=== PATIENT | female | born 1990 | race Caucasian/White ===

== ENCOUNTER 2019-07-19 11:20 | Outpatient (CLI) | payer OTHER, SELFPAY ==
--- NOTE | ~2019-07-19 | US_ITS ---
EXAMINATION: US breast LT limited HISTORY: Palpable lump of the subareolar aspect of the left breast TECHNIQUE: Limited left breast ultrasound is performed. FINDINGS: There is no evidence of focal abnormal cystic or solid mass in the vicinity of the reported left breast lump. IMPRESSION: No specific sonographic correlate is identified for the reported palpable abnormality of concern. Fur ther evaluation at this time should be based on clinical assessment. Continued follow-up physical exa mination is recommended. BI-RADS Category 1: Negative Reviewed, dictated and finalized at location A. IMPRESSION: No specific sonographic correlate is identified for the reported palpable abnor mality of concern. Further evaluation at this time should be based on clinical assessment. Continued follow-up physical examination is recommended. BI-RADS Category 1: Negative
== END 2019-07-19 11:21 | disposition home or self-care (01) ==
DX: N63.20 Unspecified lump in the left breast, unspecified quadrant (principal)
CPT/HCPCS: 76642

== ENCOUNTER 2019-11-15 15:05 | Emergency (ER) | payer OTHER, SELFPAY ==
[2019-11-15 15:18] VITALS: BP 161/95; PULSE 100; RESP 20; TEMP 36.1; O2SAT 100
--- NOTE | 2019-11-15 15:47 | ECG_ITS ---
Measurements Intervals Superior Rate: 86 P: 23 TX: 147 QRS: 22 QRSD: 89 T: 3 QT: 386 QTc: 462 Interpretive Statements SINUS RHYTHM BORDERLINE T WAVE ABNORMALITY- INFERIOR LEADS BASELINE ARTIFACT- II, III, AVF BORDERLINE ECG Electronically Signed On 11-15-2019 18:05:47 CDT by Rey Chandler D.O.
--- NOTE | 2019-11-15 15:57 | ED.GENADULT ---
HPI - General Adult General Chief complaint: Unspecified Stated complaint: chest pain/dizzy Time Seen by Provider: 11/15/19 15:20 Source: patient and RN notes reviewed Mode of arrival: ambulatory Limitations: no limitations History of Present Illness HPI narrative: patient presents today complaining of chest burning to the midline chest since yesterday. States she had some left sided pains yesterday that have since resolved. The left sided pain does not resemble the current discomfort she is experiencing. Denies pain at this time. She has been moving heavy objects last weekend because she is moving homes. She also had some Chipotle to eat yesterday but states her discomfort doesn't feel like the 1 episode of heartburn she has experienced in the past. Denies nausea, vomiting, dizziness, lightheadedness, shortness of breath, chills, sweats, fever, abdominal pain. She tried Pepto once today without relief. Denies personal cardiac history except for HTN. Denies family cardiac history. MD complaint: chest burning. Related Data Home Medications Medication Instructions Recorded Confirmed losartan 50 mg DAILY 11/15/19 11/15/19 norgestimate-ethinyl estradiol 1 tablet DAILY 11/15/19 11/15/19 [Sprintec (28)] Allergies Allergy/AdvReac Type Severity Reaction Status Date / Time No Known Allergies Allergy Verified 11/15/19 15:13 Review of Systems Review of Systems: Narrative: CONSTITUTIONAL: Denies body aches, fever, chills, or sweats. EYES: Denies visual changes, redness, or discharge. ENT: Denies rhinorrhea, congestion, sore throat, or otalgia. CARDIOVASCULAR: Denies chest pain, palpitations, or edema. +chest discomfort RESPIRATORY: Denies cough or dyspnea. GASTROINTESTINAL: Denies abdominal pain, nausea, vomiting, or diarrhea. GENITOURINARY: Denies dysuria or hematuria. SKIN: Denies rash, itching, or wounds. MUSCULOSKELETAL: Denies back pain, joint pain, or myalgia. NEUROLOGIC: Denies headache, numbness, tingling, or weakness. PSYCH: Denies depression or anxiety. [facility] Past Medical History Medical History (Updated 11/15/19 @ 16:32 by Lisa Donovan, VARNISH MELTER, BC) Hypertension Family History Family History (Updated 12/10/11 @ 14:17 by DOCTOR UNKNOWN) Other Family history of malignant neoplasm of ovary Social History Social History Smoking status: Never smoker Alcohol intake: never Gender identity (if verbalized by the patient): Female Comments At time of signature, I have reviewed and agree with nursing past medical, surgical, social and family history unless otherwise noted. Please see nursing chart for further information. There is no relevant family history pertinent to the presenting complaint Exam Narrative: Exam Narrative: GENERAL: Well-appearing, well-nourished, and in no acute distress. HEAD: Normocephalic, atraumatic. EYES: EOMI. No redness or drainage. Conjunctivae normal. ENT: Mucous membranes pink and moist. NECK: Normal AROM. Supple. No lymphadenopathy. CHEST: No respiratory distress. Clear to auscultation. Chest is nontender HEART: Regular rate and rhythm. No murmur appreciated. Normal peripheral pulses. ABDOMEN: Soft, nontender, nondistended, normal active bowel sounds. MUSCULOSKELETAL: No bony tenderness. EXTREMITIES: Normal range of motion. No edema. SKIN: Warm, dry, no rash. Capillary refill normal. Normal skin turgor. NEURO: No focal deficits. Alert and oriented x3. Gait steady. PSYCH: Normal affect. No signs of depression or anxiety. Course Vital Signs Vital signs: Vital Signs Temperature 97 F L 11/15/19 15:18 Pulse Rate 100 11/15/19 15:18 Respiratory Rate 11/15/19 15:18 Blood Pressure 161/95 H 11/15/19 15:18 Pulse Oximetry 100 11/15/19 15:18 Temperature 97 F L 11/15/19 15:18 Pulse Rate 100 11/15/19 15:18 Respiratory Rate 11/15/19 15:18 Blood Pressure 161/95 H 11/15/19 15:18 Pulse Oximetry 100 11/15/19 15:18
== END 2019-11-15 16:10 | disposition home or self-care (01) ==
PROVIDERS: Emergency Provider Nurse Practitioner
DX: R07.89 Other chest pain (principal); I10 Essential (primary) hypertension
CPT/HCPCS: 93005; 99213; G0463

== ENCOUNTER 2020-05-25 12:21 | Outpatient (CLI) | payer OTHER, SELFPAY ==
--- NOTE | ~2020-05-25 | MMUS_ITS ---
EXAMINATION: MM diagnostic kaylan BI w shamir, US breast RT complete HISTORY: Palpable right breast lump TECHNIQUE: Additional 3-D tomosynthesis images of the breasts were performed and synthetic 2-D images were generated. CAD analysis was submitted and interpreted. High resolution complete right breast ul trasound was performed. COMPARISON: Ultrasound dated 07/19/2019 BREAST PARENCHYMAL COMPOSITION: Breast composed of scattered areas of fibroglandular density. FINDINGS: MAMMOGRAPHIC FINDINGS: There are no suspicious masses, calcifications or architectural distortion in either breast to sugges t malignancy. ULTRASOUND: Complete right breast ultrasound: At 9:00 near the nipple there is an 8 mm cyst. No suspicious masses to suggest malignancy. IMPRESSION: 1. No evidence for malignancy in either breast. 2. Routine yearly screening mammogram and regular clinical breast examination are recommended. BI-RADS Category 2: Benign finding(s). Reviewed, dictated and finalized at location A. IMPRESSION: 1. No evidence for malignancy in either breast. 2. Routine yearly screening mammogram and regular clinical breast examination a re recommended. BI-RADS Category 2: Benign finding(s).
== END 2020-05-25 12:22 | disposition home or self-care (01) ==
LOC: ANHIMG 12:25
DX: N63.10 Unspecified lump in the right breast, unspecified quadrant (principal)
CPT/HCPCS: 76641; 77062; 77066; G0279

== ENCOUNTER 2023-01-13 10:37 | Outpatient (CLI) | payer OTHER, SELFPAY ==
--- NOTE | ~2023-01-13 | XR_ITS ---
EXAMINATION: XR hysterosalpingogram DATE: 01/13/2023 12:42 INDICATION: Infertility TECHNIQUE: Multiple fluoroscopic images were obtained during contrast infusion into the endometrial c anal of the uterus by the primary physician. Fluoroscopy exposure time was 0.6 minutes. FINDINGS: The uterine cavity demonstrates normal morphology. The fallopian tubes are normal in caliber and pat ent bilaterally. There is normal spillage of contrast into the peritoneum on both sides. IMPRESSION: 1. Normal hysterosalpingogram. Reviewed, dictated and finalized at location A. RAME TECHNICIAN
[2023-01-13 12:09] LABS: Beta HCG Quantitative < 2.39 mIU/ML
== END 2023-01-13 10:38 | disposition home or self-care (01) ==
PROVIDERS: Visit Provider Obstetrics & Gynecology
DX: N97.2 Female infertility of uterine origin (principal)
CPT/HCPCS: 36415; 58340; 74740; 84702; Q9966

== ENCOUNTER 2023-02-24 15:29 | Outpatient (CLI) | payer OTHER, SELFPAY ==
--- NOTE | ~2023-02-24 | MM_ITS ---
EXAMINATION: MM screening kaylan BI w shamir HISTORY: Screening mammogram TECHNIQUE: Craniocaudal and mediolateral oblique 3-D tomosynthesis images were obtained and synthetic 2-D images were generated. CAD analysis was submitted and interpreted. COMPARISON: 05/25/2020 diagnostic bilateral mammogram and complete right breast ultrasound examination 07/19/2019 limited left breast ultrasound BREAST PARENCHYMAL COMPOSITION: There are scattered areas of fibroglandular density. FINDINGS: There is no evidence of suspicious mass, calcification, or architectural distortion to sugg est malignancy in either breast. There has been no suspicious interval change. IMPRESSION: 1. No mammographic evidence of malignancy. 2. Recommend routine screening mammography in one year. BI-RADS Category 1: Negative... Reviewed, dictated and finalized at location A. NIGHT STOCKER
== END 2023-02-24 15:30 | disposition home or self-care (01) ==
PROVIDERS: Visit Provider Internal Medicine
DX: Z12.31 Encounter for screening mammogram for malignant neoplasm of breast (principal)
CPT/HCPCS: 77063; 77067

== ENCOUNTER 2023-06-12 00:43 | Inpatient (IN) | payer OTHER, SELFPAY ==
[2023-06-12] VITALS (35 sets, daily range): BP systolic 128–165; BP diastolic 63–96; PULSE 65–93; RESP 14–22; TEMP 36.3–37.2; O2SAT 96–100; BMI 40.7
--- NOTE | ~2023-06-12 | CT_ITS ---
EXAMINATION: CT abdomen pelvis w con DATE: 06/19/2023 13:35 INDICATION: Acute pancreatitis. Abdominal pain. TECHNIQUE: Computed tomography (CT) of the abdomen and pelvis was performed with 100 mL Omnipaque 350 intravenous contrast. Automated exposure control and iterative reconstruction technique were employe d. The dose-length product was 1450.10 mGy-cm. COMPARISON: CT abdomen and pelvis 06/12/2023 FINDINGS: The visualized portions of the lung bases demonstrate mild atelectasis. There are small ple ural effusions. The heart size is normal. No pericardial effusion. The liver is normal. There are gal lstones in the gallbladder, which is normal in size. The spleen, adrenal glands, and kidneys are norm al. There is extensive fat stranding centered at the pancreas with small volume of free fluid. The pa ncreas enhances throughout. There are no dilated loops of bowel. The appendix is not visualized. Ther e are no pathologically enlarged lymph nodes. There is a small volume of pelvic ascites. The bones ar e unremarkable. There is mild lumbar spondylosis. IMPRESSION: 1. Acute interstitial pancreatitis. 2. Cholelithiasis. 3. Small volume of ascites. 4. Small pleural effusions. Reviewed, dictated and finalized at location A.
--- NOTE | ~2023-06-12 | CT_ITS ---
Clinical Indication: Febrile illness CT Scan of the Chest, Abdomen, and Pelvis with Contrast: Technique: Contiguous sections were acquired throughout the chest, abdomen, and pelvis after intraven ous administration of 100 cc of Omnipaque 350. Dose reduction technique was used on this scan by francisco yepez automated exposure control and iterative reconstruction technique. The dose-length product (DL P) was 1559.88 mGy-cm. COMPARISON: 06/19/2023 Findings: There is no evidence of any significant mediastinal, hilar or axillary lymphadenopathy. The mediastin al soft tissues and vascular structures appear normal. No pericardial effusion. There is moderate left pleural effusion with partial left lower lobe atelectasis. There is discoid ri ght basilar atelectasis. The liver, spleen, pancreas, gallbladder, adrenals and kidneys are within normal limits. There is ext ensive peripancreatic inflammatory change extending into the right lower quadrant and left lower quad rant as well as in the paracolic gutters, as well as of into the epigastric region and gastrosplenic region. No definite pancreatic necrosis or pseudocyst evident. No evidence of aortic aneurysm. No ly mphadenopathy. No bowel obstruction or bowel wall thickening. There is no evidence to suggest acute appendicitis. Urinary bladder is unremarkable. No adnexal mass seen. No pelvic ascites. Impression: Acute pancreatitis is similar to prior exam, with extensive intra-abdominal/peritoneal inflammatory c hange. No pancreatic necrosis or pseudocyst evident. Moderate left pleural effusion with bibasilar atelectasis. Reviewed, dictated and finalized at [facility]. Impression: Acute pancreatitis is similar to prior exam, with extensive intra-abdominal/per itoneal inflammatory change. No pancreatic necrosis or pseudocyst evident. Moderate left pleural effusion with bibasilar atelectasis.
--- NOTE | ~2023-06-12 | MR_ITS ---
EXAMINATION: MR MRCP wo/w con/w 3D wo ind DATE: 06/13/2023 12:43 INDICATION: Transaminitis. Cholelithiasis. Epigastric abdominal pain. TECHNIQUE: Magnetic resonance imaging (MRI) of the abdomen was performed without and with 20 mL Multi Ezra intravenous contrast. Sequences included coronal T2-weighted FS FSE, coronal T2-weighted FSE, a xial T1-weighted LAVA, coronal FS FIESTA, axial dual-echo T1-weighted SPGR, coronal lava-FLEX, sagitt al T2-weighted FSE, axial T2-weighted FSE, and axial DWI. Thick-slab T2-weighted FSE images were obta ined for magnetic resonance cholangiopancreatography (MRCP). Maximum intensity projection 3-D reconst ructions of the volumetric data were created by the technologist. Postcontrast sequences included cor onal LAVA-flex and time course of axial T1-weighted LAVA. COMPARISON: CT abdomen and pelvis 06/12/2023 FINDINGS: ABDOMEN MRI: There are small pleural effusions. There is diffuse hepatic steatosis. The gallbladder i s normal in size and contains gallstones. Gallbladder wall thickening is noted. There is fat strandin g and free fluid around the pancreas, consistent with acute interstitial pancreatitis. The spleen, ad renal glands, and kidneys are normal. There are no dilated loops of bowel. There is a small volume of ascites. There is thrombus in right hepatic vein and inferior vena cava. ABDOMEN MRCP: The common duct is normal and measures 5 mm. No choledocholithiasis. IMPRESSION: 1. Acute interstitial pancreatitis. 2. Cholelithiasis. Gallbladder wall thickening is likely secondary to interstitial edema. 3. Thrombus in right hepatic vein and inferior vena cava. 4. Small volume of ascites. 5. Small pleural effusions. 6. Diffuse hepatic steatosis. Reviewed, dictated and finalized at location A. IMPRESSION: 1. Acute interstitial pancreatitis. 2. Cholelithiasis. Gallbladder wall thickening is likely secondary to interstit ial edema. 3. Thrombus in right hepatic vein and inferior vena cava. 4. Small volume of ascites. 5. Small pleural effusions. 6. Diffuse hepatic steatosis.
--- NOTE | ~2023-06-12 | CT_ITS ---
EXAMINATION: CT abdomen pelvis w con DATE: 06/12/2023 04:04 INDICATION: Right upper quadrant abdominal pain. TECHNIQUE: Computed tomography (CT) of the abdomen and pelvis was performed with 100 mL Omnipaque 350 intravenous contrast. Automated exposure control and iterative reconstruction technique were employe d. The dose-length product was 1488.47 mGy-cm. COMPARISON: None. FINDINGS: The visualized portions of the lung bases demonstrate mild atelectasis. No pleural effusion . The heart size is normal. No pericardial effusion. The liver and spleen are normal. There are galls tones in the gallbladder, which is distended. There is a 3 mm stone in the common duct. The pancreas and adrenal glands are normal. The kidneys are normal. There are no dilated loops of bowel. The appen nathan is normal. There are no pathologically enlarged lymph nodes. There is no free intraperitoneal flu id. There is mild lumbar spondylosis. IMPRESSION: 1. 3 mm stone in the common duct. No duct dilatation. 2. Cholelithiasis. Gallbladder distention may be secondary to fasting or acute cholecystitis. Reviewed, dictated and finalized at location A.
--- NOTE | ~2023-06-12 | US_ITS ---
EXAMINATION: US right upper quadrant DATE: 06/12/2023 07:40 INDICATION: Acute cholecystitis. TECHNIQUE: Multiple grayscale and Doppler ultrasound images of the abdomen were obtained. COMPARISON: CT abdomen and pelvis 06/12/2023 FINDINGS: The visualized portions of the head and body of the pancreas are normal. There is diffuse h epatic steatosis. There is normal flow in main portal vein. The gallbladder is normal in size. There are gallstones in the gallbladder. No gallbladder wall thickening or sonographic Trujillo sign. The com mon duct is normal and measures 4 mm. IMPRESSION: 1. Cholelithiasis. No evidence of acute cholecystitis. 2. Diffuse hepatic steatosis. Reviewed, dictated and finalized at location A.
--- NOTE | ~2023-06-12 | XR_ITS ---
EXAMINATION: XR ERCP DATE: 06/12/2023 15:10 CDT INDICATION: STONES . TECHNIQUE: 3 fluoroscopic images of the right upper quadrant were obtained during ERCP, performed by Dr. Kuhn. I was not present during the procedure. Fluoroscopy exposure time was 128.4 seco nds. Air Kerma 52.46 mGy. DAP 1.61 mGym2. COMPARISON: CT abdomen pelvis and right upper quadrant ultrasound, same date FINDINGS/IMPRESSION: Fluoroscopic documentation of ERCP. Please refer to the operative note for complete procedural detail s. Reviewed, dictated and finalized at location K.
[2023-06-12 01:19] LABS: Basophils Absolute Auto 0.1 K/mm3 (0.0-0.1); Basophils Percent Auto 0.7 % (0.2-1.2); Eosinophils Absolute Auto 0.2 K/mm3 (0-0.3); Eosinophils Percent Auto 2.2 % (0-4.4); Hematocrit 41.8 % (37.0-47.0); Immature Granulocyte Absolute 0.02 K/mm3 (0.00-0.031); Immature Granulocyte Percent A 0.2 % (0-0.5); Lymphocytes Absolute Auto 3.29 K/mm3 (0.9-3.2); Lymphocytes Percent Auto 35.1 % (18.3-44.2); Mean Corpuscular HGB Conc 31.1 g/dl (32-36); Mean Corpuscular Hemoglobin 25.6 pg (26-34); Mean Corpuscular Volume 82.4 fl (80-100); Monocytes Percent Auto 10.4 % (2.6-8.5); Neutrophils Absolute Auto 4.8 K/mm3 (1.3-6.7); Neutrophils Percent Auto 51.4 % (45.5-73.1); Platelet Count Result 367 k/mm3 (150-375); Red Blood Count 5.07 M/mm3 (4.2-5.4); Red Cell Distribution Width 14.4 % (11.5-14.5); White Blood Count 9.4 K/mm3 (4.5-10.0)
--- NOTE | 2023-06-12 01:35 | PC.NURSE ---
Pt aware of need for urine sample.
[2023-06-12 02:07] LABS: Alanine Aminotransferase 47 U/L (6-35); Albumin Level 4.2 g/dL (3.5-5.1); Alkaline Phosphatase 106 U/L (38-126); Anion Gap 5 mmol/L (4-12); Aspartate Amino Transferase 52 U/L (14-36); Bilirubin,Total 0.4 mg/dL (0.2-1.3); Blood Urea Nitrogen 15 mg/dL (7-17); Calcium 9.3 mg/dL (8.4-10.2); Carbon Dioxide 28 mmol/L (22-30); Chloride 105 mmol/L (98-107); Estimated CRCL calculation 113 ml/min; Estimated Glomerular Filt Rate > 60; Glucose 126 mg/dL (65-110); Lipase 82 U/L (23-300); Potassium 4.1 mmol/L (3.4-5.0); Sodium 138 mmol/L (137-145)
[2023-06-12 03:42] LABS: Appearance Urine Cloudy (Clear); Bacteria Urine None Seen /hpf; Bilirubin Urine Negative (Negative); Blood Urine Negative (Negative); Color Urine Yellow (Yellow); Glucose Urine UA Negative (Negative); Ketones Urine Negative (Negative); Leukocyte Esterase Ur Negative LEU/UL (Negative); Nitrate Urine Negative (Negative); Non Pathogenic Casts 0-2; Protein Urine Negative (Negative); RBC Urine 0-2 /hpf (0-2); Specific Grav Ur 1.019 (1.001-1.035); Squamous Epithelial Cell Urine None Seen /hpf (Few); WBC Urine 0-5 /hpf (0-3); pH Urine 7.5 (5.0-9.0)
[2023-06-12 03:46] LABS: Add Urine Microscopic? YES
--- NOTE | 2023-06-12 05:36 | ED.ABDPAIN ---
HPI - Abdominal Pain General Chief Complaint: Abdominal Pain Stated Complaint: epigastric pain Time Seen by Provider: 06/12/23 02:27 History of Present Illness HPI narrative: Patient is a 32-year-old female who presents to the emergency department this evening complaining of right upper quadrant and mid epigastric abdominal pain. Patient states that the pain started around 10:00 p.m. and it was 1 of the worst pain she has ever experienced. Patient states that since then the pain has subsided and right now she feels a dull ache that starts in her mid epigastric right upper quadrant region and radiates through to her back. Patient admits nausea and vomiting secondary to the pain. She denies any previous abdominal surgeries, any recent illness, any fevers or chills, and denies any chest pain or shortness of breath. There are no other modifying, alleviating, or precipitating factors at the Related Data Home Medications Medication Instructions Recorded Confirmed losartan 50 mg tablet 50 mg DAILY 11/15/19 11/15/19 norgestimate 0.25 mg-ethinyl 1 tablet DAILY 11/15/19 11/15/19 estradiol 35 mcg tablet (Sprintec (28)) Allergies Allergy/AdvReac Type Severity Reaction Status Date / Time No Known Allergies Allergy Verified 11/15/19 15:13 Review of Systems Review of Systems: All systems are reviewed and are negative unless stated otherwise in the HPI. [facility] Past Medical History Medical History Hypertension Family History Family History Other Family history of malignant neoplasm of ovary Social History Social History Smoking status: Never smoker Alcohol intake: never Gender identity (if verbalized by the patient): Female Exam Narrative: General: Alert, awake, afebrile, in no acute distress. HEENT: PERRL, no rhinorrhea, no post nasal drip, oropharynx clear. Neck: Trachea midline, no JVD, no lymphadenopathy. Cardiovascular: Regular rate and rhythm, no murmurs, rubs or gallops, no peripheral edema. Respiratory: Clear to auscultation bilaterally, no tachypnea, no wheezing, no rhonchi, no rubs, no respiratory distress. Abdomen: Soft, mild tenderness in the midepigastric region, nondistended, no rebound, no guarding, no peritoneal signs. Musculoskeletal: No joint swelling or deformity, normal muscle tone. Skin: No rashes or petechia, no signs of infection. Psychiatric: Alert and oriented, normal behavior and judgment for situation. Neurological: Alert and oriented to person, place, and time. Follows all commands. No focal deficits, speech is clear and fluent. Course Vital Signs Vital signs: Vital Signs Temperature 98.6 F 06/12/23 00:46 Pulse Rate 75 06/12/23 00:46 Respiratory Rate 18 06/12/23 00:46 Blood Pressure 147/83 H 06/12/23 00:46 Pulse Oximetry 99 06/12/23 00:46 Oxygen Delivery Room Air 06/12/23 00:46 Temperature 98.6 F 06/12/23 00:46 Pulse Rate 79 06/12/23 06:26 Respiratory Rate 16 06/12/23 06:26 Blood Pressure 133/74 06/12/23 06:26 Pulse Oximetry 100 06/12/23 06:26 Oxygen Delivery Room Air 06/12/23 00:46 MDM - Abdominal Pain MDM Narrative Medical decision making narrative: The patient was evaluated by myself in the emergency department. History is obtained from patient who is an independent historian and physical exam was performed. External medical records were reviewed at this time. IV was established and pertinent tests were ordered. Patient was administered 50 mg of IV Toradol after urine test was noted to be negative and started on maintenance fluids with normal saline at a rate of 150 cc/hour. Patient was also administered 4 mg of IV Zofran. Laboratory results obtained revealing mild transaminitis, otherwise unremarkable. Imaging studies obtained include
[2023-06-12] MEDS: KETOROLAC 15 MG/ML VIAL (*BKC) IV PUSH (05:50)
--- NOTE | 2023-06-12 07:31 | PM.IMHP ---
H&P: HPI History of Present Illness Date/Time: 06/12/23 07:31 Chief Complaint: Abdominal pain Narrative: 32 years old lady with history of hypertension, present ED with a chief complaint of abdomen pain. Patient started having right upper quadrant pain yesterday at about 10:00 p.m., radiating to the back. Patient has intermittent nausea vomiting because of pain. Patient denies fever, chills, chest pain, shortness of breath t, headache, focal weakness, dysuria. Patient came to ED for evaluation and treatment. Upon arrival in the ED, patient was afebrile, blood pressure stable, pulse ox 90 room air, CBC and BMP are unremarkable, CT scan report 3 mm stone in the common duct without duct dilatation, gallstone, gallbladder distension suggesting acute cholecystitis. Patient received Rocephin in the ED. We admit patient will for evaluation and treatment Review of Systems Review of Systems: ROS is negative except above PMFSH Past Medical History Medical History Hypertension Family History Family History Other Family history of malignant neoplasm of ovary Social History Social History Smoking status: Never smoker Alcohol intake: never Substance use: never Do You Feel Safe in your Home?: Yes Lack of Transportation: No Lack of Food: Never True Current Housing: I Have Housing Concerned About Future Housing: No Difficulty Paying Gas/Electric Bills: No Difficulty Paying for Meds: No Currently Unemployed: No Education: Decline to Answer Difficulty w/ Childcare or Family Care: No Gender identity (if verbalized by the patient): Female Spiritual care concerns: No Meds Home Medications and Allergies Home Medications Medication Instructions Recorded Confirmed Type labetalol 100 mg tablet See Rx Instructions .Route .COMPLEX 06/12/23 06/12/23 History Allergies Allergy/AdvReac Type Severity Reaction Status Date / Time No Known Allergies Allergy Verified 06/12/23 13:53 Vital Signs Vital Signs - 24 hr 06/12/23 00:46 06/12/23 02:19 06/12/23 01:19 Temperature 98.6 F Pulse Rate 75 76 Respiratory Rate 18 16 Blood Pressure 147/83 H 135/73 Pulse Oximetry 99 100 100 Oxygen Delivery Room Air 06/12/23 01:30 06/12/23 01:31 06/12/23 01:54 Temperature Pulse Rate 90 Respiratory Rate 22 H Blood Pressure 141/78 H Pulse Oximetry 99 100 100 Oxygen Delivery 06/12/23 02:09 06/12/23 02:15 06/12/23 02:19 Temperature Pulse Rate 69 Respiratory Rate 18 Blood Pressure 135/79 Pulse Oximetry 100 100 100 Oxygen Delivery 06/12/23 02:30 06/12/23 02:31 06/12/23 02:45 Temperature Pulse Rate 65 Respiratory Rate 14 Blood Pressure 129/77 Pulse Oximetry 100 100 100 Oxygen Delivery 06/12/23 02:46 06/12/23 03:00 06/12/23 03:01 Temperature Pulse Rate 70 Respiratory Rate 14 Blood Pressure 141/94 H 128/63 Pulse Oximetry 99 100 100 Oxygen Delivery 06/12/23 03:16 06/12/23 03:17 06/12/23 03:30 Temperature Pulse Rate Respiratory Rate Blood Pressure 132/66 Pulse Oximetry 100 100 99 Oxygen Delivery 06/12/23 03:31 06/12/23 04:14 06/12/23 04:15 Temperature Pulse Rate 86 Respiratory Rate 19 Blood Pressure 165/85 H Pulse Oximetry 99 99 100 Oxygen Delivery 06/12/23 04:25 06/12/23 04:44 06/12/23 04:45 Temperature Pulse Rate 77 Respiratory Rate 16 Blood Pressure 133/86 Pulse Oximetry 100 99 97 Oxygen Delivery 06/12/23 06:26 Temperature Pulse Rate 79 Respiratory Rate 16 Blood Pressure 133/74 Pulse Oximetry 100 Oxygen Delivery Exam Narrative: GENERAL: Pleasant, in no acute distress. Well-nourished. - EYES: EOMI. Anicteric. - HENT: Moist mucous membranes. - LUNGS: Clear to auscultation b
--- NOTE | 2023-06-12 07:42 | PC.NURSE ---
Pt to U/S via w/c.
--- NOTE | 2023-06-12 08:35 | ADMGEN ---
This patient, Narcisa Dupont, was admitted to 3 [facility] Surg Room 315-02 @ 08. Patient/family oriented to hospital policies and general routines including ID bracelet, bed and alarms, visiting hours, pain management, procedures, bathroom and other care routines, personal items, smoking policy, room service/diet, and visiting hours. Information on how to activate the Rapid Response Team has been discussed. Patient/Family are encouraged to report perceived risks to care and to ask questions if they do not understand what they are told or what they should do.
[2023-06-12] MEDS: LACTATED RINGERS 1,000 ML 100 ML IV CONT (09:25)
[2023-06-12] MEDS: metroNIDAZOLE 500 MG/ISO 100ML 500 MG/100 ML BAG 100 MG IVPB ×2 (09:28→21:05)
[2023-06-12] MEDS: LACTATED RINGERS 1,000 ML 150 ML IV CONT (13:59)
--- NOTE | 2023-06-12 14:02 | WPDANESEPPF ---
Anes - Initial Pre Proc Eval Procedure: Operation Date: 06/12/23 15:30 Proposed Procedures p Endoscopic Retro Cholangiopancreatogram - Jhoan Kuhn MD Date/Time: 06/12/23 14:02 Surgeon: Camron Gu MD Pre Op Diagnosis: Concern for Acute Cholecystitis Patient Data Age: 32 Gender: F Height: 1.6 m Weight: 104.33 kg Last Vital Signs Temp 97.4 F L 06/12/23 13:56 Pulse 85 06/12/23 13:56 Resp 16 06/12/23 13:56 BP 138/82 06/12/23 13:56 Pulse Ox 100 06/12/23 13:56 O2 Del Method Room Air 06/12/23 13:56 Allergies Allergy/AdvReac Type Severity Reaction Status Date / Time No Known Allergies Allergy Verified 06/12/23 13:53 Home Medications Medication Instructions Recorded Confirmed Type labetalol 100 mg tablet See Rx Instructions .Route .COMPLEX 06/12/23 06/12/23 History Laboratory Tests 06/12/23 06/12/23 06/12/23 01:14 01:48 03:30 WBC 9.4 K/mm3 (4.5-10.0) RBC 5.07 M/mm3 (4.2-5.4) Hgb 13.0 g/dL (12.0-15.0) Hct 41.8 % (37.0-47.0) MCV 82.4 fl (80-100) MCH 25.6 L pg (26-34) MCHC 31.1 L g/dl (32-36) RDW 14.4 % (11.5-14.5) Plt Count 367 k/mm3 (150-375) MPV 10.0 fl (7.4-10.4) Immature Gran % (Auto) 0.2 % (0-0.5) Neut % (Auto) 51.4 % (45.5-73.1) Lymph % (Auto) 35.1 % (18.3-44.2) [place] % (Auto) 10.4 H % (2.6-8.5) Eos % (Auto) 2.2 % (0-4.4) Baso % (Auto) 0.7 % (0.2-1.2) Lymph # (Auto) 3.29 H K/mm3 (0.9-3.2) [place] # (Auto) 1.0 H K/mm3 (0.1-0.6) Eos # (Auto) 0.2 K/mm3 (0-0.3) Baso # (Auto) 0.1 K/mm3 (0.0-0.1) Abs Immat Gran (auto) 0.02 K/mm3 (0.00-0.031) Absolute Neuts (auto) 4.8 K/mm3 (1.3-6.7) Absolute Nucleated RBC 0.000 K/mm3 (0.0-0.012) Nucleated RBC % 0.0 % (0.0-0.2) Sodium 138 mmol/L (137-145) Potassium 4.1 mmol/L (3.4-5.0) Chloride 105 mmol/L (98-107) Carbon Dioxide 28 mmol/L (22-30) Anion Gap 5 mmol/L (4-12) BUN 15 mg/dL (7-17) Creatinine 0.70 mg/dL (0.7-1.0) Estim Creat Clear Calc 113 ml/min Estimated GFR > 60 (59 - ) Glucose 126 H mg/dL (65-110) Calcium 9.3 mg/dL (8.4-10.2) Total Bilirubin 0.4 mg/dL (0.2-1.3) AST 52 H U/L (14-36) ALT 47 H U/L (6-35) Alkaline Phosphatase 106 U/L (38-126) Total Protein 8.0 g/dL (6.3-8.2) Albumin 4.2 g/dL (3.5-5.1) Lipase 82 U/L (23-300) Urine Color Yellow (Yellow) Urine Appearance Cloudy H (Clear) Urine pH 7.5 (5.0-9.0) Ur Specific [place] 1.019 (1.001-1.035) Urine Protein Negative mg/dL (Negative) Urine Glucose (UA) Negative mg/dL (Negative) Urine Ketones Negative mg/dL (Negative) Ur Blood (Man) Negative (Negative) Urine Nitrate Negative (Negative) Urine Bilirubin Negative (Negative) Urine Urobilinogen 1.0 mg/dL (<2.0) Leukocyte Esterase Rfl Negative TITO/UL (Negative) Urine RBC 0-2 /hpf (0-2) Urine WBC 0-5 /hpf (0-3) Ur Squamous Epith Cells None seen /hpf (Few) Urine Bacteria None seen /hpf Urine Casts 0-2 Patient hx anesthesia problems: none Family hx anesthesia problems: none Results Review: All pre-operative results and documents have been reviewed as part of the pre-operative evaluation. PMFSH Past Medical History Medical History Hypertension Family History Family History Other Family history of malignant n
--- NOTE | 2023-06-12 15:10 | WPDGICN ---
Assessment and Plan Assessment and plan (1) RUQ pain: Code(s): R10.11 - Right upper quadrant pain Status: Acute Assessment and Plan: CT reviewed and small stone in bile duct she is agreeable to proceed with ERCP to assess biliary system, understood benefit vs risk including pancreatitis surgery on board, may need interval cholecystectomy (2) Nausea & vomiting: Code(s): R11.2 - Nausea with vomiting, unspecified Status: Acute Assessment and Plan: resolved (3) Choledocholithiasis with acute cholecystitis: Code(s): K80.42 - Calculus of bile duct with acute cholecystitis without obstruction Status: Acute Assessment and Plan: will proceed with ercp (4) Transaminitis: Code(s): R74.01 - Elevation of levels of liver transaminase levels Status: Acute GI Consult Note Consult date/time: 06/12/23 15:10 Reason for consult: ruq pain, choledocholithiasis HPI: Narcisa Dupont is a 32 year old female with history of hypertension, present ED with a chief complaint of new onset of abdomen pain.? She had right upper quadrant pain yesterday at about 10:00 p.m and radiated to the back, never had such as severe pain, also had nausea.? ER evaluation with normal bili, transaminases 45-50, CT scan report 3 mm stone in the common duct without duct dilatation, gallstone, gallbladder distension suggesting acute cholecystitis. Pain is better now. Denies previous GI surgeries. Review of Systems Constitutional: Constitutional: Denies headache(s) and Denies weakness Eyes: Eyes: Denies blurry vision ENT: Reports Normal hearing present, Denies headache(s) and Denies neck pain Cardiovascular: Cardiovascular: Denies chest pain and Denies dyspnea Respiratory: Respiratory: Denies dyspnea Gastrointestinal: Gastrointestinal: Reports abdominal pain and Reports nausea Genitourinary: Genitourinary: Denies dysuria Musculoskeletal: Musculoskeletal: Denies neck pain Integumentary/Breasts: Skin/Breast: Denies dry skin Neurologic: Reports Normal hearing present, Denies headache(s) and Denies weakness Psychiatric: Psychiatric: Denies anxiety Endocrine: Endocrine: Denies change in body appearance Hematologic/Lymphatic: Hematologic/Lymphatic: Denies easy bleeding Allergic/Immunologic: Allergic/Immunologic: Denies urticaria PMFSH Past Medical History Medical History (Updated 06/12/23 @ 16:40 by Jhoan Kuhn MD) Hypertension RUQ pain Family History Family History Other Family history of malignant neoplasm of ovary Social History Social History Smoking status: Never smoker Alcohol intake: never Substance use: never Do You Feel Safe in your Home?: Yes Lack of Transportation: No Lack of Food: Never True Current Housing: I Have Housing Concerned About Future Housing: No Difficulty Paying Gas/Electric Bills: No Difficulty Paying for Meds: No Currently Unemployed: No Education: Decline to Answer Difficulty w/ Childcare or Family Care: No Gender identity (if verbalized by the patient): Female Spiritual care concerns: No Meds Home Medications and Allergies Home Medications Medication Instructions Recorded Confirmed Type labetalol 100 mg tablet See Rx Instructions .Route .COMPLEX 06/12/23 06/12/23 History Allergies Allergy/AdvReac Type Severity Reaction Status Date / Time No Known Allergies Allergy Verified 06/12/23 13:53 Vital Signs Vital Signs - 24 hr 06/12/23 00:46 06/12/23 02:19 06/12/23 01:19 Temperature 98.6 F Pulse Rate 75 76 Respiratory Rate 18 16 Blood Pressure 147/83 H 135/73 Pulse Oximetry 99 100 100 Oxygen Delivery Room Air 06/12/23 01:30 06/12/23 01:31 06/12/23 01:54 Temperature Pulse Rate 90 Respiratory Rate 22 H Blood Pressure 141/78 H Pulse Oxime
[2023-06-12] MEDS: INDOMETHACIN 50 MG SUPP.RECT RECTAL (15:44)
--- NOTE | 2023-06-12 18:58 | WPDCN ---
Assessment and Plan Assessment and plan (1) Cholelithiasis: Code(s): K80.20 - Calculus of gallbladder without cholecystitis without obstruction Status: Acute Assessment and Plan: patient has cholelithiasis on abdominal ultrasound. No evidence of acute or chronic cholecystitis seen. Her recent episode of acute epigastric abdominal pain can be explained by likely passage of a common bile duct stone. No evidence of acute cholecystitis. She does not have any right upper quadrant pain to palpation at this time. I think she has passed a small gallstone which caused her to have the pain and her ERCP was negative for retained common bile duct stone. I discussed with her the risks of recurrent choledocholithiasis given that she has gallstones which are the right side to get out of her gallbladder. Have recommended that she have a elective laparoscopic cholecystectomy to prevent further episodes of common bile duct stones and possible development of gallstone pancreatitis. She is agreeable to this plan. I think she is tolerating diet tomorrow and doing well that she we discharged home. I will then have her follow-up see me in the office to set up an elective laparoscopic cholecystectomy in the near future. (2) Choledocholithiasis: Code(s): K80.50 - Calculus of bile duct without cholangitis or cholecystitis without obstruction Status: Acute Assessment and Plan: Likely passed a common bile duct stone. No retained stone was seen on ERCP. She does have residual cholelithiasis and I recommended that she undergo laparoscopic cholecystectomy electively as an outpatient. HPI Data of Consult Date/Time: 06/12/23 18:58 Requesting Physician: Camron Gu MD Primary Care Provider: UNKNOWN,DOCTOR Consult Narrative Reason for consult: cholelithiasis, common bile duct stone Narrative: Narcisa Dupont is a 32 year old female was admitted [facility] with severe epigastric and abdominal pain which radiated to her back. That was her 1st episode. Her workup in the emergency room showed a likely 3mm common bile duct stone CT scan. She was admitted to the hospital and seen by Dr. Ochoa who performed an ERCP on the patient. He swept the common bile duct and did not find a retained common bile duct stone. Did perform a sphincterotomy. The patient denies having any prior episodes of epigastric and right upper quadrant abdominal pain. She has not had any problems with eating and having pain or nausea. Abdominal ultrasound performed prior to her ERCP showed cholelithiasis but no obvious evidence of acute or chronic cholecystitis. I have been asked to see the patient for an opinion as to whether patient needs to have a cholecystectomy. Review of Systems Review of Systems: The remainder of the review of systems to include constitutional, HEENT, cardiovascular, respiratory, GI, , integumentary, musculoskeletal, endocrine, immunologic, hematologic, psychiatric, and neurologic are all negative except for which is mentioned above in the HPI. [facility] Past Medical History Medical History Hypertension RUQ pain Family History Family History Other Family history of malignant neoplasm of ovary Social History Social History Smoking status: Never smoker Alcohol intake: never Substance use: never Do You Feel Safe in your Home?: Yes Lack of Transportation: No Lack of Food: Never True Current Housing: I Have Housing Concerned About Future Housing: No Difficulty Paying Gas/Electric Bills: No Difficulty Paying for Meds: No Currently Unemployed: No Education: Decline to Answer Difficulty w/ Childcare or Family Care: No Gender identity (if verbalized by the patient): Female Spiritual care concerns: No Meds Sourav
[2023-06-12] MEDS: MORPHINE SULFATE (*CRX) 2 MG/ML INJ 4 MG IV PUSH (19:20)
[2023-06-12] MEDS: ONDANSETRON INJ 4 MG/2 ML VIAL IV PUSH (21:13)
[2023-06-13] MEDS: ACETAMINOPHEN 325 MG TABLET 650 MG PO ×4 (02:15→17:07)
[2023-06-13] MEDS: LACTATED RINGERS 1,000 ML 100 ML IV CONT ×2 (02:18→19:11)
[2023-06-13 04:00] VITALS: BP 126/75; PULSE 80; RESP 14; TEMP 36.7; O2SAT 97
[2023-06-13] MEDS: ONDANSETRON INJ 4 MG/2 ML VIAL IV PUSH ×3 (04:28→17:07)
[2023-06-13] MEDS: metroNIDAZOLE 500 MG/ISO 100ML 500 MG/100 ML BAG 100 MG IVPB ×3 (04:28→20:33)
[2023-06-13 05:42] LABS: Basophils Percent Auto 0.1 % (0.2-1.2); Eosinophils Percent Auto 0.2 % (0-4.4); Hematocrit 46.9 % (37.0-47.0); Hemoglobin 14.3 g/dL (12.0-15.0); Immature Granulocyte Absolute 0.05 K/mm3 (0.00-0.031); Immature Granulocyte Percent A 0.5 % (0-0.5); Immature Platelet Fraction Pct 4.8 % (0.9-11.2); Lymphocytes Percent Auto 7.8 % (18.3-44.2); Mean Corpuscular HGB Conc 30.5 g/dl (32-36); Mean Corpuscular Hemoglobin 25.3 pg (26-34); Mean Corpuscular Volume 82.9 fl (80-100); Mean Platelet Volume 10.6 fl (7.4-10.4); Monocytes Absolute Auto 1.3 K/mm3 (0.1-0.6); Neutrophils Percent Auto 78.4 % (45.5-73.1); Platelet Count Result 349 k/mm3 (150-375); Red Blood Count 5.66 M/mm3 (4.2-5.4); Red Cell Distribution Width 14.6 % (11.5-14.5); White Blood Count 10.2 K/mm3 (4.5-10.0)
[2023-06-13 05:56] LABS: Alkaline Phosphatase 183 U/L (38-126); Anion Gap 6 mmol/L (4-12); Bilirubin,Total 2.4 mg/dL (0.2-1.3); Blood Urea Nitrogen 15 mg/dL (7-17); Calcium 8.8 mg/dL (8.4-10.2); Carbon Dioxide 24 mmol/L (22-30); Chloride 107 mmol/L (98-107); Estimated CRCL calculation 153 ml/min; Estimated Glomerular Filt Rate > 60; Glucose 126 mg/dL (65-110); Potassium 4.3 mmol/L (3.4-5.0); Sodium 137 mmol/L (137-145)
[2023-06-13 06:27] LABS: Alanine Aminotransferase 837 U/L (6-35); Aspartate Amino Transferase 753 U/L (14-36)
[2023-06-13] MEDS: MORPHINE SULFATE (*CRX) 2 MG/ML INJ 4 MG IV PUSH (08:16)
[2023-06-13] MEDS: cefTRIAXone 2 GM/NS 100 ML 2 GM/100 ML BAG IVPB (08:17)
--- NOTE | 2023-06-13 09:12 | WPDPN ---
Progress Note: A&P Assessment and Plan (1) Cholelithiasis: Code(s): K80.20 - Calculus of gallbladder without cholecystitis without obstruction Status: Acute Assessment and Plan: Worsening epigastric abdominal pain with marked elevation of her liver enzymes and bilirubin elevated at 2.4 after ERCP yesterday. No cough retained common bile duct stone was seen on ERCP despite a stone being seen on admission CT scan. Sphincterotomy was performed with the ERCP as per the endoscopy note. Abdominal ultrasound yesterday showed gallstones but no evidence of gallbladder wall thickening or acute inflammation of the gallbladder. Given the location of her pain and the fact she had an ERCP yesterday she may have developed post ERCP pancreatitis. That may explain her epigastric pain. I have ordered the lipase to be done this morning. Will also order an MRCP to be done to make sure there is no issues with the bile ducts. Supportive management for now. She will not be discharged today. Expected management depends on further information from ongoing testing. (2) RUQ pain: Code(s): R10.11 - Right upper quadrant pain Status: Acute Assessment and Plan: Patient is having more epigastric pain rather the right upper quadrant pain. She now has a transaminitis after her ERCP. Will have Dr. Ochoa comment on whether she might have developed post ERCP pancreatitis. No evidence of acute cholecystitis was seen ultrasound yesterday. Cannot rule out that she has developed that in the interim although that would be unusual. Await results of the MRCP and lipase levels. Subjective Date/time seen: 06/13/23 09:12 Interval history: Patient is feeling worse today. Having nausea and epigastric pain overnight. Also had some emesis. White blood cell count is now elevated to 10,200. Yesterday was 9400 prior to her ERCP. She did have ERCP yesterday with no obvious evidence of retained common bile duct stone. Liver enzymes of all elevated today the bilirubin 2.4 with marked elevation in her AST, ALT, and alkaline phosphatase. Lipase level is now pending. No fever or tachycardia. Exam GI: Other: Abdomen is obese but soft. There was moderate tenderness to palpation epigastric region abdomen. Much less tenderness in the right upper quadrant over the area the gallbladder. No generalized peritoneal signs. Objective Data Vital Signs Vital Signs: Vital Signs - 24 hr 06/12/23 13:56 06/12/23 15:55 06/12/23 16:05 Temperature 36.3 C L 36.7 C Pulse Rate 85 84 80 Respiratory Rate 16 19 18 Blood Pressure 138/82 143/90 H 137/85 Pulse Oximetry 100 100 100 Oxygen Delivery Room Air Simple Face Mask Simple Face Mask Oxygen Flow Rate 6 6 06/12/23 16:15 06/12/23 16:25 06/12/23 16:35 Temperature 36.3 C L Pulse Rate 92 89 81 Respiratory Rate 22 H 19 22 H Blood Pressure 133/92 H 144/93 H 140/92 H Pulse Oximetry 100 98 100 Oxygen Delivery Room Air Room Air Room Air Oxygen Flow Rate 06/12/23 16:45 06/12/23 16:55 06/12/23 18:58 Temperature 36.6 C 37.2 C Pulse Rate 72 71 77 Respiratory Rate 21 H 18 17 Blood Pressure 136/87 139/88 142/79 H Pulse Oximetry 100 100 98 Oxygen Delivery Room Air Room Air Oxygen Flow Rate 06/12/23 20:00 06/12/23 20:00 06/13/23 04:00 Temperature 36.8 C 36.7 C Pulse Rate 78 80 Respiratory Rate 14 14 Blood Pressure 139/93 H 126/75 Pulse Oximetry 96 97 Oxygen Delivery Room Air Oxygen Flow Rate Intake/Output Intake/Output: Intake & Output 06/10/23 06/11/23 06/12/23 06/13/23 23:59 23:59 23:59 23:59 Intake Total 1058.3 1408.3 Output Total 600 Balance 1058.3 808.3 Meds/Results Medications: Active Medications Generic Name Dose Route Start Last Admin Trade Name Mimi PRN Reason Stop Dose Admin Acetaminophen 650 mg 06/13/23 01:13 06/13/23 06:26 Acetaminophen 325 Mg Tablet PO 650 mg Q4H PRN Administration Mild Pain (1-3) or Fever
[2023-06-13 11:13] LABS: Lipase 16626 U/L (23-300)
--- NOTE | 2023-06-13 12:47 | WPDGIPROGNO ---
Progress Note: A&P Assessment and Plan (1) Choledocholithiasis: Code(s): K80.50 - Calculus of bile duct without cholangitis or cholecystitis without obstruction Status: Acute Assessment and Plan: ercp yesterday with normal bile duct after multiple balloon sweeps unfortunately today with post ercp pancreatitis npo, fluids, pain control surgery on board (2) Post-ERCP acute pancreatitis: Code(s): K91.89 - Other postprocedural complications and disorders of digestive system; K85.90 - Acute pancreatitis without necrosis or infection, unspecified Status: Acute (3) Cholelithiasis: Code(s): K80.20 - Calculus of gallbladder without cholecystitis without obstruction Status: Acute (4) RUQ pain: Code(s): R10.11 - Right upper quadrant pain Status: Acute (5) Transaminitis: Code(s): R74.01 - Elevation of levels of liver transaminase levels Status: Acute Assessment and Plan: more elevated lft from pancreatitis bile duct was clean Subjective Date/time seen: 06/13/23 12:47 Interval history: ercp yesterday with sphincterotomy, normal bile duct size, no stones (it seems that already passed), limited pancreatogram showed normal PD today epigastric pain and nausea, labs c/w post ercp pancreatitis Review of Systems Review of Systems: All systems reviewed & are unremarkable except as noted in HPI and below Exam Const: General: No in distress HENMT: Face/Nose/Sinus: Normal nares present Eyes: Sclera: sclerae normal Neck: Neck: supple Resp: Effort & Inspection: normal respiratory effort Cardio: Rate: regular rate GI: GI Palp: Yes Tenderness to palpation present (GI) (epigastric, no rebound) Auscultation: normal bowel sounds Skin: General skin exam: normal color Neuro: Speech: normal speech Motor exam (neuro): 5/5 motor strength present throughout Extrem: General: normal to inspection Psych: Mental Status: mental status grossly normal Objective Data Vital Signs Vital Signs: Vital Signs - 24 hr 06/12/23 13:56 06/12/23 15:55 06/12/23 16:05 Temperature 97.4 F L 98.0 F Pulse Rate 85 84 80 Respiratory Rate 16 19 18 Blood Pressure 138/82 143/90 H 137/85 Pulse Oximetry 100 100 100 Oxygen Delivery Room Air Simple Face Mask Simple Face Mask Oxygen Flow Rate 6 6 06/12/23 16:15 06/12/23 16:25 06/12/23 16:35 Temperature 97.4 F L Pulse Rate 92 89 81 Respiratory Rate 22 H 19 22 H Blood Pressure 133/92 H 144/93 H 140/92 H Pulse Oximetry 100 98 100 Oxygen Delivery Room Air Room Air Room Air Oxygen Flow Rate 06/12/23 16:45 06/12/23 16:55 06/12/23 18:58 Temperature 97.9 F 98.9 F Pulse Rate 72 71 77 Respiratory Rate 21 H 18 17 Blood Pressure 136/87 139/88 142/79 H Pulse Oximetry 100 100 98 Oxygen Delivery Room Air Room Air Oxygen Flow Rate 06/12/23 20:00 06/12/23 20:00 06/13/23 04:00 Temperature 98.3 F 98.1 F Pulse Rate 78 80 Respiratory Rate 14 14 Blood Pressure 139/93 H 126/75 Pulse Oximetry 96 97 Oxygen Delivery Room Air Oxygen Flow Rate 06/13/23 08:10 Temperature Pulse Rate Respiratory Rate Blood Pressure Pulse Oximetry Oxygen Delivery Room Air Oxygen Flow Rate Intake/Output Intake/Output: Intake & Output 06/10/23 06/11/23 06/12/23 06/13/23 23:59 23:59 23:59 23:59 Intake Total 1058.3 1408.3 Output Total 600 Balance 1058.3 808.3 Meds/Results Medications: Active Medications Generic Name Dose Route Start Last Admin Trade Name Freq PRN Reason Stop Dose Admin Acetaminophen 650 mg 06/13/23 01:13 06/13/23 11:21 Acetaminophen 325 Mg Tablet PO 650 mg Q4H PRN Administration Mild Pain (1-3) or Fever Hydromorphone HCl 1 mg 06/13/23 09:19 Hydromorphone Hcl Inj (*Crx) 1 Mg/Ml Syr IV PUSH Q3H PRN Pain Rated 7-10 Metronidazole 500 mg in 100 mls @ 100 mls/hr 06/12/23 08:00 06/13/23 06:25 Flagyl 500 Mg/Iso Soln 100 Ml IVPB Infused
[2023-06-13 14:00] VITALS: BP 112/62; PULSE 82; RESP 16; TEMP 36.3; O2SAT 96
[2023-06-13] MEDS: HYDROmorphone HCL INJ (*CRX) 1 MG/ML SYR IV PUSH ×2 (14:34→19:38)
--- NOTE | 2023-06-13 16:56 | PM.IMPN ---
Progress Note: A&P Assessment and Plan (1) Acute cholecystitis due to biliary calculus: Code(s): K80.00 - Calculus of gallbladder with acute cholecystitis without obstruction Status: Acute Assessment and Plan: Continue bowel rest Continue IVF Continue analgesics Continue ceftriaxone (2) Choledocholithiasis with acute cholecystitis: Code(s): K80.42 - Calculus of bile duct with acute cholecystitis without obstruction Status: Acute Assessment and Plan: MRCP 4/6 results pending (3) Post-ERCP acute pancreatitis: Code(s): K91.89 - Other postprocedural complications and disorders of digestive system; K85.90 - Acute pancreatitis without necrosis or infection, unspecified Status: Acute Assessment and Plan: Continue supportive care Subjective Date/time seen: 06/13/23 16:56 Interval history: Continues with [id number] epigastric pain radiating to shoulders and back. Moderate to severe with movement or any liquid intake. No nausea vomiting chest pain shortness of breath or other GI changes. Review of Systems Review of Systems: All systems reviewed & are unremarkable except as noted in HPI and below Exam Narrative: HEENT: PERRL, sclerae nonicteric, pharyngeal mucosa pink and intact NECK: No JVD CHEST: Clear to auscultation. Normal effort. HEART: NL S1/S2, regular, no murmur ABDOMEN: BS+, soft, TENDER EPIGASTRIUM, no mass, no bruits EXTREMITIES: No cyanosis, edema, or clubbing NEUROLOGIC: CN intact and symmetric to inspection. MUSCULOSKELETAL: Tone and strength symmetric. PSYCH: Alert. Oriented to person, place, and time. Objective Data Vital Signs Vital Signs: Vital Signs - 24 hr 06/12/23 18:58 06/12/23 20:00 06/12/23 20:00 Temperature 98.9 F 98.3 F Pulse Rate 77 78 Respiratory Rate 17 14 Blood Pressure 142/79 H 139/93 H Pulse Oximetry 98 96 Oxygen Delivery Room Air 06/13/23 04:00 06/13/23 08:10 06/13/23 14:00 Temperature 98.1 F 97.3 F L Pulse Rate 80 82 Respiratory Rate 14 16 Blood Pressure 126/75 112/62 Pulse Oximetry 97 96 Oxygen Delivery Room Air Intake/Output Intake/Output: Intake & Output 06/10/23 06/11/23 06/12/2324 23:59 23:59 23:59 23:59 Intake Total 1058.3 1628.3 Output Total 600 Balance 1058.3 1028.3 Meds/Results Medications: Active Medications Generic Name Dose Route Start Last Admin Trade Name Freq PRN Reason Stop Dose Admin Acetaminophen 650 mg 06/13/23 01:13 06/13/23 11:21 Acetaminophen 325 Mg Tablet PO 650 mg Q4H PRN Administration Mild Pain (1-3) or Fever Hydromorphone HCl 1 mg 06/13/23 09:19 06/13/23 14:34 Hydromorphone Hcl Inj (*Crx) 1 Mg/Ml Syr IV PUSH 1 mg Q3H PRN Administration Pain Rated 7-10 Metronidazole 500 mg in 100 mls @ 100 mls/hr 06/12/23 08:00 06/13/23 13:56 Flagyl 500 Mg/Iso Soln 100 Ml IVPB 100 mls/hr Q8HR KSENIA Administration Ceftriaxone Sodium 2 gm in 100 mls @ 200 mls/hr 06/13/23 09:00 06/13/23 08:47 Rocephin 2 Gm/Ns 100 Ml IVPB Infused Q24H KSENIA Infusion Lactated Ringer's 1,000 mls @ 100 mls/hr 06/12/23 07:45 06/13/23 13:56 Lr - Lactated Ringers Iv IV CONT Not Given .Q10H KSENIA Ondansetron HCl 4 mg 06/12/23 07:41 06/13/23 11:20 Ondansetron Inj 4 Mg/2 Ml Vial IV PUSH 4 mg Q6H PRN Administration Nausea And Vomiting Radiology Results: ITS Impressions Abdomen/Pelvis CT 06/12/23 06:02 IMPRESSION: 1. 3 mm stone in the common duct. No duct dilatation. 2. Cholelithiasis. Gallbladder distention may be secondary to fasting or acute cholecystitis. Upper Quadrant Ultrasound 06/12/23 07:40 IMPRESSION: 1. Cholelithiasis. No evidence of acute cholecystitis. 2. Diffuse hepatic steatosis. Labs Labs: Laboratory Results - last 24 hr 06/13/23 05:19 WBC 10.2 H RBC 5.66 H Hgb 14.3 Hct 46.9 MCV 82.9 MCH 25.3 L MCHC 30.5 L RDW 14.6 H Plt
--- NOTE | 2023-06-13 18:25 | P.PNAN_ITS ---
Anes - Prog Note Post-Op Date/Time: 06/13/23 18:25 Cardiovascular status: normal Respiratory status: normal Airway patency: baseline Mental status: baseline Post-Op hydration status: normal Vital Signs: Last Vital Signs Temp 36.3 C L 06/13/23 14:00 Pulse 82 06/13/23 14:00 Resp 16 06/13/23 14:00 BP 112/62 06/13/23 14:00 Pulse Ox 96 06/13/23 14:00 O2 Del Method Room Air 06/13/23 08:10 O2 Flow Rate 6 06/12/23 16:05 Pain Score (VAS): 0 I/O: Intake & Output 06/13/23 06/13/23 06/13/23 07:59 15:59 23:59 Intake Total 1168.3 460 480 Output Total 600 Balance 568.3 460 480 Laboratory Tests 06/13/23 05:19 06/13/23 05:19 06/13/23 05:19 WBC 10.2 H RBC 5.66 H Hgb 14.3 Hct 46.9 MCV 82.9 MCH 25.3 L MCHC 30.5 L RDW 14.6 H Plt Count 349 MPV 10.6 H Immature Gran % (Auto) 0.5 Neut % (Auto) 78.4 H Lymph % (Auto) 7.8 L [place] % (Auto) 13.0 H Eos % (Auto) 0.2 Baso % (Auto) 0.1 L Lymph # (Auto) 0.80 L [place] # (Auto) 1.3 H Eos # (Auto) 0.0 Baso # (Auto) 0.0 Abs Immat Gran (auto) 0.05 H Absolute Neuts (auto) 8.0 H Absolute Nucleated RBC 0.000 Nucleated RBC % 0.0 % Immature Plt Fraction 4.8 Sodium 137 Potassium 4.3 Chloride 107 Carbon Dioxide 24 Anion Gap 6 BUN 15 Creatinine 0.50 L Estim Creat Clear Calc 153 Estimated GFR > 60 Glucose 126 H Calcium 8.8 Total Bilirubin 2.4 H AST 753 H ALT 837 H Alkaline Phosphatase 183 H Total Protein 7.0 Albumin 4.0 Lipase 94894 H Post-procedural complaints: none Patient Feedback: Patient satisfied with anesthetic care.
[2023-06-13] MEDS: KETOROLAC 30 MG/ML VIAL (*BKC) IV PUSH (20:33)
[2023-06-13 22:00] VITALS: BP 134/80; PULSE 104; RESP 17; TEMP 37.2; O2SAT 93
[2023-06-13 22:22] VITALS: PULSE 100; RESP 17; O2SAT 92
[2023-06-14] VITALS (8 sets, daily range): BP systolic 127–139; BP diastolic 83–91; PULSE 112–123; RESP 16–22; TEMP 36.5–37.2; O2SAT 91–98
[2023-06-14] MEDS: HYDROmorphone HCL INJ (*CRX) 1 MG/ML SYR IV PUSH ×7 (00:47→23:43)
[2023-06-14] MEDS: metroNIDAZOLE 500 MG/ISO 100ML 500 MG/100 ML BAG 100 MG IVPB ×3 (04:32→20:34)
[2023-06-14] MEDS: ONDANSETRON INJ 4 MG/2 ML VIAL IV PUSH ×2 (04:32→23:42)
[2023-06-14] MEDS: LACTATED RINGERS 1,000 ML 100 ML IV CONT ×2 (04:33→20:33)
[2023-06-14 06:21] LABS: Basophils Absolute Auto 0.1 K/mm3 (0.0-0.1); Basophils Percent Auto 0.4 % (0.2-1.2); Eosinophils Percent Auto 0.1 % (0-4.4); Hematocrit 47.6 % (37.0-47.0); Hemoglobin 13.9 g/dL (12.0-15.0); Immature Granulocyte Absolute 0.13 K/mm3 (0.00-0.031); Immature Granulocyte Percent A 0.7 % (0-0.5); Lymphocytes Percent Auto 5.6 % (18.3-44.2); Mean Corpuscular HGB Conc 29.2 g/dl (32-36); Mean Corpuscular Hemoglobin 25.7 pg (26-34); Mean Platelet Volume 10.1 fl (7.4-10.4); Monocytes Absolute Auto 1.7 K/mm3 (0.1-0.6); Monocytes Percent Auto 8.8 % (2.6-8.5); Neutrophils Absolute Auto 16.6 K/mm3 (1.3-6.7); Neutrophils Percent Auto 84.4 % (45.5-73.1); Platelet Count Result 372 k/mm3 (150-375); Red Blood Count 5.41 M/mm3 (4.2-5.4); Red Cell Distribution Width 15.3 % (11.5-14.5); White Blood Count 19.7 K/mm3 (4.5-10.0)
[2023-06-14 06:37] LABS: Alanine Aminotransferase 562 U/L (6-35); Albumin Level 3.6 g/dL (3.5-5.1); Alkaline Phosphatase 163 U/L (38-126); Anion Gap 8 mmol/L (4-12); Aspartate Amino Transferase 257 U/L (14-36); Blood Urea Nitrogen 19 mg/dL (7-17); Carbon Dioxide 22 mmol/L (22-30); Chloride 105 mmol/L (98-107); Estimated CRCL calculation 153 ml/min; Estimated Glomerular Filt Rate > 60; Glucose 96 mg/dL (65-110); Potassium 3.6 mmol/L (3.4-5.0); Sodium 135 mmol/L (137-145)
[2023-06-14 06:53] LABS: Lipase 9014 U/L (23-300)
[2023-06-14 07:13] LABS: Platelet Estimate Adequate (Adequate)
[2023-06-14 07:15] LABS: Schistocytes None Seen
[2023-06-14] MEDS: cefTRIAXone 2 GM/NS 100 ML 2 GM/100 ML BAG IVPB (08:26)
--- NOTE | 2023-06-14 09:26 | WPDPN ---
Progress Note: A&P Assessment and Plan (1) Post-ERCP acute pancreatitis: Code(s): K91.89 - Other postprocedural complications and disorders of digestive system; K85.90 - Acute pancreatitis without necrosis or infection, unspecified Status: Acute Assessment and Plan: Lipase was 16,600 yesterday. Now decreased down to 9000. Clinically she still has moderate pain in the epigastric region which is improved from yesterday. Continue supportive management. Continue to follow enzymes. (2) Choledocholithiasis: Code(s): K80.50 - Calculus of bile duct without cholangitis or cholecystitis without obstruction Status: Acute Assessment and Plan: Likely passed common bile duct stone prior to ERCP. MRCP done yesterday and reading is pending. Unlikely that she has retained common bile duct stone after ERCP and sphincterotomy. (3) Cholelithiasis: Code(s): K80.20 - Calculus of gallbladder without cholecystitis without obstruction Status: Acute Assessment and Plan: Patient still has cholelithiasis. Will plan on laparoscopic cholecystectomy possible open cholecystectomy during this admission prior to discharge home. However she needs to improve from her acute post ERCP pancreatitis before proceeding with gallbladder surgery. Repeat labs tomorrow. Okay to have clear liquids today. Subjective Date/time seen: 06/14/23 09:26 Interval history: Patient is still having moderate epigastric abdominal pain. Like to have some water. No emesis or nausea right now. Appears she did develop post ERCP pancreatitis. Lipase yesterday was 16,600. Today it is dropped down to 9000. Liver enzymes are also decreasing but still mildly elevated. White blood cell count did decrease in 10,000 up to 19,000 but that is likely reactive. Exam GI: Other: Abdomen is mildly distended but soft. [id number] tenderness to palpation epigastric region abdomen over the pancreas. No generalized peritoneal signs. Objective Data Vital Signs Vital Signs: Vital Signs - 24 hr 06/13/23 14:00 06/13/23 20:00 06/13/23 22:00 Temperature 36.3 C L 37.2 C Pulse Rate 82 104 H Respiratory Rate 16 17 Blood Pressure 112/62 134/80 Pulse Oximetry 96 93 Oxygen Delivery Room Air Fraction of Inspired Oxygen 06/13/23 22:22 06/14/23 06:00 06/14/23 08:05 Temperature 37.0 C Pulse Rate 100 119 H 116 H Respiratory Rate 17 17 20 Blood Pressure 127/86 Pulse Oximetry 92 91 92 Oxygen Delivery Room Air Room Air Fraction of Inspired Oxygen 21 21 Intake/Output Intake/Output: Intake & Output 06/11/23 06/12/23 06/13/23 06/14/23 23:59 23:59 23:59 23:59 Intake Total 1058.3 3236.7 1195.0 Output Total 600 Balance 1058.3 2636.7 1195.0 Meds/Results Medications: Active Medications Generic Name Dose Route Start Last Admin Trade Name Freq PRN Reason Stop Dose Admin Acetaminophen 650 mg 06/13/23 01:13 06/13/23 17:07 Acetaminophen 325 Mg Tablet PO 650 mg Q4H PRN Administration Mild Pain (1-3) or Fever Hydromorphone HCl 1 mg 06/13/23 19:50 06/14/23 08:27 Hydromorphone Hcl Inj (*Crx) 1 Mg/Ml Syr IV PUSH 1 mg Q2H PRN Administration Pain Rated 7-10 Metronidazole 500 mg in 100 mls @ 100 mls/hr 06/12/23 08:00 06/14/23 04:38 Flagyl 500 Mg/Iso Soln 100 Ml IVPB 100 mls/hr Q8HR KSENIA Infusion Ceftriaxone Sodium 2 gm in 100 mls @ 200 mls/hr 06/13/23 09:00 06/14/23 08:26 Rocephin 2 Gm/Ns 100 Ml IVPB 200 mls/hr Q24H KSENIA Administration Lactated Ringer's 1,000 mls @ 100 mls/hr 06/12/23 07:45 06/14/23 04:34 Lr - Lactated Ringers Iv IV CONT 0 mls/hr .Q10H KSENIA Infusion Ondansetron HCl 4 mg 06/12/23 07:41 06/14/23 04:32 Ondansetron Inj 4 Mg/2 Ml Vial IV PUSH 4 mg Q6H PRN Administration Nausea And Vomiting Radiology Results: ITS Impressions Abdomen/Pelvis CT 06/12/23 06:02 IMPRESSION: 1. 3 mm stone in the common duct. No du
[2023-06-14] MEDS: PANTOPRAZOLE SODIUM IV 40 MG VIAL IV PUSH (13:05)
[2023-06-14] MEDS: ACETAMINOPHEN 325 MG TABLET 650 MG PO (13:17)
--- NOTE | 2023-06-14 15:16 | PM.IMPN ---
Progress Note: A&P Assessment and Plan (1) Acute cholecystitis due to biliary calculus: Code(s): K80.00 - Calculus of gallbladder with acute cholecystitis without obstruction Status: Acute Assessment and Plan: Continue bowel rest Continue IVF Continue analgesics Continue ceftriaxone Plan is to proceed with lap jessica after pancreatitis subsides if MCRP is negative for choledocholithiasis (2) Choledocholithiasis with acute cholecystitis: Code(s): K80.42 - Calculus of bile duct with acute cholecystitis without obstruction Status: Acute Assessment and Plan: MRCP /6 results pending (3) Post-ERCP acute pancreatitis: Code(s): K91.89 - Other postprocedural complications and disorders of digestive system; K85.90 - Acute pancreatitis without necrosis or infection, unspecified Status: Acute Assessment and Plan: Continue supportive care Subjective Date/time seen: 06/14/23 15:16 Interval history: Epigastric pain after clear liquids for lunch. Sedated with hydromorphone, but comfortable. Review of Systems Review of Systems: ROS unobtainable: Yes unobtainable due to medical condition Exam Narrative: NECK: No JVD CHEST: Clear to auscultation. Normal effort. HEART: NL S1/S2, regular, no murmur ABDOMEN: BS+, soft, TENDER EPIGASTRIUM, no mass, no bruits EXTREMITIES: No cyanosis, edema, or clubbing NEUROLOGIC: CN intact and symmetric to inspection. MUSCULOSKELETAL: Tone and strength symmetric. PSYCH: Sleeping. Objective Data Vital Signs Vital Signs: Vital Signs - 24 hr 06/13/23 20:00 06/13/23 22:00 06/13/23 22:22 Temperature 99 F Pulse Rate 104 H 100 Respiratory Rate 17 17 Blood Pressure 134/80 Pulse Oximetry 93 92 Oxygen Delivery Room Air Room Air Fraction of Inspired Oxygen 21 06/14/23 06:00 06/14/23 08:05 06/14/23 08:25 Temperature 98.6 F Pulse Rate 119 H 116 H Respiratory Rate 17 20 Blood Pressure 127/86 Pulse Oximetry 91 92 Oxygen Delivery Room Air Room Air Fraction of Inspired Oxygen 06/14/23 13:16 06/14/23 14:00 Temperature 98.9 F 97.7 F Pulse Rate 123 H Respiratory Rate 22 H Blood Pressure 128/83 Pulse Oximetry 91 Oxygen Delivery Fraction of Inspired Oxygen Intake/Output Intake/Output: Intake & Output 06/11/23 06/12/23 06/13/23 06/14/23 23:59 23:59 23:59 23:59 Intake Total 1058.3 3236.7 1409.7 Output Total 600 Balance 1058.3 2636.7 1409.7 Meds/Results Medications: Active Medications Generic Name Dose Route Start Last Admin Trade Name Freq PRN Reason Stop Dose Admin Acetaminophen 650 mg 06/13/23 01:13 06/14/23 13:17 Acetaminophen 325 Mg Tablet PO 650 mg Q4H PRN Administration Mild Pain (1-3) or Fever Hydromorphone HCl 1 mg 06/13/23 19:50 06/14/23 14:40 Hydromorphone Hcl Inj (*Crx) 1 Mg/Ml Syr IV PUSH 1 mg Q2H PRN Administration Pain Rated 7-10 Metronidazole 500 mg in 100 mls @ 100 mls/hr 06/12/23 08:00 06/14/23 13:05 Flagyl 500 Mg/Iso Soln 100 Ml IVPB 100 mls/hr Q8HR KSENIA Administration Ceftriaxone Sodium 2 gm in 100 mls @ 200 mls/hr 06/13/23 09:00 06/14/23 08:26 Rocephin 2 Gm/Ns 100 Ml IVPB 200 mls/hr Q24H KSENIA Administration Lactated Ringer's 1,000 mls @ 100 mls/hr 06/12/23 07:45 06/14/23 04:34 Lr - Lactated Ringers Iv IV CONT 0 mls/hr .Q10H KSENIA Infusion Ondansetron HCl 4 mg 06/12/23 07:41 06/14/23 04:32 Ondansetron Inj 4 Mg/2 Ml Vial IV PUSH 4 mg Q6H PRN Administration Nausea And Vomiting Pantoprazole Sodium 40 mg 06/14/23 09:35 06/14/23 13:05 Pantoprazole Sodium Iv 40 Mg Vial IV PUSH 40 mg QAM KSENIA Administration Radiology Results: ITS Impressions Abdomen/Pelvis CT 06/12/23 06:02 IMPRESSION: 1. 3 mm stone in the common duct. No duct dilatation. 2. Cholelithiasis. Gallbladder distention may be secondary to fasting or acute cholecystitis. Upper Quadrant U
[2023-06-14] MEDS: SENNOSIDES 8.6 MG TABLET 17.2 MG PO (20:33)
[2023-06-14] MEDS: LABETALOL HCL 100 MG TABLET PO (20:34)
[2023-06-15] VITALS (13 sets, daily range): BP systolic 131–144; BP diastolic 74–93; PULSE 85–110; RESP 16–18; TEMP 36.5–37.8; O2SAT 93–97
[2023-06-15] MEDS: HYDROmorphone HCL INJ (*CRX) 1 MG/ML SYR IV PUSH ×5 (02:14→18:47)
[2023-06-15] MEDS: BISACODYL 10 MG SUPPOSITORY RECTAL (05:06)
[2023-06-15] MEDS: ONDANSETRON INJ 4 MG/2 ML VIAL IV PUSH ×3 (05:06→21:28)
[2023-06-15] MEDS: metroNIDAZOLE 500 MG/ISO 100ML 500 MG/100 ML BAG 100 MG IVPB ×3 (05:07→20:25)
[2023-06-15 06:22] LABS: Basophils Absolute Auto 0.1 K/mm3 (0.0-0.1); Basophils Percent Auto 0.3 % (0.2-1.2); Eosinophils Percent Auto 0.1 % (0-4.4); Hematocrit 43.2 % (37.0-47.0); Immature Granulocyte Absolute 0.15 K/mm3 (0.00-0.031); Immature Granulocyte Percent A 0.7 % (0-0.5); Lymphocytes Absolute Auto 0.97 K/mm3 (0.9-3.2); Lymphocytes Percent Auto 4.8 % (18.3-44.2); Mean Corpuscular HGB Conc 30.1 g/dl (32-36); Mean Corpuscular Hemoglobin 25.2 pg (26-34); Mean Corpuscular Volume 83.9 fl (80-100); Monocytes Absolute Auto 1.9 K/mm3 (0.1-0.6); Monocytes Percent Auto 9.3 % (2.6-8.5); Neutrophils Percent Auto 84.8 % (45.5-73.1); Platelet Count Result 314 k/mm3 (150-375); Red Blood Count 5.15 M/mm3 (4.2-5.4); Red Cell Distribution Width 15.3 % (11.5-14.5); White Blood Count 20.1 K/mm3 (4.5-10.0)
[2023-06-15 07:44] LABS: Lipase 4123 U/L (23-300)
[2023-06-15 07:53] LABS: Alanine Aminotransferase 277 U/L (6-35); Albumin Level 3.2 g/dL (3.5-5.1); Alkaline Phosphatase 111 U/L (38-126); Anion Gap 5 mmol/L (4-12); Aspartate Amino Transferase 98 U/L (14-36); Bilirubin,Total 0.8 mg/dL (0.2-1.3); Blood Urea Nitrogen 18 mg/dL (7-17); Calcium 4.7 mg/dL (8.4-10.2); Carbon Dioxide 25 mmol/L (22-30); Chloride 100 mmol/L (98-107); Estimated CRCL calculation 153 ml/min; Estimated Glomerular Filt Rate > 60; Glucose 137 mg/dL (65-110); Potassium 3.4 mmol/L (3.4-5.0); Sodium 130 mmol/L (137-145)
[2023-06-15] MEDS: LABETALOL HCL 100 MG TABLET PO ×2 (08:27→20:22)
[2023-06-15] MEDS: PANTOPRAZOLE SODIUM IV 40 MG VIAL IV PUSH (08:30)
[2023-06-15] MEDS: cefTRIAXone 2 GM/NS 100 ML 2 GM/100 ML BAG IVPB (08:31)
--- NOTE | 2023-06-15 10:44 | PM.PNGS ---
Progress Note: A&P Assessment and Plan (1) Acute thrombosis of inferior vena cava: Code(s): I82.220 - Acute embolism and thrombosis of inferior vena cava Status: Acute Assessment and Plan: Acute thrombus in the right hepatic vein and inferior vena cava found on MRCP. Likely secondary to the pancreatitis. Patient needs to be anticoagulated. Discussed with the Hospitalist who is going to start her on a Heparin drip. 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 (3) Post-ERCP acute pancreatitis: Code(s): K91.89 - Other postprocedural complications and disorders of digestive system; K85.90 - Acute pancreatitis without necrosis or infection, unspecified Status: Acute Assessment and Plan: Lipase trending down to 4,000 today. Abdominal pain slightly improved today as well. Continue medical management. Tolerating clear liquids. Trend labs. (4) Choledocholithiasis: Code(s): K80.50 - Calculus of bile duct without cholangitis or cholecystitis without obstruction Status: Acute Assessment and Plan: Likely passed common bile duct stone prior to ERCP. MRCP showed acute interstitial pancreatitis and cholelithiasis, as well as thrombus of the right hepatic vein and inferior vena cava. Discussed with the patient that due to the acute thrombus, she will need to be anticoagulated and this will postpone plans for surgery. (5) Cholelithiasis: Code(s): K80.20 - Calculus of gallbladder without cholecystitis without obstruction Status: Acute Assessment and Plan: She still has gallstones and will eventually need a cholecystectomy. Will hold off on surgery for now given the new findings of the thrombus in the right hepatic vein and IVC. She needs to be anticoagulated now and we can decide timing of interval cholecystectomy after she is treated for the thrombus. Plan I have discussed the patient's case and plan of care with Dr. Murphy. Subjective Subjective Date/Time Seen: 06/15/23 10:44 Patient reports: no new complaints, tolerating liquids well, flatus, no bowel movement (since of last week) and nausea (intermittent and mild) Interval history: This is a 32 year old woman who presented with CT findings of a common duct stone and cholelithiasis. LFTs were elevated on admission with bilirubin 2.4. She had an ERCP and developed post-ERCP pancreatitis. Lipase and LFTs have been trending down. MRCP ordered two days ago and was read today showing thrombus in right hepatic vein and inferior vena cava. Chart reviewed. Patient seen on the medical floor. She reports some mild improvement in her abdominal pain since yesterday. She feels it is not constant and is coming more in waves, but is still requiring IV Dilaudid every couple of hours through the night. She has had some intermittent nausea, but no vomiting last night or this morning. She had a suppository this am as she has not had a BM since last . Review of Systems Review of Systems: All systems reviewed & are unremarkable except as noted in HPI and below Exam Const: General: uncomfortable Nutritional Appearance: obese Orientation/consciousness: patient oriented x3 GI: Other: Abdomen is distended with very hypoactive bowel sounds. She has guarding and feels firm across her upper abdomen but soft in the lower abdomen. She has mild diffuse tenderness throughout her entire abdomen with moderate tenderness across the upper abdomen. Objective Data Vital Signs Vital Signs: Vital Signs - 24 hr 06/14/23 13:16 06/14/23 14:00 06/14/23 18:58 Temperature 98.9 F 97.7 F Pulse Rate 123 H 112 H Respiratory Rate 22 H Blood Pressure 128/83 Pulse Oximetry 91 97 Oxygen Delivery Oxygen Flow Rate 06/14/23 20:30 06/14/23 20:34 06/14/23 20:00 Temperature Pulse Rate 119 H Respiratory Rate Blood Pressure
[2023-06-15 11:41] LABS: Basophils Percent Auto 0.2 % (0.2-1.2); Eosinophils Percent Auto 0.1 % (0-4.4); Hematocrit 40.4 % (37.0-47.0); Hemoglobin 12.7 g/dL (12.0-15.0); Immature Granulocyte Absolute 0.16 K/mm3 (0.00-0.031); Immature Granulocyte Percent A 0.8 % (0-0.5); Lymphocytes Absolute Auto 0.86 K/mm3 (0.9-3.2); Lymphocytes Percent Auto 4.4 % (18.3-44.2); Mean Corpuscular HGB Conc 31.4 g/dl (32-36); Mean Corpuscular Hemoglobin 25.9 pg (26-34); Mean Corpuscular Volume 82.4 fl (80-100); Mean Platelet Volume 10.3 fl (7.4-10.4); Monocytes Absolute Auto 1.5 K/mm3 (0.1-0.6); Monocytes Percent Auto 7.6 % (2.6-8.5); Neutrophils Absolute Auto 16.9 K/mm3 (1.3-6.7); Neutrophils Percent Auto 86.9 % (45.5-73.1); Platelet Count Result 292 k/mm3 (150-375); Red Cell Distribution Width 15.4 % (11.5-14.5); White Blood Count 19.5 K/mm3 (4.5-10.0)
[2023-06-15 11:46] LABS: INR 1.3; Partial Thromboplastin Time 32.7 Seconds (22.3-36.8); Prothrombin Time 16.4 Seconds (11.1-14.7)
[2023-06-15] MEDS: HEPARIN SOD/D5W 100 UNITS/ML 25,000 UNITS/250 ML BAG 13 UNITS IV CONT (11:58)
[2023-06-15] MEDS: HEPARIN SODIUM 5,000 UNITS/ML VIAL 6000 UNITS IV PUSH (12:00)
[2023-06-15] MEDS: CALCIUM GLUC 1,000 MG/NS 50 ML 1,000 MG/50 ML BAG 100 MG IVPB (13:07)
[2023-06-15] MEDS: ACETAMINOPHEN 325 MG TABLET 650 MG PO ×2 (13:55→17:41)
--- NOTE | 2023-06-15 16:13 | WPDGIPROGNO ---
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 Status: Acute Assessment and Plan: new finding by MRCP start heparin gtt then probably transition to eliquis (2) Acute thrombosis of inferior vena cava: Code(s): I82.220 - Acute embolism and thrombosis of inferior vena cava Status: Acute (3) Post-ERCP acute pancreatitis: Code(s): K91.89 - Other postprocedural complications and disorders of digestive system; K85.90 - Acute pancreatitis without necrosis or infection, unspecified Status: Acute Assessment and Plan: pain and nausea better, lft and lipase trending down tolerating liquid diet (4) Choledocholithiasis: Code(s): K80.50 - Calculus of bile duct without cholangitis or cholecystitis without obstruction Status: Acute Assessment and Plan: s/p ercp with sphincterotomy (stone had already passed), MRCP after ERCP no bile duct stone (5) RUQ pain: Code(s): R10.11 - Right upper quadrant pain Status: Acute Subjective Date/time seen: 06/15/23 16:13 Interval history: less nausea and abdominal pain improved but MRCP noted clot in right hepatic vein and inferior vena cava. Review of Systems Review of Systems: All systems reviewed & are unremarkable except as noted in HPI and below Exam Const: General: No in distress HENMT: Face/Nose/Sinus: Normal nares present Eyes: Sclera: sclerae normal Neck: Neck: supple Resp: Effort & Inspection: normal respiratory effort Cardio: Rate: regular rate GI: Inspection: distended GI Palp: Yes Tenderness to palpation present (GI) (epigastric, no rebound) Auscultation: abnormal bowel sounds (hypoactive) Skin: General skin exam: normal color Neuro: Speech: normal speech Motor exam (neuro): 5/5 motor strength present throughout Extrem: General: pedal edema Psych: Mental Status: mental status grossly normal Objective Data Vital Signs Vital Signs: Vital Signs - 24 hr 06/14/23 18:58 06/14/23 20:30 06/14/23 20:34 Temperature Pulse Rate 112 H 119 H Respiratory Rate Blood Pressure Pulse Oximetry 97 97 Oxygen Delivery Nasal Cannula Oxygen Flow Rate 2 06/14/23 20:00 06/14/23 22:00 06/15/23 06:00 Temperature 98.5 F 98.2 F Pulse Rate 114 H 108 H Respiratory Rate 16 16 Blood Pressure 139/91 H 134/93 H Pulse Oximetry 98 96 Oxygen Delivery Room Air Oxygen Flow Rate 06/15/23 08:27 06/15/23 08:36 06/15/23 08:00 Temperature Pulse Rate 110 H 105 H 108 H Respiratory Rate Blood Pressure 144/86 H Pulse Oximetry 94 95 Oxygen Delivery Nasal Cannula Oxygen Flow Rate 1 06/15/23 10:58 06/15/23 11:29 06/15/23 11:30 Temperature Pulse Rate Respiratory Rate Blood Pressure Pulse Oximetry 97 93 94 Oxygen Delivery Nasal Cannula Room Air Room Air Oxygen Flow Rate 1 06/15/23 13:55 06/15/23 14:00 06/15/23 14:55 Temperature 100.1 F H 100.1 F H 99.8 F H Pulse Rate 109 H Respiratory Rate 16 Blood Pressure 131/74 Pulse Oximetry 94 Oxygen Delivery Oxygen Flow Rate Intake/Output Intake/Output: Intake & Output 06/12/23 06/13/23 06/14/23 06/15/23 23:59 23:59 23:59 23:59 Intake Total 1058.3 3236.7 4343.7 1918.3 Output Total 600 Balance 1058.3 2636.7 4343.7 1918.3 Meds/Results Medications: Active Medications Generic Name Dose Route Start Last Admin Trade Name Freq PRN Reason Stop Dose Admin Acetaminophen 650 mg 06/13/23 01:13 06/15/23 13:55 Acetaminophen 325 Mg Tablet PO 650 mg Q4H PRN Administration Mild Pain (1-3) or Fever Bisacodyl 10 mg 06/14/23 16:01 06/15/23 05:06 Bisacodyl 10 Mg Suppository RECTAL 10 mg QAM PRN Administration Constipation Heparin Sodium (Porcine) 6,000 units 06/15/23 10:58 Heparin Sodium 5,000 Units/Ml Vial IV PUSH PRN PRN aPTT less than 55 seconds Heparin Sodium (Porcin
[2023-06-15] MEDS: LIDOCAINE 5% PATCH 1 PATCH TRANSDERM (18:36)
[2023-06-15 20:19] LABS: Partial Thromboplastin Time 65.4 Seconds (22.3-36.8)
[2023-06-15] MEDS: SENNOSIDES 8.6 MG TABLET 17.2 MG PO (20:23)
--- NOTE | 2023-06-15 20:46 | PM.IMPN ---
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 Status: Acute (3) Post-ERCP acute pancreatitis: Code(s): K91.89 - Other postprocedural complications and disorders of digestive system; K85.90 - Acute pancreatitis without necrosis or infection, unspecified Status: Acute (4) Choledocholithiasis: Code(s): K80.50 - Calculus of bile duct without cholangitis or cholecystitis without obstruction Status: Acute (5) Cholelithiasis: Code(s): K80.20 - Calculus of gallbladder without cholecystitis without obstruction Status: Acute (6) Hypocalcemia: Code(s): E83.51 - Hypocalcemia Status: Acute Plan #choledocholithiasis -on original imaging appeared to have choledocholithasis, on ERCP no stone was found, possibly stone passed on its own -will need cholecystectomy, surgery consulted. waiting for pancrease numbers to improve, now with hepatic thrombus we may further delay surgery -ABx: rocephin, flagyl -GI ppx: protonix #Post-ERCP pancreatitis -downtrending enzympes, lipase down to 4k -will try lidocaine patch for her back pain, but it may just be referred pancreatic pain #Right hepatic vein thrombus -DVT in right hepativ vein into IVC, seen on MRCP -starting heparin drip, surgery ok with anticoagulation #chronic conditions -sinus tachycardia: continue home labetolol Diet: clear liquid diet -> full liquid tomorrow AM DVT ppx: heparin gtt Code status: Full code Disposition: pending clinical course, likely home in > 3 days Subjective Date/time seen: 06/15/23 20:46 Interval history: Patient seen and examined. She has a new complaint of neuropathy. She was found to have hypocalcemia Ca 5.3 when adjusted for albumin. We did give a dose of calcium. MRCP shows DVT in hepatic vein into IVC, started heparin drip. Surgery for cholecystectomy is being defered. Labs are continuing to otherwise improve, lipase down to 4k. Family updated bedside. She has been reassured but she is very nervous of all the diagnoses. Epigastric pain present Review of Systems Review of Systems: 10 point ROS complete, negative other than what is specified in HPI. Exam Narrative: - GENERAL: Pleasant woman in no acute distress. Well-nourished. - EYES: EOMI. Anicteric. - HENT: Moist mucous membranes. - LUNGS: Clear to auscultation bilaterally, no wheezing, rhonchi, or rales. - CARDIOVASCULAR: Regular rate and rhythm. No murmur. No JVD. - ABDOMEN: Soft, tender in epigastric region on palpation. - EXTREMITIES: No edema. Peripheral pulses 2+. Non-tender. - NEUROLOGIC: No focal neurological deficits. CN II-XII grossly intact. sensation intact but she complains of neuropathy - PSYCHIATRIC: Awake, Alert and oriented x 3. Appropriate mood and affect. - SKIN: No rashes or lesions. Warm. - LYMPH: No cervical lymphadenopathy. Objective Data Vital Signs Vital Signs: Vital Signs - 24 hr 06/14/23 22:00 06/15/23 06:00 06/15/23 08:27 Temperature 36.9 C 36.8 C Pulse Rate 114 H 108 H 110 H Respiratory Rate 16 16 Blood Pressure 139/91 H 134/93 H Pulse Oximetry 98 96 Oxygen Delivery Oxygen Flow Rate 06/15/23 08:36 06/15/23 08:00 06/15/23 10:58 Temperature Pulse Rate 105 H 108 H Respiratory Rate Blood Pressure 144/86 H Pulse Oximetry 94 95 97 Oxygen Delivery Nasal Cannula Nasal Cannula Oxygen Flow Rate 1 1 06/15/23 11:29 06/15/23 11:30 06/15/23 13:55 Temperature 37.8 C H Pulse Rate Respiratory Rate Blood Pressure Pulse Oximetry 93 94 Oxygen Delivery Room Air Room Air Oxygen Flow Rate 06/15/23 14:00 06/15/23 14:55 06/15/23 17:42 Temperature 37.8 C H 37.7 C H 36.7 C Pulse Rate 109 H Respiratory Rate 16 Blood Pressure 131/74 Pulse Oximetry 94
[2023-06-15] MEDS: traMADol HCL (*CRX) 50 MG TABLET PO (21:26)
[2023-06-15] MEDS: HEPARIN SOD/D5W 100 UNITS/ML 25,000 UNITS/250 ML BAG 14 UNITS IV CONT (21:55)
[2023-06-15] MEDS: HEPARIN SODIUM 5,000 UNITS/ML VIAL 3000 UNITS IV PUSH (21:55)
[2023-06-15] MEDS: HYDROmorphone HCL INJ (*CRX) 1 MG/ML SYR 0.5 MG IV PUSH (22:54)
[2023-06-16] MEDS: HYDROmorphone HCL INJ (*CRX) 1 MG/ML SYR IV PUSH (01:28)
[2023-06-16 04:23] LABS: Basophils Absolute Auto 0.1 K/mm3 (0.0-0.1); Basophils Percent Auto 0.3 % (0.2-1.2); Eosinophils Absolute Auto 0.1 K/mm3 (0-0.3); Eosinophils Percent Auto 0.5 % (0-4.4); Hematocrit 37.5 % (37.0-47.0); Hemoglobin 11.5 g/dL (12.0-15.0); Immature Granulocyte Absolute 0.15 K/mm3 (0.00-0.031); Immature Granulocyte Percent A 0.9 % (0-0.5); Lymphocytes Percent Auto 7.5 % (18.3-44.2); Mean Corpuscular HGB Conc 30.7 g/dl (32-36); Mean Corpuscular Hemoglobin 25.7 pg (26-34); Mean Corpuscular Volume 83.7 fl (80-100); Mean Platelet Volume 10.1 fl (7.4-10.4); Monocytes Absolute Auto 1.4 K/mm3 (0.1-0.6); Monocytes Percent Auto 8.8 % (2.6-8.5); Neutrophils Absolute Auto 13.1 K/mm3 (1.3-6.7); Platelet Count Result 271 k/mm3 (150-375); Red Blood Count 4.48 M/mm3 (4.2-5.4); Red Cell Distribution Width 15.4 % (11.5-14.5)
[2023-06-16 04:32] LABS: Alanine Aminotransferase 181 U/L (6-35); Albumin Level 3.2 g/dL (3.5-5.1); Alkaline Phosphatase 84 U/L (38-126); Anion Gap 6 mmol/L (4-12); Aspartate Amino Transferase 63 U/L (14-36); Bilirubin,Total 0.6 mg/dL (0.2-1.3); Blood Urea Nitrogen 13 mg/dL (7-17); Calcium 4.5 mg/dL (8.4-10.2); Carbon Dioxide 25 mmol/L (22-30); Chloride 98 mmol/L (98-107); Estimated CRCL calculation 186 ml/min; Estimated Glomerular Filt Rate > 60; Glucose 114 mg/dL (65-110); Lipase 723 U/L (23-300); Potassium 3.2 mmol/L (3.4-5.0); Sodium 129 mmol/L (137-145)
[2023-06-16 04:37] LABS: Partial Thromboplastin Time 62.8 Seconds (22.3-36.8)
[2023-06-16 05:15] VITALS: BP 129/76; PULSE 98; RESP 18; TEMP 36.3; O2SAT 92
[2023-06-16] MEDS: HYDROmorphone HCL INJ (*CRX) 1 MG/ML SYR 0.5 MG IV PUSH ×4 (05:24→16:02)
[2023-06-16] MEDS: HEPARIN SODIUM 5,000 UNITS/ML VIAL 3000 UNITS IV PUSH (05:25)
[2023-06-16] MEDS: HEPARIN SOD/D5W 100 UNITS/ML 25,000 UNITS/250 ML BAG 15 UNITS IV CONT (05:26)
[2023-06-16] MEDS: ONDANSETRON INJ 4 MG/2 ML VIAL IV PUSH ×3 (05:31→18:08)
[2023-06-16] MEDS: metroNIDAZOLE 500 MG/ISO 100ML 500 MG/100 ML BAG 100 MG IVPB (05:33)
[2023-06-16 08:00] VITALS: PULSE 98; RESP 18; O2SAT 93
[2023-06-16] MEDS: LABETALOL HCL 100 MG TABLET PO ×2 (08:41→22:00)
[2023-06-16] MEDS: LIDOCAINE 5% PATCH 1 PATCH TRANSDERM (08:41)
[2023-06-16] MEDS: cefTRIAXone 2 GM/NS 100 ML 2 GM/100 ML BAG IVPB (08:41)
[2023-06-16] MEDS: PANTOPRAZOLE SODIUM IV 40 MG VIAL IV PUSH (08:42)
[2023-06-16 09:10] VITALS: O2SAT 93
[2023-06-16] MEDS: POTASSIUM CHLORIDE 20 MEQ ER TABLET 40 MEQ PO ×2 (11:42→16:03)
[2023-06-16 12:49] LABS: Partial Thromboplastin Time 77.7 Seconds (22.3-36.8)
--- NOTE | 2023-06-16 13:42 | PM.PNGS ---
Progress Note: A&P Assessment and Plan (1) Acute thrombosis of inferior vena cava: Code(s): I82.220 - Acute embolism and thrombosis of inferior vena cava Status: Acute Assessment and Plan: Acute thrombus in the right hepatic vein and inferior vena cava found on MRCP. Likely secondary to the pancreatitis. Currently on a heparin drip for anticoagulation. No plans for surgery during this hospitalization, so it is okay from our standpoint to transition the patient to oral anticoagulation now that she is tolerating a diet. 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 (3) Post-ERCP acute pancreatitis: Code(s): K91.89 - Other postprocedural complications and disorders of digestive system; K85.90 - Acute pancreatitis without necrosis or infection, unspecified Status: Acute Assessment and Plan: WBC count and lipase trending down to 700 today. Abdominal pain slowly improving. Continue medical management. Advanced to full liquids today. She still has not had a bowel movement. Will give another dulcolax suppository today. (4) Choledocholithiasis: Code(s): K80.50 - Calculus of bile duct without cholangitis or cholecystitis without obstruction Status: Acute Assessment and Plan: Likely passed common bile duct stone prior to ERCP. MRCP showed acute interstitial pancreatitis and cholelithiasis, as well as thrombus of the right hepatic vein and inferior vena cava. Currently on anticoagulation. Will hold off on her interval cholecystectomy until she is followed up as an outpatient. (5) Cholelithiasis: Code(s): K80.20 - Calculus of gallbladder without cholecystitis without obstruction Status: Acute Assessment and Plan: She still has gallstones and will eventually need an interval cholecystectomy as an outpatient once her thrombus is treated. Plan I have discussed the patient's case and plan of care with Dr. Murphy. Subjective Subjective Date/Time Seen: 06/16/23 13:42 Patient reports: no new complaints, feels better, tolerating liquids well, flatus, no bowel movement and afebrile Interval history: Patient feels like her abdominal pain is a little better again today. She is still requiring IV Dilaudid today but did not have any oral pain medication options. She was advanced to full liquids this morning and reports she is doing well. No nausea today or vomiting. She reports more flatus today, but still no BM. She had a dulcolax suppository yesterday. Review of Systems Review of Systems: All systems reviewed & are unremarkable except as noted in HPI and below Exam Const: General: comfortable and no acute distress Orientation/consciousness: patient oriented x3 GI: Inspection: other (mildly distended) GI Palp: Yes Soft to palpation, Yes Tenderness to palpation present (GI) (less tender today with mild TTP across the upper abdomen), No Guarding due to palpation present (GI), Yes No hepatosplenomegaly present and No Rebound tenderness present Auscultation: Hypoactive bowel sounds present Extrem: General: no calf tenderness and no edema Objective Data Vital Signs Vital Signs: Vital Signs - 24 hr 06/15/23 13:55 06/15/23 14:00 06/15/23 14:55 Temperature 100.1 F H 100.1 F H 99.8 F H Pulse Rate 109 H Respiratory Rate 16 Blood Pressure 131/74 Pulse Oximetry 94 Oxygen Delivery Fraction of Inspired Oxygen 06/15/23 17:42 06/15/23 20:22 06/15/23 21:25 Temperature 98.1 F 97.7 F Pulse Rate 85 91 Respiratory Rate 18 Blood Pressure 131/83 Pulse Oximetry 96 Oxygen Delivery Fraction of Inspired Oxygen 06/15/23 20:00 06/16/23 05:15 06/16/23 09:10 Temperature 97.3 F L Pulse Rate 98 Respiratory Rate 18 Blood Pressure 129/76 Pulse Oximetry 92 93 Oxygen Delivery Room Air Room Air Fraction of Inspired Oxygen 21 06/16/23 08:00 Tempera
[2023-06-16 13:59] VITALS: BP 111/85; PULSE 100; RESP 18; TEMP 37.2; O2SAT 96
--- NOTE | 2023-06-16 14:26 | PM.IMPN ---
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 Status: Acute (5) Post-ERCP acute pancreatitis: Code(s): K91.89 - Other postprocedural complications and disorders of digestive system; K85.90 - Acute pancreatitis without necrosis or infection, unspecified Status: Acute (6) Choledocholithiasis: Code(s): K80.50 - Calculus of bile duct without cholangitis or cholecystitis without obstruction Status: Acute (7) Cholelithiasis: Code(s): K80.20 - Calculus of gallbladder without cholecystitis without obstruction Status: Acute Plan #choledocholithiasis -on original imaging appeared to have choledocholithasis, on ERCP no stone was found, possibly stone passed on its own -will need cholecystectomy, surgery consulted. waiting for pancrease numbers to improve, now with hepatic thrombus we may further delay surgery -ABx: rocephin, flagyl. completed 5 days antibiotics -GI ppx: protonix -will need cholecystectomy outpatient #Post-ERCP pancreatitis -downtrending enzymes, lipase down to 700 -will try lidocaine patch for her back pain, but it may just be referred pancreatic pain - likely reactive leukocytosis #Right hepatic vein thrombus -DVT in right hepativ vein into IVC, seen on MRCP - Transition heparin drip to p.o. Eliquis # electrolyte imbalances - patient has numerous electrolyte imbalances, will add Ensure to her diet -continue replete electrolytes as needed - ionized calcium pending serum calcium 4.5 giving 2 g calcium gluconate - potassium 3.2 giving 40 mEq x2 - sodium 129, continue to monitor #chronic conditions -sinus tachycardia: continue home labetolol Diet:?full liquid diet DVT ppx:?heparin gtt transition to eliquis Code status: Full code Disposition:?pending clinical course, likely home in 2-3 days Subjective Date/time seen: 06/16/23 14:26 Interval history: Patient seen examined. She is clinically improving. Lipase down to 700. She still has some back pain which is likely referred from her pancreatic pain. She continues to have electrolyte imbalances including hyponatremia, hypocalcemia, hypokalemia. We repleting as needed. It appears surgical team will not be operating cholecystectomy during this hospitalization, will need outpatient follow-up. we will continue to advance diet and correct electrolytes. Patient sources abdominal pain epigastric to back pain. She denies fever, chills, nausea vomiting, diarrhea. Review of Systems Review of Systems: 10 point ROS complete, negative other than what is specified in HPI. Exam Narrative: - GENERAL:? Pleasant woman in no acute distress - EYES: EOMI. Anicteric. - HENT: Moist mucous membranes. - LUNGS: Clear to auscultation bilaterally, no wheezing, rhonchi, or rales. - CARDIOVASCULAR: Regular rate and rhythm. No murmur. No JVD. - ABDOMEN: Soft, tender in epigastric region on deep palpation. - EXTREMITIES: No edema. Peripheral pulses 2+. Non-tender. - NEUROLOGIC: No focal neurological deficits. CN II-XII grossly intact. sensation intact but she complains of neuropathy - PSYCHIATRIC: Awake, Alert and oriented x 3. Appropriate mood and affect. - SKIN: No rashes or lesions. Warm. - LYMPH: No cervical lymphadenopathy. Objective Data Vital Signs Vital Signs: Vital Signs - 24 hr 06/15/23 14:55 06/15/23 17:42 06/15/23 20:22 Temperature 37.7 C H 36.7 C Pulse Rate 85 Respiratory Rate Blood Pressure Pulse Oximetry Oxygen Delivery Fraction of Inspired Oxygen 06/15/23
--- NOTE | 2023-06-16 15:14 | WPDGIPROGNO ---
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 Status: Acute Assessment and Plan: new finding by MRCP on heparin gtt then probably transition to eliquis (2) Acute thrombosis of inferior vena cava: Code(s): I82.220 - Acute embolism and thrombosis of inferior vena cava Status: Acute (3) Post-ERCP acute pancreatitis: Code(s): K91.89 - Other postprocedural complications and disorders of digestive system; K85.90 - Acute pancreatitis without necrosis or infection, unspecified Status: Acute Assessment and Plan: lft and lipase trending down still epigastric pain, tolerating liquid diet (4) Choledocholithiasis: Code(s): K80.50 - Calculus of bile duct without cholangitis or cholecystitis without obstruction Status: Acute Assessment and Plan: s/p ercp with sphincterotomy (stone had already passed), MRCP after ERCP no bile duct stone (5) RUQ pain: Code(s): R10.11 - Right upper quadrant pain Status: Acute Assessment and Plan: no surgery given acute thrombus, she will need to follow-up with surgery as outpatient Subjective Date/time seen: 06/16/23 15:14 Interval history: similar abdominal pain, requiring iv pain med Review of Systems Review of Systems: All systems reviewed & are unremarkable except as noted in HPI and below Exam Const: General: comfortable and no acute distress Orientation/consciousness: patient oriented x3 HENMT: Face/Nose/Sinus: Normal nares present Eyes: Sclera: sclerae normal Neck: Neck: supple Resp: Effort & Inspection: normal respiratory effort Cardio: Rate: regular rate GI: Inspection: other (mildly distended) GI Palp: Yes Soft to palpation, Yes Tenderness to palpation present (GI) (less tender today with mild TTP across the upper abdomen), No Guarding due to palpation present (GI), Yes No hepatosplenomegaly present and No Rebound tenderness present Auscultation: Hypoactive bowel sounds present Skin: General skin exam: normal color Neuro: Speech: normal speech Motor exam (neuro): 5/5 motor strength present throughout Extrem: General: no calf tenderness and no edema Objective Data Vital Signs Vital Signs: Vital Signs - 24 hr 06/15/23 17:42 06/15/23 20:22 06/15/23 21:25 Temperature 98.1 F 97.7 F Pulse Rate 85 91 Respiratory Rate 18 Blood Pressure 131/83 Pulse Oximetry 96 Oxygen Delivery Fraction of Inspired Oxygen 06/15/23 20:00 06/16/23 05:15 06/16/23 09:10 Temperature 97.3 F L Pulse Rate 98 Respiratory Rate 18 Blood Pressure 129/76 Pulse Oximetry 92 93 Oxygen Delivery Room Air Room Air Fraction of Inspired Oxygen 21 06/16/23 08:00 06/16/23 13:59 Temperature 98.9 F Pulse Rate 98 100 Respiratory Rate 18 18 Blood Pressure 111/85 Pulse Oximetry 93 96 Oxygen Delivery Room Air Fraction of Inspired Oxygen 21 Intake/Output Intake/Output: Intake & Output 06/13/23 06/14/23 06/15/23 06/16/23 23:59 23:59 23:59 23:59 Intake Total 3236.7 4343.7 2297.7 875.2 Output Total 600 Balance 2636.7 4343.7 2297.7 875.2 Meds/Results Medications: Active Medications Generic Name Dose Route Start Last Admin Trade Name Freq PRN Reason Stop Dose Admin Acetaminophen 650 mg 06/13/23 01:13 06/15/23 17:41 Acetaminophen 325 Mg Tablet PO 650 mg Q4H PRN Administration Mild Pain (1-3) or Fever Hydrocodone Bitart/Acetaminophen 1 tab 06/16/23 12:41 Hydrocodone/Acetaminophen (*Crx) 5-325 Mg Tablet PO Q4H PRN Pain Rated 4-6 Hydrocodone Bitart/Acetaminophen 1 tab 06/16/23 13:44 Hydrocodone/Acetaminophen (*Crx) 10-325 Mg Tablet PO Q6H PRN Pain Rated 7-10 Apixaban 10 mg 06/16/23 21:00 Apixaban 5 Mg Tablet PO 06/23/23 20:59 Q12HR KSENIA Apixaban 5 mg 06/23/23 09:00 Apixaban 5 Mg Tablet PO Q12HR KSENIA Hydromorphone HCl 0.5 mg
[2023-06-16] MEDS: CALCIUM GLUC 2,000 MG/NS 100ML 2,000 MG/100 ML BAG 100 MG IVPB (16:02)
[2023-06-16] MEDS: POTASSIUM CHLORIDE 20 MEQ PACKET (FOR LIQUID) 40 MEQ PO (16:03)
[2023-06-16] MEDS: BISACODYL 10 MG SUPPOSITORY RECTAL (16:13)
[2023-06-16] MEDS: ACETAMINOPHEN 325 MG TABLET 650 MG PO (18:11)
[2023-06-16 18:56] LABS: Partial Thromboplastin Time 58.2 Seconds (22.3-36.8)
[2023-06-16 21:14] VITALS: BP 124/83; PULSE 94; RESP 14; TEMP 36.9; O2SAT 97
[2023-06-16] MEDS: HYDROcodone/acetaminophen (*CRX) 10-325 MG TABLET 1 TAB PO (21:59)
[2023-06-16 22:00] VITALS: PULSE 94
[2023-06-16] MEDS: SENNOSIDES 8.6 MG TABLET 17.2 MG PO (22:00)
[2023-06-16] MEDS: APIXABAN 5 MG TABLET 10 MG PO (22:00)
[2023-06-17] MEDS: HYDROcodone/acetaminophen (*CRX) 5-325 MG TABLET 1 TAB PO ×3 (01:12→20:28)
[2023-06-17] MEDS: HYDROmorphone HCL INJ (*CRX) 1 MG/ML SYR 0.5 MG IV PUSH ×2 (03:08→08:11)
[2023-06-17] MEDS: HYDROcodone/acetaminophen (*CRX) 10-325 MG TABLET 1 TAB PO ×4 (05:22→23:42)
[2023-06-17 05:32] VITALS: BP 129/73; PULSE 96; RESP 13; TEMP 37; O2SAT 97
[2023-06-17 06:05] LABS: Hemoglobin 10.8 g/dL (12.0-15.0); Mean Corpuscular HGB Conc 31.8 g/dl (32-36); Mean Corpuscular Hemoglobin 25.8 pg (26-34); Mean Corpuscular Volume 81.3 fl (80-100); Mean Platelet Volume 9.7 fl (7.4-10.4); Platelet Count Result 346 k/mm3 (150-375); Red Blood Count 4.18 M/mm3 (4.2-5.4); Red Cell Distribution Width 15.1 % (11.5-14.5); White Blood Count 13.5 K/mm3 (4.5-10.0)
[2023-06-17 06:30] LABS: Alanine Aminotransferase 125 U/L (6-35); Albumin Level 3.2 g/dL (3.5-5.1); Alkaline Phosphatase 94 U/L (38-126); Anion Gap 4 mmol/L (4-12); Aspartate Amino Transferase 51 U/L (14-36); Bilirubin,Total 0.6 mg/dL (0.2-1.3); Blood Urea Nitrogen 6 mg/dL (7-17); Calcium 5.3 mg/dL (8.4-10.2); Carbon Dioxide 28 mmol/L (22-30); Chloride 100 mmol/L (98-107); Estimated CRCL calculation 186 ml/min; Estimated Glomerular Filt Rate > 60; Glucose 115 mg/dL (65-110); Lipase 123 U/L (23-300); Magnesium 2.2 mg/dL (1.6-2.3); Sodium 132 mmol/L (137-145)
[2023-06-17 07:08] LABS: Phosphorus < 1.0 mg/dL (2.5-4.5)
[2023-06-17 08:15] VITALS: PULSE 92
[2023-06-17] MEDS: LABETALOL HCL 100 MG TABLET PO ×2 (08:15→20:23)
[2023-06-17] MEDS: LIDOCAINE 5% PATCH 1 PATCH TRANSDERM (08:15)
[2023-06-17] MEDS: APIXABAN 5 MG TABLET 10 MG PO ×2 (08:17→20:22)
[2023-06-17] MEDS: PANTOPRAZOLE 40 MG TABLET PO (08:18)
[2023-06-17] MEDS: POTASSIUM CHLORIDE 20 MEQ ER TABLET 40 MEQ PO ×2 (08:18→13:05)
[2023-06-17] MEDS: CALCIUM GLUC 1,000 MG/NS 50 ML 1,000 MG/50 ML BAG 100 MG IVPB (08:52)
[2023-06-17] MEDS: POTASSIUM PHOS,M-BASIC-D-BASIC 15 MMOL in SODIUM CHLORIDE 0.9% IV 250 ML 63.75 MMOL IVPB (09:49)
[2023-06-17] MEDS: ACETAMINOPHEN 325 MG TABLET 650 MG PO (10:25)
--- NOTE | 2023-06-17 11:38 | PM.IMPN ---
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 Status: Acute (5) Post-ERCP acute pancreatitis: Code(s): K91.89 - Other postprocedural complications and disorders of digestive system; K85.90 - Acute pancreatitis without necrosis or infection, unspecified Status: Acute (6) Choledocholithiasis: Code(s): K80.50 - Calculus of bile duct without cholangitis or cholecystitis without obstruction Status: Acute (7) Cholelithiasis: Code(s): K80.20 - Calculus of gallbladder without cholecystitis without obstruction Status: Acute Plan #choledocholithiasis -on original imaging appeared to have choledocholithasis, on ERCP no stone was found, possibly stone passed on its own -will need cholecystectomy, surgery consulted. waiting for pancrease numbers to improve, now with hepatic thrombus we may further delay surgery -ABx: rocephin, flagyl. completed 5 days antibiotics -GI ppx: protonix -will need cholecystectomy outpatient after treating acute thrombus #Post-ERCP pancreatitis -downtrending enzymes, lipase normalized -will try lidocaine patch for her back pain, but it may just be referred pancreatic pain -likely reactive leukocytosis, which is improving #Right hepatic vein thrombus -DVT in right hepatic vein into IVC, seen on MRCP -treating with elikeyshais # electrolyte imbalances - patient has numerous electrolyte imbalances, will add Ensure to her diet - continue replete electrolytes as needed - calcium 5.3, giving 1 g calcium gluconate - KCL 3.0 giving 40 mEq x2 KCL - phos <1 given K-Phos #chronic conditions -sinus tachycardia: continue home labetolol Diet:?advanced to low fat diet DVT ppx:?Eliquis Code status: Full code Disposition:?likely home in 1-2 days Subjective Date/time seen: 06/17/23 11:38 Interval history: patient seen examined. She still has some abdominal pain that radiates to her back. Otherwise leukocytosis improving, electrolytes continue knee replacement including potassium, calcium, phosphorus. Lipase down to 123. She is tolerating the Eliquis without any issues. Anticipate discharge in next couple days with outpatient surgery follow-up. patient denies fever, chills, nausea vomiting, diarrhea. she does endorse abdominal pain. We are advancing to low-fat diet. Review of Systems Review of Systems: 10 point ROS complete, negative other than what is specified in HPI. All systems reviewed & are unremarkable except as noted in HPI and below Exam Narrative: - GENERAL:? Pleasant woman in no acute distress - EYES: EOMI. Anicteric. - HENT: Moist mucous membranes. - LUNGS: Clear to auscultation bilaterally, no wheezing, rhonchi, or rales. - CARDIOVASCULAR: Regular rate and rhythm. No murmur. No JVD. - ABDOMEN: Soft, tender in epigastric region on deep palpation, normoactive bowels - EXTREMITIES: No edema. Peripheral pulses 2+. Non-tender. - NEUROLOGIC: No focal neurological deficits. CN II-XII grossly intact. - PSYCHIATRIC: Awake, Alert and oriented x 3. Appropriate mood and affect. - SKIN: No rashes or lesions. Warm. - LYMPH: No cervical lymphadenopathy. Objective Data Vital Signs Vital Signs: Vital Signs - 24 hr 06/16/23 13:59 06/16/23 21:14 06/16/23 22:00 Temperature 37.2 C 36.9 C Pulse Rate 100 94 94 Respiratory Rate 18 14 Blood Pressure 111/85 124/83 Pulse Oximetry 96 97 06/17/23 05:32 06/17/23 08:15 Temperature 37.0 C Pulse Rate 96 92 Respiratory Rate 13 Blood Pressure 129/73 Pulse Oximetry 97 Intak
[2023-06-17 14:00] VITALS: BP 129/68; PULSE 96; RESP 17; TEMP 37.1; O2SAT 98
[2023-06-17] MEDS: POTASSIUM/PHOSPHORUS/SODIUM 1.5 GM PACKET 1 PACKET PO (15:21)
--- NOTE | 2023-06-17 16:01 | WPDGIPROGNO ---
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 Status: Acute Assessment and Plan: new finding by MRCP transitioned to eliquis (2) Acute thrombosis of inferior vena cava: Code(s): I82.220 - Acute embolism and thrombosis of inferior vena cava Status: Acute (3) Post-ERCP acute pancreatitis: Code(s): K91.89 - Other postprocedural complications and disorders of digestive system; K85.90 - Acute pancreatitis without necrosis or infection, unspecified Status: Acute Assessment and Plan: normal lipase and lft trending down advance to low fat diet (4) Choledocholithiasis: Code(s): K80.50 - Calculus of bile duct without cholangitis or cholecystitis without obstruction Status: Acute Assessment and Plan: s/p ercp with sphincterotomy (stone had already passed), MRCP after ERCP no bile duct stone (5) RUQ pain: Code(s): R10.11 - Right upper quadrant pain Status: Acute Assessment and Plan: no surgery given acute thrombus, she will need to follow-up with surgery as outpatient Subjective Date/time seen: 06/17/23 16:01 Interval history: still with pain, last night required iv pain med, she still does not feel ready to go home- trying to use more oral pain meds tolerating diet Review of Systems Review of Systems: All systems reviewed & are unremarkable except as noted in HPI and below Exam Const: General: comfortable and no acute distress Orientation/consciousness: patient oriented x3 HENMT: Face/Nose/Sinus: Normal nares present Eyes: Sclera: sclerae normal Neck: Neck: supple Resp: Effort & Inspection: normal respiratory effort Cardio: Rate: regular rate GI: Inspection: other (mildly distended) GI Palp: Yes Soft to palpation, Yes Tenderness to palpation present (GI) (less tender today with mild TTP across the upper abdomen), No Guarding due to palpation present (GI), Yes No hepatosplenomegaly present and No Rebound tenderness present Auscultation: normal bowel sounds Skin: General skin exam: normal color Neuro: Speech: normal speech Motor exam (neuro): 5/5 motor strength present throughout Extrem: General: no calf tenderness and no edema Objective Data Vital Signs Vital Signs: Vital Signs - 24 hr 06/16/23 21:14 06/16/23 22:00 06/17/23 05:32 Temperature 98.5 F 98.6 F Pulse Rate 94 94 96 Respiratory Rate 14 13 Blood Pressure 124/83 129/73 Pulse Oximetry 97 97 Oxygen Delivery 06/17/23 08:15 06/17/23 08:10 06/17/23 14:00 Temperature 98.8 F Pulse Rate 92 96 Respiratory Rate 17 Blood Pressure 129/68 Pulse Oximetry 98 Oxygen Delivery Room Air Intake/Output Intake/Output: Intake & Output 06/14/23 06/15/23 06/16/23 06/17/23 23:59 23:59 23:59 23:59 Intake Total 4343.7 2297.7 1115.2 1375 Balance 4343.7 2297.7 1115.2 1375 Meds/Results Medications: Active Medications Generic Name Dose Route Start Last Admin Trade Name Freq PRN Reason Stop Dose Admin Acetaminophen 650 mg 06/13/23 01:13 06/17/23 10:25 Acetaminophen 325 Mg Tablet PO 650 mg Q4H PRN Administration Mild Pain (1-3) or Fever Hydrocodone Bitart/Acetaminophen 1 tab 06/16/23 12:41 06/17/23 15:23 Hydrocodone/Acetaminophen (*Crx) 5-325 Mg Tablet PO 1 tab Q4H PRN Administration Pain Rated 4-6 Hydrocodone Bitart/Acetaminophen 1 tab 06/16/23 13:44 06/17/23 12:19 Hydrocodone/Acetaminophen (*Crx) 10-325 Mg Tablet PO 1 tab Q6H PRN Administration Pain Rated 7-10 Apixaban 10 mg 06/16/23 21:00 06/17/23 08:17 Apixaban 5 Mg Tablet PO 06/23/23 09:01 10 mg Q12HR KSENIA Administration Apixaban 5 mg 06/23/23 21:00 Apixaban 5 Mg Tablet PO Q12HR KSENIA Hydromorphone HCl 0.5 mg 06/15/23 21:07 06/17/23 08:11 Hydromorphone Hcl Inj (*Crx) 1 Mg/Ml Syr IV PUSH 0.5 mg Q3H PRN Administration Pain Rated 7-10 Lab
--- NOTE | 2023-06-17 16:14 | PM.PNGS ---
Progress Note: A&P Assessment and Plan (1) Acute thrombosis of inferior vena cava: Code(s): I82.220 - Acute embolism and thrombosis of inferior vena cava Status: Acute Assessment and Plan: Acute thrombus in the right hepatic vein and inferior vena cava found on MRCP. Likely secondary to the pancreatitis. She has been transitioned to oral anticoagulation. 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 (3) Post-ERCP acute pancreatitis: Code(s): K91.89 - Other postprocedural complications and disorders of digestive system; K85.90 - Acute pancreatitis without necrosis or infection, unspecified Status: Acute Assessment and Plan: Lipase normal today. Abdominal pain continues to improve. Advance to a low fat diet. Phos < 1.0 and potassium still low at 3.0, will replace with K phos and repeat labs tomorrow. Replace as needed. (4) Choledocholithiasis: Code(s): K80.50 - Calculus of bile duct without cholangitis or cholecystitis without obstruction Status: Acute Assessment and Plan: Likely passed common bile duct stone prior to ERCP. MRCP showed acute interstitial pancreatitis and cholelithiasis, as well as thrombus of the right hepatic vein and inferior vena cava. (5) Cholelithiasis: Code(s): K80.20 - Calculus of gallbladder without cholecystitis without obstruction Status: Acute Assessment and Plan: She still has gallstones and will eventually need an interval cholecystectomy as an outpatient once her thrombus is treated and it is safe to hold her anticoagulation. Plan I have discussed the patient's case and plan of care with Dr. Murphy. Subjective Subjective Date/Time Seen: 06/17/23 16:14 Patient reports: tolerating a regular diet, flatus and bowel movement Interval history: Patient improved some today. She reports her abdominal pain seems to be slowly improving, but she continues to have lower back pain that is uncontrolled by the hydrocodone earlier this morning and last night requiring Dilaudid. They started a lidocaine patch for her back, but not much relief. No nausea or vomiting. Tolerating solids. She had a bowel movement last night and felt like her abdominal pain improved significantly. Exam Const: General: comfortable and no acute distress Orientation/consciousness: patient oriented x3 GI: Inspection: other (mildly distended) GI Palp: Yes Soft to palpation, Yes Tenderness to palpation present (GI) (mild tenderness mostly in the epigastric area and slightly in the LUQ), No Guarding due to palpation present (GI), No Hernia present and No Rebound tenderness present Auscultation: normal bowel sounds Objective Data Vital Signs Vital Signs: Vital Signs - 24 hr 06/16/23 21:14 06/16/23 22:00 06/17/23 05:32 Temperature 98.5 F 98.6 F Pulse Rate 94 94 96 Respiratory Rate 14 13 Blood Pressure 124/83 129/73 Pulse Oximetry 97 97 Oxygen Delivery 06/17/23 08:15 06/17/23 08:10 06/17/23 14:00 Temperature 98.8 F Pulse Rate 92 96 Respiratory Rate 17 Blood Pressure 129/68 Pulse Oximetry 98 Oxygen Delivery Room Air Intake/Output Intake/Output: Intake & Output 06/14/23 06/15/23 06/16/23 06/17/23 23:59 23:59 23:59 23:59 Intake Total 4343.7 2297.7 1115.2 1375 Balance 4343.7 2297.7 1115.2 1375 Meds/Results Medications: Active Medications Generic Name Dose Route Start Last Admin Trade Name Freq PRN Reason Stop Dose Admin Acetaminophen 650 mg 06/13/23 01:13 06/17/23 10:25 Acetaminophen 325 Mg Tablet PO 650 mg Q4H PRN Administration Mild Pain (1-3) or Fever Hydrocodone Bitart/Acetaminophen 1 tab 06/16/23 12:41 06/17/23 15:23 Hydrocodone/Acetaminophen (*Crx) 5-325 Mg Tablet PO 1 tab Q4H PRN Administration Pain Rated 4-6 Hydrocodone Bitart/Acetaminophen 1 tab 06/16/23 13:44 06/17/23 12:19 Hydroc
[2023-06-17] MEDS: SENNOSIDES 8.6 MG TABLET 17.2 MG PO (20:22)
[2023-06-17 20:23] VITALS: PULSE 97
[2023-06-17 21:34] VITALS: BP 131/85; PULSE 97; RESP 18; TEMP 37.2; O2SAT 98
[2023-06-18] MEDS: HYDROcodone/acetaminophen (*CRX) 5-325 MG TABLET 1 TAB PO ×3 (02:10→14:46)
[2023-06-18 06:00] VITALS: BP 140/82; PULSE 97; RESP 18; TEMP 37.6; O2SAT 98
[2023-06-18 06:50] LABS: Hematocrit 34.2 % (37.0-47.0); Hemoglobin 10.5 g/dL (12.0-15.0); Mean Corpuscular HGB Conc 30.7 g/dl (32-36); Mean Corpuscular Hemoglobin 25.5 pg (26-34); Mean Platelet Volume 9.2 fl (7.4-10.4); Platelet Count Result 372 k/mm3 (150-375); Red Blood Count 4.12 M/mm3 (4.2-5.4); Red Cell Distribution Width 15.8 % (11.5-14.5); White Blood Count 16.9 K/mm3 (4.5-10.0)
[2023-06-18 07:05] LABS: Alanine Aminotransferase 104 U/L (6-35); Albumin Level 3.5 g/dL (3.5-5.1); Alkaline Phosphatase 105 U/L (38-126); Anion Gap 8 mmol/L (4-12); Aspartate Amino Transferase 60 U/L (14-36); Bilirubin,Total 0.6 mg/dL (0.2-1.3); Blood Urea Nitrogen 6 mg/dL (7-17); Calcium 6.5 mg/dL (8.4-10.2); Carbon Dioxide 23 mmol/L (22-30); Chloride 102 mmol/L (98-107); Estimated CRCL calculation 186 ml/min; Estimated Glomerular Filt Rate > 60; Glucose 104 mg/dL (65-110); Magnesium 2.6 mg/dL (1.6-2.3); Phosphorus 1.2 mg/dL (2.5-4.5); Potassium 3.9 mmol/L (3.4-5.0); Sodium 133 mmol/L (137-145)
[2023-06-18] MEDS: POTASSIUM PHOS,M-BASIC-D-BASIC 15 MMOL in SODIUM CHLORIDE 0.9% IV 250 ML 63.75 MMOL IVPB (08:56)
[2023-06-18 08:58] VITALS: PULSE 96
[2023-06-18] MEDS: LIDOCAINE 5% PATCH 1 PATCH TRANSDERM (08:58)
[2023-06-18] MEDS: PANTOPRAZOLE 40 MG TABLET PO (08:58)
[2023-06-18] MEDS: APIXABAN 5 MG TABLET 10 MG PO ×2 (08:58→20:20)
[2023-06-18] MEDS: LABETALOL HCL 100 MG TABLET PO ×2 (08:58→20:20)
[2023-06-18] MEDS: HYDROcodone/acetaminophen (*CRX) 10-325 MG TABLET 1 TAB PO ×2 (10:25→20:20)
--- NOTE | 2023-06-18 11:31 | PM.PNGS ---
Progress Note: A&P Assessment and Plan (1) Acute thrombosis of inferior vena cava: Code(s): I82.220 - Acute embolism and thrombosis of inferior vena cava Status: Acute Assessment and Plan: Acute thrombus in the right hepatic vein and inferior vena cava found on MRCP. Likely secondary to the pancreatitis. She has been transitioned to oral anticoagulation. 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 (3) Post-ERCP acute pancreatitis: Code(s): K91.89 - Other postprocedural complications and disorders of digestive system; K85.90 - Acute pancreatitis without necrosis or infection, unspecified Status: Acute Assessment and Plan: Lipase normalized. Abdominal pain continues to improve daily. Tolerating a low fat diet. Phos 1.2 and potassium better at 3.9, she was given another 15 millimoles K-Phos today. Repeat labs again tomorrow. White blood cell count up to 16,000 today. She is afebrile and appears to be clinically improving. We will monitor labs but may need to consider repeat imaging of her abdomen and pelvis if her white blood cell count continues to trend up. Will also give a Dulcolax suppository today. (4) Choledocholithiasis: Code(s): K80.50 - Calculus of bile duct without cholangitis or cholecystitis without obstruction Status: Acute Assessment and Plan: Likely passed common bile duct stone prior to ERCP. MRCP showed acute interstitial pancreatitis and cholelithiasis, as well as thrombus of the right hepatic vein and inferior vena cava. (5) Cholelithiasis: Code(s): K80.20 - Calculus of gallbladder without cholecystitis without obstruction Status: Acute Assessment and Plan: She still has gallstones and will eventually need an interval cholecystectomy as an outpatient once her thrombus is treated and it is safe to hold her anticoagulation. Plan I have discussed the patient's case and plan of care with Dr. Murphy. Subjective Subjective Date/Time Seen: 06/18/23 11:31 Patient reports: no new complaints, feels better, pain is less, tolerating a regular diet, flatus, no bowel movement and afebrile Interval history: Patient feeling better today her abdominal pain has improved since yesterday. She has not required any Dilaudid for breakthrough pain since yesterday morning around 8:00 a.m.. She reports left upper quadrant abdominal pain mostly following meals. She also is still having lower back pain that is consistent, but does seem to be aggravated by eating. She also reports feeling more soreness when lying around for a long period of time. She reports more sharp pains after eating. No nausea or vomiting. Tolerating a regular diet. Exam Const: General: comfortable and no acute distress Orientation/consciousness: patient oriented x3 GI: Inspection: other (mildly distended) GI Palp: Yes Soft to palpation, Yes Tenderness to palpation present (GI) (epigastric and LUQ), Yes Guarding due to palpation present (GI) (epigastric area) and No Rebound tenderness present Auscultation: Hypoactive bowel sounds present Objective Data Vital Signs Vital Signs: Vital Signs - 24 hr 06/17/23 14:00 06/17/23 20:23 06/17/23 21:34 Temperature 98.8 F 99 F Pulse Rate 96 97 97 Respiratory Rate 17 18 Blood Pressure 129/68 131/85 Pulse Oximetry 98 98 Oxygen Delivery 06/18/23 06:00 06/18/23 08:58 06/18/23 09:00 Temperature 99.6 F Pulse Rate 97 96 Respiratory Rate 18 Blood Pressure 140/82 Pulse Oximetry 98 Oxygen Delivery Room Air Intake/Output Intake/Output: Intake & Output 06/15/23 06/16/23 06/17/23 06/18/23 23:59 23:59 23:59 23:59 Intake Total 2297.7 1115.2 2175 1225 Balance 2297.7 1115.2 2175 1225 Meds/Results Medications: Active Medications Generic Name Dose Route Start Last Admin Trade Name Freq PRN Reason Stop Dose Admin Ac
[2023-06-18] MEDS: BISACODYL 10 MG SUPPOSITORY RECTAL (11:48)
--- NOTE | 2023-06-18 11:52 | PM.IMPN ---
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 Status: Acute (5) Post-ERCP acute pancreatitis: Code(s): K91.89 - Other postprocedural complications and disorders of digestive system; K85.90 - Acute pancreatitis without necrosis or infection, unspecified Status: Acute (6) Choledocholithiasis: Code(s): K80.50 - Calculus of bile duct without cholangitis or cholecystitis without obstruction Status: Acute (7) Cholelithiasis: Code(s): K80.20 - Calculus of gallbladder without cholecystitis without obstruction Status: Acute Plan #choledocholithiasis -on original imaging appeared to have choledocholithasis, on ERCP no stone was found, possibly stone passed on its own -will need cholecystectomy, surgery consulted. waiting for pancrease numbers to improve, now with hepatic thrombus we may further delay surgery -ABx: rocephin, flagyl. completed 5 days antibiotics -GI ppx: protonix -will need cholecystectomy outpatient after treating acute thrombus #Post-ERCP pancreatitis -downtrending enzymes, lipase normalized -will try lidocaine patch for her back pain, but it may just be referred pancreatic pain -likely reactive leukocytosis, WBC up to 16k #Right hepatic vein thrombus -DVT in right hepatic vein into IVC, seen on MRCP -treating with eliquis # electrolyte imbalances - patient has numerous electrolyte imbalances, will add Ensure to her diet - continue replete electrolytes as needed - calcium 6.5 - KCL 3.9 - phos 1.2, giving another 16mmol kphos -repeat labs in AM #chronic conditions -sinus tachycardia: continue home labetolol Diet: low fat diet DVT ppx:?Eliquis Code status: Full code Disposition:?home in 1-3 days Subjective Date/time seen: 06/18/23 11:52 Interval history: patient seen examined. She is doing well no new complaints. Patient has needed IV pain control for several days. Leukocytosis increased advancing her diet. We will continue monitor on low-fat diet today. We are continue to replete electrolytes phosphorus 1.2. Anticipate discharge in next day or 2. Patient has fever, chills, nausea vomiting, diarrhea. She endorses abdominal which is worse after meals. Review of Systems Review of Systems: All systems reviewed & are unremarkable except as noted in HPI and below Exam Narrative: - GENERAL:? Pleasant woman in no acute distress - EYES: EOMI. Anicteric. - HENT: Moist mucous membranes. - LUNGS: Clear to auscultation bilaterally, no wheezing, rhonchi, or rales. - CARDIOVASCULAR: Regular rate and rhythm. No murmur. No JVD. - ABDOMEN: Soft, nondistended, mildly tender - EXTREMITIES: No edema. Peripheral pulses 2+. Non-tender. - NEUROLOGIC: No focal neurological deficits. CN II-XII grossly intact. - PSYCHIATRIC: Awake, Alert and oriented x 3. Appropriate mood and affect. - SKIN: No rashes or lesions. Warm. - LYMPH: No cervical lymphadenopathy. Objective Data Vital Signs Vital Signs: Vital Signs - 24 hr 06/17/23 14:00 06/17/23 20:23 06/17/23 21:34 Temperature 37.1 C 37.2 C Pulse Rate 96 97 97 Respiratory Rate 17 18 Blood Pressure 129/68 131/85 Pulse Oximetry 98 98 Oxygen Delivery 06/18/23 06:00 06/18/23 08:58 06/18/23 09:00 Temperature 37.6 C Pulse Rate 97 96 Respiratory Rate 18 Blood Pressure 140/82 Pulse Oximetry 98 Oxygen Delivery Room Air Intake/Output Intake/Output: Intake & Output 06/15/23 06/16/23 06/17/23 06/18/23 23:59 23:59 23:59 23:59 Intake Total 2297.7 1115.2 2175 122
--- NOTE | 2023-06-18 13:18 | WPDGIPROGNO ---
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 Status: Acute Assessment and Plan: new finding by MRCP transitioned to eliquis (2) Acute thrombosis of inferior vena cava: Code(s): I82.220 - Acute embolism and thrombosis of inferior vena cava Status: Acute (3) Post-ERCP acute pancreatitis: Code(s): K91.89 - Other postprocedural complications and disorders of digestive system; K85.90 - Acute pancreatitis without necrosis or infection, unspecified Status: Acute Assessment and Plan: normal lipase and lft down/stable tolerating low fat diet (4) Choledocholithiasis: Code(s): K80.50 - Calculus of bile duct without cholangitis or cholecystitis without obstruction Status: Acute Assessment and Plan: s/p ercp with sphincterotomy (stone had already passed), MRCP after ERCP no bile duct stone jessica postponed, will need follow-up with surgery currently on eliquis (5) RUQ pain: Code(s): R10.11 - Right upper quadrant pain Status: Acute Assessment and Plan: no surgery given acute thrombus requiring less pain meds (worsened after pancreatitis) Subjective Date/time seen: 06/18/23 13:18 Interval history: less pain, she has not required more iv pain meds Review of Systems Review of Systems: All systems reviewed & are unremarkable except as noted in HPI and below Exam Const: General: comfortable and no acute distress Orientation/consciousness: patient oriented x3 HENMT: Face/Nose/Sinus: Normal nares present Eyes: Sclera: sclerae normal Neck: Neck: supple Resp: Effort & Inspection: normal respiratory effort Cardio: Rate: regular rate GI: Inspection: other (mildly distended) GI Palp: Yes Soft to palpation, Yes Tenderness to palpation present (GI) (epigastric and LUQ), Yes Guarding due to palpation present (GI) (epigastric area) and No Rebound tenderness present Auscultation: Hypoactive bowel sounds present Skin: General skin exam: normal color Neuro: Speech: normal speech Motor exam (neuro): 5/5 motor strength present throughout Extrem: General: normal to inspection Psych: Mental Status: mental status grossly normal Objective Data Vital Signs Vital Signs: Vital Signs - 24 hr 06/17/23 14:00 06/17/23 20:23 06/17/23 21:34 Temperature 98.8 F 99 F Pulse Rate 96 97 97 Respiratory Rate 17 18 Blood Pressure 129/68 131/85 Pulse Oximetry 98 98 Oxygen Delivery 06/18/23 06:00 06/18/23 08:58 06/18/23 09:00 Temperature 99.6 F Pulse Rate 97 96 Respiratory Rate 18 Blood Pressure 140/82 Pulse Oximetry 98 Oxygen Delivery Room Air Intake/Output Intake/Output: Intake & Output 06/15/23 06/16/23 06/17/23 06/18/23 23:59 23:59 23:59 23:59 Intake Total 2297.7 1115.2 2175 1225 Balance 2297.7 1115.2 2175 1225 Meds/Results Medications: Active Medications Generic Name Dose Route Start Last Admin Trade Name Freq PRN Reason Stop Dose Admin Acetaminophen 650 mg 06/13/23 01:13 06/17/23 10:25 Acetaminophen 325 Mg Tablet PO 650 mg Q4H PRN Administration Mild Pain (1-3) or Fever Hydrocodone Bitart/Acetaminophen 1 tab 06/16/23 12:41 06/18/23 07:01 Hydrocodone/Acetaminophen (*Crx) 5-325 Mg Tablet PO 1 tab Q4H PRN Administration Pain Rated 4-6 Hydrocodone Bitart/Acetaminophen 1 tab 06/16/23 13:44 06/18/23 10:25 Hydrocodone/Acetaminophen (*Crx) 10-325 Mg Tablet PO 1 tab Q6H PRN Administration Pain Rated 7-10 Apixaban 10 mg 06/16/23 21:00 06/18/23 08:58 Apixaban 5 Mg Tablet PO 06/23/23 09:01 10 mg Q12HR KSENIA Administration Apixaban 5 mg 06/23/23 21:00 Apixaban 5 Mg Tablet PO Q12HR KSENIA Calcium Carbonate 500 mg 06/18/23 17:00 Calcium/Vitamin D 500 Mg/5 Mcg (200 I.U.) Tablet PO BIDWM KSENIA Hydromorphone HCl 0.5 mg 06/15/23 21:07 06/17/23 08:11 Hydromorphone Hcl I
[2023-06-18 14:00] VITALS: BP 132/82; PULSE 106; RESP 18; TEMP 37.4; O2SAT 94
[2023-06-18] MEDS: polyethylene glycoL 3350 17 GM POWD.PACK PO (14:47)
[2023-06-18 16:13] LABS: Phosphorus 1.4 mg/dL (2.5-4.5)
[2023-06-18] MEDS: CALCIUM/VITAMIN D 500 MG/5 MCG (200 I.U.) TABLET PO (16:57)
[2023-06-18] MEDS: HYDROmorphone HCL INJ (*CRX) 1 MG/ML SYR 0.5 MG IV PUSH ×2 (16:58→21:29)
[2023-06-18 20:13] VITALS: BP 132/76; PULSE 105; RESP 20; TEMP 37.5; O2SAT 97
[2023-06-18 20:20] VITALS: PULSE 105
[2023-06-18] MEDS: POTASSIUM/PHOSPHORUS/SODIUM 1.5 GM PACKET 1 PACKET PO (20:20)
[2023-06-18] MEDS: SENNOSIDES 8.6 MG TABLET 17.2 MG PO (20:20)
[2023-06-19] VITALS (7 sets, daily range): BP systolic 122–137; BP diastolic 75–83; PULSE 91–105; RESP 16–20; TEMP 36.4–38.3; O2SAT 97–99
[2023-06-19] MEDS: CYCLOBENZAPRINE HCL 5 MG TABLET PO (00:24)
[2023-06-19] MEDS: HYDROcodone/acetaminophen (*CRX) 10-325 MG TABLET 1 TAB PO ×3 (03:07→20:30)
[2023-06-19] MEDS: DICYCLOMINE HCL 10 MG CAPSULE 20 MG PO ×2 (03:54→10:22)
[2023-06-19] MEDS: HYDROcodone/acetaminophen (*CRX) 5-325 MG TABLET 1 TAB PO ×2 (06:14→10:22)
[2023-06-19 06:37] LABS: Basophils Absolute Auto 0.2 K/mm3 (0.0-0.1); Basophils Percent Auto 0.8 % (0.2-1.2); Eosinophils Absolute Auto 0.2 K/mm3 (0-0.3); Eosinophils Percent Auto 1.2 % (0-4.4); Hematocrit 34.5 % (37.0-47.0); Hemoglobin 10.5 g/dL (12.0-15.0); Immature Granulocyte Absolute 1.08 K/mm3 (0.00-0.031); Immature Granulocyte Percent A 5.7 % (0-0.5); Lymphocytes Absolute Auto 1.35 K/mm3 (0.9-3.2); Lymphocytes Percent Auto 7.2 % (18.3-44.2); Mean Corpuscular HGB Conc 30.4 g/dl (32-36); Mean Corpuscular Hemoglobin 25.3 pg (26-34); Mean Corpuscular Volume 83.1 fl (80-100); Mean Platelet Volume 9.4 fl (7.4-10.4); Monocytes Absolute Auto 2.1 K/mm3 (0.1-0.6); Neutrophils Percent Auto 74.1 % (45.5-73.1); Nucleated Red Blood Cells Perc 0.1 % (0.0-0.2); Platelet Count Result 438 k/mm3 (150-375); Red Blood Count 4.15 M/mm3 (4.2-5.4); White Blood Count 18.9 K/mm3 (4.5-10.0)
[2023-06-19 06:55] LABS: Alanine Aminotransferase 87 U/L (6-35); Albumin Level 3.4 g/dL (3.5-5.1); Alkaline Phosphatase 123 U/L (38-126); Anion Gap 8 mmol/L (4-12); Aspartate Amino Transferase 49 U/L (14-36); Bilirubin,Total 0.6 mg/dL (0.2-1.3); Blood Urea Nitrogen 4 mg/dL (7-17); Calcium 7.4 mg/dL (8.4-10.2); Carbon Dioxide 23 mmol/L (22-30); Chloride 101 mmol/L (98-107); Estimated CRCL calculation 186 ml/min; Estimated Glomerular Filt Rate > 60; Glucose 101 mg/dL (65-110); Magnesium 2.8 mg/dL (1.6-2.3); Phosphorus 1.5 mg/dL (2.5-4.5); Potassium 3.9 mmol/L (3.4-5.0); Sodium 132 mmol/L (137-145)
[2023-06-19] MEDS: metroNIDAZOLE 500 MG/ISO 100ML 500 MG/100 ML BAG 100 MG IVPB ×3 (08:39→21:58)
[2023-06-19] MEDS: cefTRIAXone 2 GM/NS 100 ML 2 GM/100 ML BAG IVPB (08:40)
[2023-06-19] MEDS: CALCIUM/VITAMIN D 500 MG/5 MCG (200 I.U.) TABLET PO ×2 (08:40→16:50)
[2023-06-19] MEDS: polyethylene glycoL 3350 17 GM POWD.PACK PO (08:41)
[2023-06-19] MEDS: LABETALOL HCL 100 MG TABLET PO ×2 (08:41→20:29)
[2023-06-19] MEDS: APIXABAN 5 MG TABLET 10 MG PO ×2 (08:41→20:29)
[2023-06-19] MEDS: PANTOPRAZOLE 40 MG TABLET PO (08:41)
[2023-06-19] MEDS: LIDOCAINE 5% PATCH 1 PATCH TRANSDERM (09:19)
[2023-06-19] MEDS: POTASSIUM/PHOSPHORUS/SODIUM 1.5 GM PACKET 1 PACKET PO (09:19)
--- NOTE | 2023-06-19 09:50 | WPDPN ---
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 She remains on Eliquis for system anticoagulation. (2) Acute thrombosis of inferior vena cava: Code(s): I82.220 - Acute embolism and thrombosis of inferior vena cava Status: Acute Assessment and Plan: Secondary to acute pancreatitis after ERCP. She remains on Eliquis or systemic anticoagulation (3) Post-ERCP acute pancreatitis: Code(s): K91.89 - Other postprocedural complications and disorders of digestive system; K85.90 - Acute pancreatitis without necrosis or infection, unspecified Status: Acute Assessment and Plan: Has now resolved. Pain is now much better. Lipase is normalized. Patient white blood cell count has creeped up to 18,900 over the past [address] scan abdomen pelvis with IV contrast to make sure she has not without something intra-abdominally which could be causing this increasing white blood cell count. Clinically however her abdomen seems to be improving. If the CT scan abdomen pelvis is negative for intra-abdominal process causing the leukocytosis then from a surgical standpoint she can be discharged home later today or tomorrow. (4) Choledocholithiasis: Code(s): K80.50 - Calculus of bile duct without cholangitis or cholecystitis without obstruction Status: Acute Assessment and Plan: Past common bile duct stone. Still has gallstones. Status post ERCP with sphincterotomy. (5) Cholelithiasis: Code(s): K80.20 - Calculus of gallbladder without cholecystitis without obstruction Status: Acute Assessment and Plan: Patient still has gallstones. After she has recovered from her total and acute phase of recent illness and padding vein and IVC thrombosis has stabilized then I will have her come back to the office to discuss an elective laparoscopic cholecystectomy. Subjective Date/time seen: 06/19/23 09:50 Interval history: Patient sitting up in a chair. Tolerating low-fat diet. Has not needed IV pain medications from his 24hours. No fever or tachycardia. However white blood cell count is now creeped up to 18,600 over the past 2 days. Liver enzymes and lipase have all normalized. No dysuria hematuria. Referring Nikita. No shortness of breath or any chest pain with coughing. Note is or other obvious areas of infection. Exam GI: Other: Abdomen is soft and nondistended. Minimal tenderness to palpation. Objective Data Vital Signs Vital Signs: Vital Signs - 24 hr 06/18/23 14:00 06/18/23 20:13 06/18/23 20:20 Temperature 37.4 C 37.5 C Pulse Rate 106 H 105 H 105 H Respiratory Rate 18 20 Blood Pressure 132/82 132/76 Pulse Oximetry 94 97 Oxygen Delivery 06/19/23 08:13 06/19/23 06:25 06/19/23 08:41 Temperature 36.9 C Pulse Rate 103 H 105 H 104 H Respiratory Rate 20 Blood Pressure 137/83 Pulse Oximetry 97 98 Oxygen Delivery Room Air 06/19/23 08:00 Temperature Pulse Rate Respiratory Rate Blood Pressure Pulse Oximetry Oxygen Delivery Room Air Intake/Output Intake/Output: Intake & Output 06/16/23 06/17/23 06/18/23 06/19/23 23:59 23:59 23:59 23:59 Intake Total 1115.2 2175 3070 360 Balance 1115.2 2175 3070 360 Meds/Results Medications: Active Medications Generic Name Dose Route Start Last Admin Trade Name Freq PRN Reason Stop Dose Admin Acetaminophen 650 mg 06/13/23 01:13 06/17/23 10:25 Acetaminophen 325 Mg Tablet PO 650 mg Q4H PRN Administration Mild Pain (1-3) or Fever Hydrocodone Bitart/Acetaminophen 1 tab 06/16/23 12:41 06/19/23 06:14 Hydrocodone/Acetaminophen (*Crx) 5-325 Mg Tablet PO 1 tab Q4H PRN Administration Pain Rated 4-6 Hydrocodone Bitart/Acetaminophen 1 tab 06/16/23 13:44 06/19/23 03:07 Hydrocodone/Acetaminophen (*Crx)
--- NOTE | 2023-06-19 10:38 | PM.IMPN ---
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 Status: Acute (5) Post-ERCP acute pancreatitis: Code(s): K91.89 - Other postprocedural complications and disorders of digestive system; K85.90 - Acute pancreatitis without necrosis or infection, unspecified Status: Acute (6) Choledocholithiasis: Code(s): K80.50 - Calculus of bile duct without cholangitis or cholecystitis without obstruction Status: Acute (7) Cholelithiasis: Code(s): K80.20 - Calculus of gallbladder without cholecystitis without obstruction Status: Acute Plan #choledocholithiasis -on original imaging appeared to have choledocholithasis, on ERCP no stone was found, possibly stone passed on its own -ABx: rocephin, flagyl completed 5 days, restarted 06/18 after being off for 2 days -GI ppx: protonix -will need cholecystectomy outpatient after treating acute thrombus #Post-ERCP pancreatitis -downtrending enzymes, lipase normalized -will try lidocaine patch for her back pain, but it may just be referred pancreatic pain - Rising leukocytosis up to 18,000, restarting antibiotics Rocephin, Flagyl - CT abdomen pelvis with IV contrast ordered by surgeon to work up the leukocytosis to rule out a pancreatic pseudocyst - discussed case with surgical team plan for abdominal CT scan to help guide treatment plan #Right hepatic vein thrombus -DVT in right hepatic vein into IVC, seen on MRCP -treating with eliquis, currently on loading dose # electrolyte imbalances - patient has numerous electrolyte imbalances, will add Ensure to her diet - continue replete electrolytes as needed - calcium 7.4 - K 3.9 - phos 1.5, giving kphos packet - Mg 2.8 - repeat labs in AM #chronic conditions -sinus tachycardia: continue home labetolol Diet: low fat diet DVT ppx:?Eliquis Code status: Full code Disposition:?home tomorrow pending normal CT scan Subjective Date/time seen: 06/19/23 10:38 Interval history: patient seen examined. Yesterday she had increased abdominal which may be worsening as her diet is being advanced. Her leukocytosis is rising and surgeon would like a CT abdomen pelvis with IV contrast. I had discontinue antibiotics 2 days prior and since stopping antibiotics the leukocytosis only worsening, I will resume Rocephin and Flagyl. Leukocytosis may be infectious as opposed to reactive. it is hard to say as she is clinically improving. Will continue to replace electrolytes, phosphorus low, giving K-Phos. patient has fever, chills, nausea, vomiting, diarrhea. She endorses epigastric abdominal pain. Review of Systems Review of Systems: All systems reviewed & are unremarkable except as noted in HPI and below Exam Narrative: - GENERAL:? Pleasant woman in no acute distress - EYES: EOMI. Anicteric. - HENT: Moist mucous membranes. - LUNGS: Clear to auscultation bilaterally, no wheezing, rhonchi, or rales. - CARDIOVASCULAR: Regular rate and rhythm. No murmur. No JVD. - ABDOMEN: Soft, nondistended, mildly tender in epigastric region - EXTREMITIES: No edema. Peripheral pulses 2+. Non-tender. - NEUROLOGIC: No focal neurological deficits. CN II-XII grossly intact. - PSYCHIATRIC: Awake, Alert and oriented x 3. Appropriate mood and affect. - SKIN: No rashes or lesions. Warm. - LYMPH: No cervical lymphadenopathy. Objective Data Vital Signs Vital Signs: Vital Signs - 24 hr 06/18/23 14:00 06/18/23 20:13 06/18/23 20:20 Temperature 37.4 C 37.5 C Pulse Rate 106 H 105 H 105 H Respiratory Rate 18 20
--- NOTE | 2023-06-19 11:32 | PCNWS ---
Weekly nutritional screen. Patient is tolerating current diet with adequate intake. No weight loss reported. No nutritional needs at this time.
--- NOTE | 2023-06-19 14:30 | WPDPN ---
Progress Note: A&P Assessment and Plan (1) Post-ERCP acute pancreatitis: Code(s): K91.89 - Other postprocedural complications and disorders of digestive system; K85.90 - Acute pancreatitis without necrosis or infection, unspecified Status: Acute Assessment and Plan: Post ERCP pancreatitis. CT scan still shows acute inflammatory changes around the pancreas but no evidence of abscess or pseudocyst formation. Clinically she seems to be improving. White blood count is up to 18,000 with no real good obvious source. From a general surgery standpoint I feel she can probably be discharged when she is medically stable. She can follow-up see me in the office in 2 to 4 weeks to discuss an interval laparoscopic cholecystectomy for her residual cholelithiasis. She will need to stay on systemic anticoagulation with Eliquis for 6 months. Subjective Date/time seen: 06/19/23 14:30 Interval history: patient seems to feel little better today. Tolerating low fat diet. Pain in the abdomen continues to improve. White blood cell count increased to 18,[address] scan abdomen pelvis with IV contrast was performed. This showed acute inflammatory changes still around the previous without evidence of pseudocyst formation or abscess formation. Exam GI: Other: Abdomen is soft and nondistended. Some minimal diffuse tenderness a bit more tenderness around epigastric region of the abdomen. No guarding or peritoneal signs. Objective Data Vital Signs Vital Signs: Vital Signs - 24 hr 06/18/23 20:13 06/18/23 20:20 06/19/23 08:13 Temperature 37.5 C Pulse Rate 105 H 105 H 103 H Respiratory Rate 20 Blood Pressure 132/76 Pulse Oximetry 97 97 Oxygen Delivery Room Air 06/19/23 06:25 06/19/23 08:41 06/19/23 08:00 Temperature 36.9 C Pulse Rate 105 H 104 H Respiratory Rate 20 Blood Pressure 137/83 Pulse Oximetry 98 Oxygen Delivery Room Air 06/19/23 14:00 Temperature 38.3 C H Pulse Rate 104 H Respiratory Rate 20 Blood Pressure 128/75 Pulse Oximetry 97 Oxygen Delivery Intake/Output Intake/Output: Intake & Output 06/16/23 06/17/23 06/18/23 06/19/23 23:59 23:59 23:59 23:59 Intake Total 1115.2 2175 3070 560 Balance 1115.2 2175 3070 560 Meds/Results Medications: Active Medications Generic Name Dose Route Start Last Admin Trade Name Premq PRN Reason Stop Dose Admin Acetaminophen 650 mg 06/13/23 01:13 06/17/23 10:25 Acetaminophen 325 Mg Tablet PO 650 mg Q4H PRN Administration Mild Pain (1-3) or Fever Hydrocodone Bitart/Acetaminophen 1 tab 06/16/23 12:41 06/19/23 10:22 Hydrocodone/Acetaminophen (*Crx) 5-325 Mg Tablet PO 1 tab Q4H PRN Administration Pain Rated 4-6 Hydrocodone Bitart/Acetaminophen 1 tab 06/16/23 13:44 06/19/23 12:37 Hydrocodone/Acetaminophen (*Crx) 10-325 Mg Tablet PO 1 tab Q6H PRN Administration Pain Rated 7-10 Apixaban 10 mg 06/16/23 21:00 06/19/23 08:41 Apixaban 5 Mg Tablet PO 06/23/23 09:01 10 mg Q12HR KSENIA Administration Apixaban 5 mg 06/23/23 21:00 Apixaban 5 Mg Tablet PO Q12HR KSENIA Calcium Carbonate 500 mg 06/18/23 17:00 06/19/23 08:40 Calcium/Vitamin D 500 Mg/5 Mcg (200 I.U.) Tablet PO 500 mg BIDWM KSENIA Administration Dicyclomine HCl 20 mg 06/18/23 18:25 06/19/23 10:22 Dicyclomine Hcl 10 Mg Capsule PO 20 mg QID PRN Administration Abdominal Cramping Hydromorphone HCl 0.5 mg 06/15/23 21:07 06/18/23 21:29 Hydromorphone Hcl Inj (*Crx) 1 Mg/Ml Syr IV PUSH 0.5 mg Q3H PRN Administration Pain Rated 7-10 Metronidazole 500 mg in 100 mls @ 100 mls/hr 06/19/23 07:35 06/19/23 10:06 Flagyl 500 Mg/Iso Soln 100 Ml IVPB Infused Q8HR KSENIA Infusion Ceftriaxone Sodium 2 gm in 100 mls @ 200 mls/hr 06/19/23 08:00 06/19/23 10:07 Rocephin 2 Gm/Ns 100 Ml IVPB Infused Q24H KSENIA Infusion Labetalol HCl 100 mg 06/14/23 21:00 06/19/23 08:
--- NOTE | 2023-06-19 15:57 | WPDGIPROGNO ---
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 Status: Acute Assessment and Plan: new finding by MRCP transitioned to eliquis (2) Acute thrombosis of inferior vena cava: Code(s): I82.220 - Acute embolism and thrombosis of inferior vena cava Status: Acute (3) Post-ERCP acute pancreatitis: Code(s): K91.89 - Other postprocedural complications and disorders of digestive system; K85.90 - Acute pancreatitis without necrosis or infection, unspecified Status: Acute Assessment and Plan: normal lipase and lft down/stable tolerating low fat diet noted more leukocytosis and low grade fever, this also could be from pancreatitis, repeat CT scan no complications other than similar pancreatitis started on abx empirically (4) Choledocholithiasis: Code(s): K80.50 - Calculus of bile duct without cholangitis or cholecystitis without obstruction Status: Acute Assessment and Plan: s/p ercp with sphincterotomy (stone had already passed), MRCP after ERCP no bile duct stone jessica postponed, will need follow-up with surgery currently on eliquis (5) RUQ pain: Code(s): R10.11 - Right upper quadrant pain Status: Acute Assessment and Plan: no surgery given acute thrombus requiring less pain meds (worsened after pancreatitis) Subjective Date/time seen: 06/19/23 15:57 Interval history: pain better noted more leukocytosis and low grade fever, repeat CT scan pancreatitis, no other complications. she is eating more Review of Systems Review of Systems: All systems reviewed & are unremarkable except as noted in HPI and below Exam Const: General: comfortable and no acute distress Orientation/consciousness: patient oriented x3 HENMT: Face/Nose/Sinus: Normal nares present Eyes: Sclera: sclerae normal Neck: Neck: supple Resp: Effort & Inspection: normal respiratory effort Cardio: Rate: regular rate GI: Inspection: other (mildly distended) GI Palp: Yes Soft to palpation, Yes Tenderness to palpation present (GI) (epigastric and LUQ), Yes Guarding due to palpation present (GI) (epigastric area) and No Rebound tenderness present Auscultation: Hypoactive bowel sounds present Skin: General skin exam: normal color Neuro: Speech: normal speech Motor exam (neuro): 5/5 motor strength present throughout Extrem: General: normal to inspection Psych: Mental Status: mental status grossly normal Objective Data Vital Signs Vital Signs: Vital Signs - 24 hr 06/18/23 20:13 06/18/23 20:20 06/19/23 08:13 Temperature 99.5 F Pulse Rate 105 H 105 H 103 H Respiratory Rate 20 Blood Pressure 132/76 Pulse Oximetry 97 97 Oxygen Delivery Room Air 06/19/23 06:25 06/19/23 08:41 06/19/23 08:00 Temperature 98.4 F Pulse Rate 105 H 104 H Respiratory Rate 20 Blood Pressure 137/83 Pulse Oximetry 98 Oxygen Delivery Room Air 06/19/23 14:00 06/19/23 14:31 Temperature 101 F H 98.7 F Pulse Rate 104 H Respiratory Rate 20 Blood Pressure 128/75 Pulse Oximetry 97 Oxygen Delivery Intake/Output Intake/Output: Intake & Output 06/16/23 06/17/23 06/18/23 06/19/23 23:59 23:59 23:59 23:59 Intake Total 1115.2 2175 3070 560 Balance 1115.2 2175 3070 560 Meds/Results Medications: Active Medications Generic Name Dose Route Start Last Admin Trade Name Freq PRN Reason Stop Dose Admin Acetaminophen 650 mg 06/13/23 01:13 06/17/23 10:25 Acetaminophen 325 Mg Tablet PO 650 mg Q4H PRN Administration Mild Pain (1-3) or Fever Hydrocodone Bitart/Acetaminophen 1 tab 06/16/23 12:41 06/19/23 10:22 Hydrocodone/Acetaminophen (*Crx) 5-325 Mg Tablet PO 1 tab Q4H PRN Administration Pain Rated 4-6 Hydrocodone Bitart/Acetaminophen 1 tab 06/16/23 13:44 06/19/23 12:37 Hydrocodone/Acetaminophen (*Crx) 10-325 Mg Tablet PO 1 tab Q6H PRN Administration
[2023-06-19] MEDS: IBUPROFEN 400 MG TABLET 800 MG PO (16:48)
[2023-06-19 19:11] LABS: Appearance Urine Clear (Clear); Bacteria Urine None Seen /hpf; Bilirubin Urine Negative (Negative); Blood Urine 1+ (Negative); Color Urine Yellow (Yellow); Glucose Urine UA Negative (Negative); Ketones Urine Negative (Negative); Leukocyte Esterase Ur Negative LEU/UL (Negative); Nitrate Urine Negative (Negative); Non Pathogenic Casts 0-2; Protein Urine Negative (Negative); RBC Urine 21-50 /hpf (0-2); Specific Grav Ur 1.021 (1.001-1.035); Squamous Epithelial Cell Urine None Seen /hpf (Few); WBC Urine 0-5 /hpf (0-3)
[2023-06-19 19:24] LABS: Add Urine Microscopic? YES
[2023-06-19] MEDS: SENNOSIDES 8.6 MG TABLET 17.2 MG PO (20:30)
[2023-06-20] MEDS: metroNIDAZOLE 500 MG/ISO 100ML 500 MG/100 ML BAG 100 MG IVPB ×3 (05:47→21:06)
[2023-06-20] MEDS: HYDROcodone/acetaminophen (*CRX) 10-325 MG TABLET 1 TAB PO (05:51)
[2023-06-20 06:00] VITALS: BP 112/68; PULSE 105; RESP 18; TEMP 36.6; O2SAT 96
[2023-06-20 06:36] LABS: Hematocrit 31.9 % (37.0-47.0); Hemoglobin 10.1 g/dL (12.0-15.0); Mean Corpuscular HGB Conc 31.7 g/dl (32-36); Mean Corpuscular Hemoglobin 25.7 pg (26-34); Mean Corpuscular Volume 81.2 fl (80-100); Mean Platelet Volume 9.1 fl (7.4-10.4); Platelet Count Result 462 k/mm3 (150-375); Red Blood Count 3.93 M/mm3 (4.2-5.4); Red Cell Distribution Width 15.9 % (11.5-14.5); White Blood Count 20.6 K/mm3 (4.5-10.0)
[2023-06-20 06:55] LABS: Alanine Aminotransferase 59 U/L (6-35); Albumin Level 3.1 g/dL (3.5-5.1); Alkaline Phosphatase 115 U/L (38-126); Anion Gap 4 mmol/L (4-12); Aspartate Amino Transferase 37 U/L (14-36); Bilirubin,Total 0.5 mg/dL (0.2-1.3); Blood Urea Nitrogen 5 mg/dL (7-17); Calcium 7.8 mg/dL (8.4-10.2); Carbon Dioxide 23 mmol/L (22-30); Chloride 103 mmol/L (98-107); Estimated CRCL calculation 186 ml/min; Estimated Glomerular Filt Rate > 60; Glucose 125 mg/dL (65-110); Magnesium 2.5 mg/dL (1.6-2.3); Phosphorus 1.9 mg/dL (2.5-4.5); Potassium 3.9 mmol/L (3.4-5.0); Sodium 130 mmol/L (137-145)
[2023-06-20 08:18] VITALS: PULSE 108
[2023-06-20] MEDS: polyethylene glycoL 3350 17 GM POWD.PACK PO (08:18)
[2023-06-20] MEDS: LABETALOL HCL 100 MG TABLET PO ×2 (08:18→20:36)
[2023-06-20] MEDS: PANTOPRAZOLE 40 MG TABLET PO (08:19)
[2023-06-20] MEDS: APIXABAN 5 MG TABLET 10 MG PO ×2 (08:19→20:36)
[2023-06-20] MEDS: CALCIUM/VITAMIN D 500 MG/5 MCG (200 I.U.) TABLET PO ×2 (08:19→16:36)
[2023-06-20] MEDS: cefTRIAXone 2 GM/NS 100 ML 2 GM/100 ML BAG IVPB (08:19)
[2023-06-20] MEDS: LIDOCAINE 5% PATCH 1 PATCH TRANSDERM (08:20)
[2023-06-20 09:04] VITALS: PULSE 109; O2SAT 97
--- NOTE | 2023-06-20 11:51 | WPDGIPROGNO ---
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 Status: Acute Assessment and Plan: new finding by MRCP transitioned to eliquis (2) Acute thrombosis of inferior vena cava: Code(s): I82.220 - Acute embolism and thrombosis of inferior vena cava Status: Acute (3) Post-ERCP acute pancreatitis: Code(s): K91.89 - Other postprocedural complications and disorders of digestive system; K85.90 - Acute pancreatitis without necrosis or infection, unspecified Status: Acute Assessment and Plan: normal lipase and lft down/stable tolerating low fat diet noted more leukocytosis, no more fever last 24h probably from pancreatitis, repeat CT scan no complications other than similar pancreatitis started on abx empirically hopefully home soon (4) Choledocholithiasis: Code(s): K80.50 - Calculus of bile duct without cholangitis or cholecystitis without obstruction Status: Acute Assessment and Plan: s/p ercp with sphincterotomy (stone had already passed), MRCP after ERCP no bile duct stone jessica postponed, will need follow-up with surgery currently on eliquis (5) RUQ pain: Code(s): R10.11 - Right upper quadrant pain Status: Acute Assessment and Plan: no surgery given acute thrombus requiring less pain meds (worsened after pancreatitis) Subjective Date/time seen: 06/20/23 11:51 Interval history: overall more comfortable, only using oral narcotics- she wonders if 7.5mg hydrocodone will be better than 5mg once she can go home eating more, still pain but tolerable Review of Systems Review of Systems: All systems reviewed & are unremarkable except as noted in HPI and below Exam Const: General: comfortable and no acute distress Orientation/consciousness: patient oriented x3 HENMT: Face/Nose/Sinus: Normal nares present Eyes: Sclera: sclerae normal Neck: Neck: supple Resp: Effort & Inspection: normal respiratory effort Cardio: Rate: regular rate GI: Inspection: other (mildly distended) GI Palp: Yes Soft to palpation, Yes Tenderness to palpation present (GI) (epigastric and LUQ) and No Rebound tenderness present Auscultation: normal bowel sounds Skin: General skin exam: normal color Neuro: Speech: normal speech Motor exam (neuro): 5/5 motor strength present throughout Extrem: General: normal to inspection Psych: Mental Status: mental status grossly normal Objective Data Vital Signs Vital Signs: Vital Signs - 24 hr 06/19/23 14:00 06/19/23 14:31 06/19/23 20:29 Temperature 101 F H 98.7 F Pulse Rate 104 H 105 H Respiratory Rate 20 Blood Pressure 128/75 Pulse Oximetry 97 Oxygen Delivery 06/19/23 20:49 06/20/23 06:00 06/20/23 08:18 Temperature 97.5 F L 97.8 F Pulse Rate 91 105 H 108 H Respiratory Rate 16 18 Blood Pressure 122/79 112/68 Pulse Oximetry 99 96 Oxygen Delivery 06/20/23 08:00 06/20/23 09:04 Temperature Pulse Rate 109 H Respiratory Rate Blood Pressure Pulse Oximetry 97 Oxygen Delivery Room Air Room Air Intake/Output Intake/Output: Intake & Output 06/17/23 06/18/23 06/19/23 06/20/23 23:59 23:59 23:59 23:59 Intake Total 2175 3070 1560 500 Output Total 200 Balance 2175 3070 1360 500 Meds/Results Medications: Active Medications Generic Name Dose Route Start Last Admin Trade Name Freq PRN Reason Stop Dose Admin Acetaminophen 650 mg 06/13/23 01:13 06/17/23 10:25 Acetaminophen 325 Mg Tablet PO 650 mg Q4H PRN Administration Mild Pain (1-3) or Fever Hydrocodone Bitart/Acetaminophen 1 tab 06/16/23 12:41 06/19/23 10:22 Hydrocodone/Acetaminophen (*Crx) 5-325 Mg Tablet PO 1 tab Q4H PRN Administration Pain Rated 4-6 Hydrocodone Bitart/Acetaminophen 1 tab 06/16/23 13:44 06/20/23 05:51 Hydrocodone/Acetaminophen (*Crx) 10-325 Mg Tablet PO 1 tab Q6H PRN Administration Tristian
--- NOTE | 2023-06-20 12:08 | PM.IMPN ---
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 Her electrolytes are improved status post replacement so we [place] [address] [place] and her platelets are elevated which supports an inflammatory state likely from her acute pancreatitis. She is however tolerating low-fat diet well. She denies cough blood cultures are so far negative and UA is negative. We will continue ceftriaxone and Flagyl which were restarted on 06/18 empirically for this leukocytosis. Continue to monitor this and we will also check a procalcitonin in the morning to help guide antibiotic management. Radha. Full code. Subjective Date/time seen: 06/20/23 12:08 Interval history: No acute overnight events. Patient's last BM was 2 days prior. She wonders if [place] 7.5 mg is better since the 5 does not quite do the job. Her left upper quadrant abdominal pain is improved. She denies nausea cough fever chest pain or diarrhea. Review of Systems Review of Systems: All systems reviewed & are unremarkable except as noted in HPI and below (Subjective) Exam Const: General: comfortable and no acute distress Other: A&O x3. Obese. Eyes: Pupils: Equal, round and reactive pupils present Neck: Neck: supple Resp: Effort & Inspection: normal respiratory effort Auscultation: clear to auscultation bilaterally Cardio: Rate: regular rate Rhythm: regular rhythm GI: GI Palp: Yes Soft to palpation and No Tenderness to palpation present (GI) Objective Data Vital Signs Vital Signs: Vital Signs - 24 hr 06/19/23 14:00 06/19/23 14:31 06/19/23 20:29 Temperature 101 F H 98.7 F Pulse Rate 104 H 105 H Respiratory Rate 20 Blood Pressure 128/75 Pulse Oximetry 97 Oxygen Delivery 06/19/23 20:49 06/20/23 06:00 06/20/23 08:18 Temperature 97.5 F L 97.8 F Pulse Rate 91 105 H 108 H Respiratory Rate 16 18 Blood Pressure 122/79 112/68 Pulse Oximetry 99 96 Oxygen Delivery 06/20/23 08:00 06/20/23 09:04 Temperature Pulse Rate 109 H Respiratory Rate Blood Pressure Pulse Oximetry 97 Oxygen Delivery Room Air Room Air Intake/Output Intake/Output: Intake & Output 06/17/23 06/18/23 06/19/23 06/20/23 23:59 23:59 23:59 23:59 Intake Total 2175 3070 1560 500 Output Total 200 Balance 2175 3070 1360 500 Meds/Results Medications: Active Medications Generic Name Dose Route Start Last Admin Trade Name Freq PRN Reason Stop Dose Admin Acetaminophen 650 mg 06/13/23 01:13 06/17/23 10:25 Acetaminophen 325 Mg Tablet PO 650 mg Q4H PRN Administration Mild Pain (1-3) or Fever Hydrocodone Bitart/Acetaminophen 1 tab 06/16/23 13:44 06/20/23 05:51 Hydrocodone/Acetaminophen (*Crx) 10-325 Mg Tablet PO 1 tab Q6H PRN Administration Pain Rated 7-10 Hydrocodone Bitart/Acetaminophen 1 tab 06/20/23 12:03 Hydrocodone/Acetaminophen (*Crx) 7.5-325 Mg Tablet PO Q6H PRN Pain Rated 4-6 Apixaban 10 mg 06/16/23 21:00 06/20/23 08:19 Apixaban 5 Mg Tablet PO 06/23/23 09
[2023-06-20] MEDS: HYDROcodone/acetaminophen (*CRX) 7.5-325 MG TABLET 1 TAB PO ×2 (12:28→18:50)
--- NOTE | 2023-06-20 12:49 | PM.PNGS ---
Progress Note: A&P Assessment and Plan (1) Post-ERCP acute pancreatitis: Code(s): K91.89 - Other postprocedural complications and disorders of digestive system; K85.90 - Acute pancreatitis without necrosis or infection, unspecified Status: Acute Assessment and Plan: cont supportive care, CT reviewed, exam largely benign, cont abx, follow leukocytosis, cont low fat diet (2) Choledocholithiasis with acute cholecystitis: Code(s): K80.42 - Calculus of bile duct with acute cholecystitis without obstruction Status: Acute Assessment and Plan: will need interval cholecystectomy in the future Subjective Subjective Date/Time Seen: 06/20/23 12:49 Interval history: feels ok, still c moderate abd pain, poor appetite Review of Systems Review of Systems: All systems reviewed & are unremarkable except as noted in HPI and below Exam Const: General: cooperative, comfortable and no acute distress Resp: Auscultation: clear to auscultation bilaterally Cardio: Rate: tachycardic Rhythm: regular rhythm GI: Inspection: normal to inspection and distended GI Palp: Yes abdominal tenderness, Yes Soft to palpation, Yes Tenderness to palpation present (GI), No Guarding due to palpation present (GI) and No Rigid due to palpation Objective Data Vital Signs Vital Signs: Vital Signs - 24 hr 06/19/23 14:00 06/19/23 14:31 06/19/23 20:29 Temperature 38.3 C H 37.1 C Pulse Rate 104 H 105 H Respiratory Rate 20 Blood Pressure 128/75 Pulse Oximetry 97 Oxygen Delivery 06/19/23 20:49 06/20/23 06:00 06/20/23 08:18 Temperature 36.4 C L 36.6 C Pulse Rate 91 105 H 108 H Respiratory Rate 16 18 Blood Pressure 122/79 112/68 Pulse Oximetry 99 96 Oxygen Delivery 06/20/23 08:00 06/20/23 09:04 Temperature Pulse Rate 109 H Respiratory Rate Blood Pressure Pulse Oximetry 97 Oxygen Delivery Room Air Room Air Intake/Output Intake/Output: Intake & Output 06/17/23 06/18/23 06/19/23 06/20/23 23:59 23:59 23:59 23:59 Intake Total 2175 3070 1560 980 Output Total 200 Balance 2175 3070 1360 980 Meds/Results Medications: Active Medications Generic Name Dose Route Start Last Admin Trade Name Freq PRN Reason Stop Dose Admin Acetaminophen 650 mg 06/13/23 01:13 06/17/23 10:25 Acetaminophen 325 Mg Tablet PO 650 mg Q4H PRN Administration Mild Pain (1-3) or Fever Hydrocodone Bitart/Acetaminophen 1 tab 06/16/23 13:44 06/20/23 05:51 Hydrocodone/Acetaminophen (*Crx) 10-325 Mg Tablet PO 1 tab Q6H PRN Administration Pain Rated 7-10 Hydrocodone Bitart/Acetaminophen 1 tab 06/20/23 12:03 06/20/23 12:28 Hydrocodone/Acetaminophen (*Crx) 7.5-325 Mg Tablet PO 1 tab Q6H PRN Administration Pain Rated 4-6 Apixaban 10 mg 06/16/23 21:00 06/20/23 08:19 Apixaban 5 Mg Tablet PO 06/23/23 09:01 10 mg Q12HR KSENIA Administration Apixaban 5 mg 06/23/23 21:00 Apixaban 5 Mg Tablet PO Q12HR KSENIA Calcium Carbonate 500 mg 06/18/23 17:00 06/20/23 08:19 Calcium/Vitamin D 500 Mg/5 Mcg (200 I.U.) Tablet PO 500 mg BIDWM KSENIA Administration Dicyclomine HCl 20 mg 06/18/23 18:25 06/19/23 10:22 Dicyclomine Hcl 10 Mg Capsule PO 20 mg QID PRN Administration Abdominal Cramping Hydromorphone HCl 0.5 mg 06/15/23 21:07 06/18/23 21:29 Hydromorphone Hcl Inj (*Crx) 1 Mg/Ml Syr IV PUSH 0.5 mg Q3H PRN Administration Pain Rated 7-10 Metronidazole 500 mg in 100 mls @ 100 mls/hr 06/19/23 07:35 06/20/23 06:47 Flagyl 500 Mg/Iso Soln 100 Ml IVPB Infused Q8HR KSENIA Infusion Ceftriaxone Sodium 2 gm in 100 mls @ 200 mls/hr 06/19/23 08:00 06/20/23 09:00 Rocephin 2 Gm/Ns 100 Ml IVPB Infused Q24H KSENIA Infusion Labetalol HCl 100 mg 06/14/23 21:00 06/20/23 08:18 Labetalol Hcl 100 Mg Tablet PO 100 mg Q12H KSENIA Administration Lidocaine 1 patch 06/15/23 18:31 06/20/23 08:20 Lidocaine 5% Pat
[2023-06-20 14:00] VITALS: BP 110/62; PULSE 102; RESP 16; TEMP 37.9; O2SAT 99
[2023-06-20 20:27] VITALS: BP 117/63; PULSE 113; RESP 12; TEMP 37.6; O2SAT 95
[2023-06-20 20:36] VITALS: PULSE 113
[2023-06-20] MEDS: SENNOSIDES 8.6 MG TABLET 17.2 MG PO (20:36)
[2023-06-21] VITALS (9 sets, daily range): BP systolic 124–127; BP diastolic 70–80; PULSE 99–110; RESP 14–20; TEMP 36.8–38.6; O2SAT 95–98
[2023-06-21] MEDS: HYDROcodone/acetaminophen (*CRX) 7.5-325 MG TABLET 1 TAB PO ×3 (01:29→19:40)
[2023-06-21 05:51] LABS: Basophils Absolute Auto 0.1 K/mm3 (0.0-0.1); Basophils Percent Auto 0.5 % (0.2-1.2); Eosinophils Absolute Auto 0.2 K/mm3 (0-0.3); Eosinophils Percent Auto 1.1 % (0-4.4); Hematocrit 32.2 % (37.0-47.0); Immature Granulocyte Absolute 1.28 K/mm3 (0.00-0.031); Immature Granulocyte Percent A 5.8 % (0-0.5); Lymphocytes Absolute Auto 1.48 K/mm3 (0.9-3.2); Lymphocytes Percent Auto 6.7 % (18.3-44.2); Mean Corpuscular HGB Conc 31.1 g/dl (32-36); Mean Corpuscular Hemoglobin 25.6 pg (26-34); Mean Corpuscular Volume 82.4 fl (80-100); Mean Platelet Volume 9.3 fl (7.4-10.4); Monocytes Percent Auto 8.9 % (2.6-8.5); Neutrophils Absolute Auto 16.9 K/mm3 (1.3-6.7); Platelet Count Result 505 k/mm3 (150-375); Red Blood Count 3.91 M/mm3 (4.2-5.4); Red Cell Distribution Width 16.1 % (11.5-14.5)
[2023-06-21 06:04] LABS: Magnesium 2.3 mg/dL (1.6-2.3); Phosphorus 2.9 mg/dL (2.5-4.5)
[2023-06-21 06:33] LABS: Procalcitonin 0.3 ng/mL
[2023-06-21] MEDS: metroNIDAZOLE 500 MG/ISO 100ML 500 MG/100 ML BAG 100 MG IVPB ×3 (06:45→20:49)
[2023-06-21] MEDS: APIXABAN 5 MG TABLET 10 MG PO ×2 (08:32→19:40)
[2023-06-21] MEDS: CALCIUM/VITAMIN D 500 MG/5 MCG (200 I.U.) TABLET PO ×2 (08:32→17:06)
[2023-06-21] MEDS: cefTRIAXone 2 GM/NS 100 ML 2 GM/100 ML BAG IVPB (08:32)
[2023-06-21] MEDS: LABETALOL HCL 100 MG TABLET PO ×2 (08:32→19:41)
[2023-06-21] MEDS: PANTOPRAZOLE 40 MG TABLET PO (08:32)
--- NOTE | 2023-06-21 10:36 | PM.PNGS ---
Progress Note: A&P Assessment and Plan (1) Post-ERCP acute pancreatitis: Code(s): K91.89 - Other postprocedural complications and disorders of digestive system; K85.90 - Acute pancreatitis without necrosis or infection, unspecified Status: Acute Assessment and Plan: exam improved, ayla diet, cont supportive care (2) Choledocholithiasis with acute cholecystitis: Code(s): K80.42 - Calculus of bile duct with acute cholecystitis without obstruction Status: Acute Assessment and Plan: will need interval jessica (3) Leukocytosis: Code(s): D72.829 - Elevated white blood cell count, unspecified Status: Acute Assessment and Plan: cont to be elevated, likely secondary to pancreatitis, exam benign, cont to follow Subjective Subjective Date/Time Seen: 06/21/23 10:36 Interval history: feels much better, +bowel fxn Review of Systems Review of Systems: All systems reviewed & are unremarkable except as noted in HPI and below Exam Const: General: cooperative, comfortable and no acute distress Resp: Auscultation: clear to auscultation bilaterally Cardio: Rate: tachycardic Rhythm: regular rhythm GI: Inspection: normal to inspection and non-distended GI Palp: Yes abdominal tenderness, Yes Soft to palpation, Yes Tenderness to palpation present (GI) and No Guarding due to palpation present (GI) Objective Data Vital Signs Vital Signs: Vital Signs - 24 hr 06/20/23 14:00 06/20/23 20:27 06/20/23 20:36 Temperature 37.9 C H 37.6 C H Pulse Rate 102 H 113 H 113 H Respiratory Rate 16 12 Blood Pressure 110/62 117/63 Pulse Oximetry 99 95 06/21/23 05:42 Temperature 36.8 C Pulse Rate 106 H Respiratory Rate 14 Blood Pressure 127/70 Pulse Oximetry 97 Intake/Output Intake/Output: Intake & Output 06/18/23 06/19/23 06/20/23 06/21/23 23:59 23:59 23:59 23:59 Intake Total 3070 1560 2690 1030 Output Total 200 Balance 3070 1360 2690 1030 Meds/Results Medications: Active Medications Generic Name Dose Route Start Last Admin Trade Name Freq PRN Reason Stop Dose Admin Acetaminophen 650 mg 06/13/23 01:13 06/17/23 10:25 Acetaminophen 325 Mg Tablet PO 650 mg Q4H PRN Administration Mild Pain (1-3) or Fever Hydrocodone Bitart/Acetaminophen 1 tab 06/16/23 13:44 06/20/23 05:51 Hydrocodone/Acetaminophen (*Crx) 10-325 Mg Tablet PO 1 tab Q6H PRN Administration Pain Rated 7-10 Hydrocodone Bitart/Acetaminophen 1 tab 06/20/23 12:03 06/21/23 08:32 Hydrocodone/Acetaminophen (*Crx) 7.5-325 Mg Tablet PO 1 tab Q6H PRN Administration Pain Rated 4-6 Apixaban 10 mg 06/16/23 21:00 06/21/23 08:32 Apixaban 5 Mg Tablet PO 06/23/23 09:01 10 mg Q12HR KSENIA Administration Apixaban 5 mg 06/23/23 21:00 Apixaban 5 Mg Tablet PO Q12HR KSENIA Calcium Carbonate 500 mg 06/18/23 17:00 06/21/23 08:32 Calcium/Vitamin D 500 Mg/5 Mcg (200 I.U.) Tablet PO 500 mg BIDWM KSENIA Administration Dicyclomine HCl 20 mg 06/18/23 18:25 06/19/23 10:22 Dicyclomine Hcl 10 Mg Capsule PO 20 mg QID PRN Administration Abdominal Cramping Hydromorphone HCl 0.5 mg 06/15/23 21:07 06/18/23 21:29 Hydromorphone Hcl Inj (*Crx) 1 Mg/Ml Syr IV PUSH 0.5 mg Q3H PRN Administration Pain Rated 7-10 Metronidazole 500 mg in 100 mls @ 100 mls/hr 06/19/23 07:35 06/21/23 06:45 Flagyl 500 Mg/Iso Soln 100 Ml IVPB 100 mls/hr Q8HR KSENIA Administration Ceftriaxone Sodium 2 gm in 100 mls @ 200 mls/hr 06/19/23 08:00 06/21/23 08:32 Rocephin 2 Gm/Ns 100 Ml IVPB 200 mls/hr Q24H KSENIA Administration Labetalol HCl 100 mg 06/14/23 21:00 06/21/23 08:32 Labetalol Hcl 100 Mg Tablet PO 100 mg Q12H KSENIA Administration Lidocaine 1 patch 06/15/23 18:31 06/21/23 08:33 Lidocaine 5% Patch TRANSDERM Not Given DAILY [facility] Ondansetron HCl 4 mg 06/12/23 07:41 06/16/23 18:08 Ondansetron Inj 4 Mg/2 Ml Vial IV
--- NOTE | 2023-06-21 11:20 | PM.IMPN ---
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 Loose brown colored diarrhea. Senokot discontinued. Check stool for C diff. Leukocytosis again elevated slightly from the day prior now 22,000. Procalcitonin unremarkable. She is on ceftriaxone and Flagyl and this still appears to be inflammatory state due to acute pancreatitis. Continue the low-fat diet and continue to trend procalcitonin and the white count. Blood cultures are so far negative. UA negative. Abdominal exam is benign otherwise and CT abdomen pelvis with contrast on 06/18 demonstrating acute interstitial pancreatitis with cholelithiasis small volume of ascites and small pleural effusions. She appears clinically well at the moment and has no complaints. FEN: Saline lock IV. Low-fat diet. GI prophylaxis: Protonix DVT prophylaxis: Eliquis started this admission Lines: Peripheral IV Code Status: Full code Dispo: Stable. Subjective Date/time seen: 06/21/23 11:20 Interval history: No acute overnight events. Patient reports constipation has now turned into diarrhea with 3 loose stool since last night. Her abdominal pain is much improved and she is tolerating diet. She denies cough fever shortness of breath or chest pain. Review of Systems Review of Systems: All systems reviewed & are unremarkable except as noted in HPI and below (Subjective) Exam Const: General: comfortable and no acute distress Other: Obese. A&O x3. HENMT: Mouth: Yes moist mucous membranes Eyes: Pupils: Equal, round and reactive pupils present Resp: Effort & Inspection: normal respiratory effort Auscultation: clear to auscultation bilaterally Cardio: Rate: regular rate Rhythm: regular rhythm GI: Inspection: non-distended GI Palp: Yes Soft to palpation and No Tenderness to palpation present (GI) Auscultation: normal bowel sounds Extrem: General: no edema Objective Data Vital Signs Vital Signs: Vital Signs - 24 hr 06/20/23 14:00 06/20/23 20:27 06/20/23 20:36 Temperature 100.2 F H 99.7 F H Pulse Rate 102 H 113 H 113 H Respiratory Rate 16 12 Blood Pressure 110/62 117/63 Pulse Oximetry 99 95 Oxygen Delivery 06/21/23 05:42 06/21/23 08:00 Temperature 98.3 F Pulse Rate 106 H 106 H Respiratory Rate 14 14 Blood Pressure 127/70 Pulse Oximetry 97 97 Oxygen Delivery Room Air Intake/Output Intake/Output: Intake & Output 06/18/23 06/19/23 06/20/23 06/21/23 23:59 23:59 23:59 23:59 Intake Total 3070 1560 2690 1030 Output Total 200 Balance 3070 1360 2690 1030 Meds/Results Medications: Active Medications Generic Name Dose Route Start Last Admin Trade Name Freq PRN Reason Stop Dose Admin Acetaminophen 650 mg 06/13/23 01:13 06/17/23 10:25 Acetaminophen 325 Mg Tablet PO 650 mg Q4H PRN Administration Mild Pain (1-3) or Fever Hydrocodone Bitart/Acetaminophen 1 tab 06/16/23 13:44 06/20/23 05:51 Hydrocodone/Acetaminophen (*Crx) 10-325 Mg Tablet PO 1 tab Q6H PRN Administration Pain Rated 7-10 Hydrocodone Bitart/Acetaminophen 1 tab
[2023-06-21] MEDS: ACETAMINOPHEN 325 MG TABLET 650 MG PO ×2 (14:30→17:47)
--- NOTE | 2023-06-21 14:43 | WPDGIPROGNO ---
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 Status: Acute Assessment and Plan: new finding by MRCP she is currently on eliquis (2) Post-ERCP acute pancreatitis: Code(s): K91.89 - Other postprocedural complications and disorders of digestive system; K85.90 - Acute pancreatitis without necrosis or infection, unspecified Status: Acute Assessment and Plan: tolerating low fat diet and clinically much better still leukocytosis but most likely is from pancreatitis, repeat CT scan few days ago no complications other than similar pancreatitis started on abx empirically I think she can go home tomorrow (3) Choledocholithiasis: Code(s): K80.50 - Calculus of bile duct without cholangitis or cholecystitis without obstruction Status: Acute Assessment and Plan: s/p ercp with sphincterotomy (stone had already passed), MRCP after ERCP no bile duct stone jessica postponed, will need follow-up with surgery currently on eliquis (4) RUQ pain: Code(s): R10.11 - Right upper quadrant pain Status: Acute Assessment and Plan: no surgery given acute thrombus requiring less pain meds, now only orally Subjective Date/time seen: 06/21/23 14:43 Interval history: she is slowly feeling better, she has not used iv pain meds for days only norco 7.5mg as needed tolerating diet and pain has improved Review of Systems Review of Systems: All systems reviewed & are unremarkable except as noted in HPI and below Exam Const: General: comfortable and no acute distress Other: Obese. A&O x3. HENMT: Mouth: Yes moist mucous membranes Eyes: Sclera: sclerae normal Neck: Neck: supple Resp: Effort & Inspection: normal respiratory effort Auscultation: clear to auscultation bilaterally Cardio: Rate: regular rate Rhythm: regular rhythm GI: Inspection: non-distended GI Palp: Yes Soft to palpation and No Tenderness to palpation present (GI) Auscultation: normal bowel sounds Skin: General skin exam: normal color Neuro: Speech: normal speech Motor exam (neuro): 5/5 motor strength present throughout Extrem: General: no edema Psych: Mental Status: mental status grossly normal Objective Data Vital Signs Vital Signs: Vital Signs - 24 hr 06/20/23 20:27 06/20/23 20:36 06/21/23 05:42 Temperature 99.7 F H 98.3 F Pulse Rate 113 H 113 H 106 H Respiratory Rate 12 14 Blood Pressure 117/63 127/70 Pulse Oximetry 95 97 Oxygen Delivery 06/21/23 08:00 06/21/23 13:46 06/21/23 14:30 Temperature 100.7 F H 101.0 F H Pulse Rate 106 H 105 H Respiratory Rate 14 20 Blood Pressure 124/80 Pulse Oximetry 97 95 Oxygen Delivery Room Air 06/21/23 14:30 Temperature 101.0 F H Pulse Rate Respiratory Rate Blood Pressure Pulse Oximetry Oxygen Delivery Intake/Output Intake/Output: Intake & Output 06/18/23 06/19/23 06/20/23 06/21/23 23:59 23:59 23:59 23:59 Intake Total 3070 1560 2690 1610 Output Total 200 Balance 3070 1360 2690 1610 Meds/Results Medications: Active Medications Generic Name Dose Route Start Last Admin Trade Name Freq PRN Reason Stop Dose Admin Acetaminophen 650 mg 06/13/23 01:13 06/21/23 14:30 Acetaminophen 325 Mg Tablet PO 650 mg Q4H PRN Administration Mild Pain (1-3) or Fever Hydrocodone Bitart/Acetaminophen 1 tab 06/16/23 13:44 06/20/23 05:51 Hydrocodone/Acetaminophen (*Crx) 10-325 Mg Tablet PO 1 tab Q6H PRN Administration Pain Rated 7-10 Hydrocodone Bitart/Acetaminophen 1 tab 06/20/23 12:03 06/21/23 08:32 Hydrocodone/Acetaminophen (*Crx) 7.5-325 Mg Tablet PO 1 tab Q6H PRN Administration Pain Rated 4-6 Apixaban 10 mg 06/16/23 21:00 06/21/23 08:32 Apixaban 5 Mg Tablet PO 06/23/23 09:01 10 mg Q12HR KSENIA Administration Apixaban 5 mg 06/23/23 21:00 Apixaban 5 Mg Tablet PO Q12HR KSENIA Favio
[2023-06-21 18:36] LABS: Toxigenic C. Diff NEGATIVE (NEGATIVE)
[2023-06-22] VITALS (10 sets, daily range): BP systolic 122–138; BP diastolic 65–78; PULSE 103–106; RESP 14–18; TEMP 36.7–39.4; O2SAT 97–100
[2023-06-22] MEDS: HYDROcodone/acetaminophen (*CRX) 7.5-325 MG TABLET 1 TAB PO ×3 (04:08→22:36)
[2023-06-22 05:59] LABS: Basophils Absolute Auto 0.1 K/mm3 (0.0-0.1); Basophils Percent Auto 0.5 % (0.2-1.2); Eosinophils Absolute Auto 0.2 K/mm3 (0-0.3); Eosinophils Percent Auto 0.8 % (0-4.4); Hematocrit 31.6 % (37.0-47.0); Hemoglobin 9.8 g/dL (12.0-15.0); Immature Granulocyte Absolute 1.24 K/mm3 (0.00-0.031); Immature Granulocyte Percent A 5.5 % (0-0.5); Lymphocytes Absolute Auto 1.21 K/mm3 (0.9-3.2); Lymphocytes Percent Auto 5.4 % (18.3-44.2); Mean Corpuscular Hemoglobin 25.5 pg (26-34); Mean Corpuscular Volume 82.3 fl (80-100); Mean Platelet Volume 9.3 fl (7.4-10.4); Monocytes Absolute Auto 1.9 K/mm3 (0.1-0.6); Monocytes Percent Auto 8.4 % (2.6-8.5); Neutrophils Absolute Auto 17.8 K/mm3 (1.3-6.7); Neutrophils Percent Auto 79.4 % (45.5-73.1); Platelet Count Result 564 k/mm3 (150-375); Red Blood Count 3.84 M/mm3 (4.2-5.4); Red Cell Distribution Width 16.1 % (11.5-14.5); White Blood Count 22.4 K/mm3 (4.5-10.0)
[2023-06-22 06:06] LABS: Anion Gap 7 mmol/L (4-12); Blood Urea Nitrogen 6 mg/dL (7-17); Calcium 8.1 mg/dL (8.4-10.2); Carbon Dioxide 22 mmol/L (22-30); Chloride 102 mmol/L (98-107); Estimated CRCL calculation 153 ml/min; Estimated Glomerular Filt Rate > 60; Glucose 98 mg/dL (65-110); Magnesium 2.2 mg/dL (1.6-2.3); Potassium 4.1 mmol/L (3.4-5.0); Sodium 131 mmol/L (137-145)
[2023-06-22] MEDS: metroNIDAZOLE 500 MG/ISO 100ML 500 MG/100 ML BAG 100 MG IVPB ×3 (06:44→22:37)
[2023-06-22] MEDS: LIDOCAINE 5% PATCH 1 PATCH TRANSDERM (08:25)
[2023-06-22] MEDS: PANTOPRAZOLE 40 MG TABLET PO (08:26)
[2023-06-22] MEDS: CALCIUM/VITAMIN D 500 MG/5 MCG (200 I.U.) TABLET PO ×2 (08:26→16:02)
[2023-06-22] MEDS: APIXABAN 5 MG TABLET 10 MG PO ×2 (08:26→20:42)
[2023-06-22] MEDS: LABETALOL HCL 100 MG TABLET PO ×2 (08:26→20:40)
[2023-06-22] MEDS: polyethylene glycoL 3350 17 GM POWD.PACK PO (08:26)
[2023-06-22] MEDS: cefTRIAXone 2 GM/NS 100 ML 2 GM/100 ML BAG IVPB (08:26)
[2023-06-22 09:14] LABS: Procalcitonin 0.3 ng/mL
--- NOTE | 2023-06-22 12:42 | PM.IMPN ---
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 Loose brown colored diarrhea. Senokot discontinued. Check stool for C diff. Leukocytosis again elevated slightly from the day prior now 22,000. Procalcitonin unremarkable. She is on ceftriaxone and Flagyl and this still appears to be inflammatory state due to acute pancreatitis. Continue the low-fat diet and continue to trend procalcitonin and the white count. Blood cultures are so far negative. UA negative. Abdominal exam is benign otherwise and CT abdomen pelvis with contrast on 06/18 demonstrating acute interstitial pancreatitis with cholelithiasis small volume of ascites and small pleural effusions. She appears clinically well at the moment and has no complaints. June 22, 2023: Since admission and being started on Eliquis the patient's hemoglobin has dropped below normal. She now complains of intermittent loose stools with mixed bright red blood. C diff negative. Rectal exam was unremarkable however there is a fear she has a pending exsanguination. Need to keep her here to monitor her hemoglobin. As well, she still has a leukocytosis and that needs to be monitored. She was also febrile last night. Procalcitonin normal so we will continue to trend that along with CRP. Will make GI aware of her bright red blood per rectum. FEN: Saline lock IV. Low-fat diet. GI prophylaxis: Protonix DVT prophylaxis: Eliquis started this admission Lines: Peripheral IV Code Status: Full code Dispo: Stable. Subjective Date/time seen: 06/22/23 12:42 Interval history: Patient complains of loose stool still. At times there is mixed blood bright in the stools which is new for her. She also complains of light spotting per the vaginal os. She had not had menstruation since November of 2022 which was being worked up by her machine design engineer. She reports a little bit of a low appetite today but still is tolerating food. Has abdominal discomfort but is much improved from prior. Review of Systems Review of Systems: All systems reviewed & are unremarkable except as noted in HPI and below (Subjective) Exam Const: General: comfortable and no acute distress Other: Obese. A&O x3. Eyes: Pupils: Equal, round and reactive pupils present Neck: Neck: supple Resp: Effort & Inspection: normal respiratory effort Auscultation: clear to auscultation bilaterally Cardio: Rate: regular rate Rhythm: regular rhythm Heart sounds: no gallops, no murmurs and no rubs GI: GI Palp: Yes Soft to palpation and No Tenderness to palpation present (GI) Auscultation: normal bowel sounds : Other: Rectal exam performed with nurse De La Rosa the patient's permission. No hemorrhoids or fissures noted. Brown stool in the rectal vault. Good anal sphincter tone. Extrem: General: no edema Objective Data Vital Signs Vital Signs: Vital Signs - 24 hr 06/21/23 13:46 06/21/23 14:30 06/21/23 14:30 Temperature 100.7 F H 101.0 F H 101.0 F H Pulse Rate 105 H Respiratory Rate 20 Blood Pressure 124/80 Pulse Oximetry 95 Oxyge
[2023-06-22] MEDS: ACETAMINOPHEN 325 MG TABLET 650 MG PO ×2 (16:01→20:45)
--- NOTE | 2023-06-22 16:16 | PM.PNGS ---
Progress Note: A&P Assessment and Plan (1) Choledocholithiasis with acute cholecystitis: Code(s): K80.42 - Calculus of bile duct with acute cholecystitis without obstruction Status: Acute Assessment and Plan: Will need interval cholecystectomy at some point. (2) Leukocytosis: Code(s): D72.829 - Elevated white blood cell count, unspecified Status: Acute Assessment and Plan: WBC count continues to climb over the weekend with fevers as high as 103F today. Clinically she is improving and her abdominal pain and exam have improved since last week. She denies any new complaints. She was empirically started on IV ceftriaxone and metronidazole on 06/18. Repeat CT scan abdomen/pelvis with IV contrast on 06/18 still showed acute pancreatitis, no pseudocyst or other additional findings that would be a source for the fevers. Will discuss with Dr. Murphy in regards to repeat imaging. Could be related to the pancreatitis. (3) Post-ERCP acute pancreatitis: Code(s): K91.89 - Other postprocedural complications and disorders of digestive system; K85.90 - Acute pancreatitis without necrosis or infection, unspecified Status: Acute Assessment and Plan: Lipase normalized last week. Tolerating low-fat diet. Abdominal pain and exam improved. Subjective Subjective Date/Time Seen: 06/22/23 16:16 Patient reports: no new complaints, feels better, pain is less, tolerating a regular diet, flatus and diarrhea Interval history: Patient reports feeling better for the weekend. Her abdominal and back pain has improved. She now reports intermittent pain that is typically in the left upper quadrant and left lower quadrant. After her bowels started moving, she began to have diarrhea. C diff negative. She also has been running fevers through the weekend with a temp of 103? this afternoon. She has also become more anemic over the past week. Hemoglobin was normal and has slowly trended down over the past 7 days to 9.8 this morning. Patient does report some streaks of blood in her stool now that her bowels are moving. She also reports having some very mild intermittent menstrual spotting, but has not had a menstrual period in over a year. No nausea or vomiting. Denies any shortness of breath, cough, urinary symptoms, or any other complaints at this time. Exam Const: General: comfortable and no acute distress Orientation/consciousness: patient oriented x3 GI: Inspection: other (less distended) GI Palp: Yes Soft to palpation, Yes Tenderness to palpation present (GI) (mild tenderness in the epigastric area, LUQ, and LLQ), No Guarding due to palpation present (GI) and No Palpable mass present (no palpable mass, but some slight firmness felt in the epigastric area) Auscultation: normal bowel sounds Objective Data Vital Signs Vital Signs: Vital Signs - 24 hr 06/21/23 17:42 06/21/23 17:47 06/21/23 19:41 Temperature 101.4 F H 101.4 F H Pulse Rate 99 Respiratory Rate Blood Pressure Pulse Oximetry Oxygen Delivery 06/21/23 22:00 06/22/23 06:00 06/22/23 08:00 Temperature 99.3 F 98.1 F Pulse Rate 110 H 103 H Respiratory Rate 16 16 Blood Pressure 127/73 124/65 Pulse Oximetry 98 97 Oxygen Delivery Room Air 06/22/23 14:00 06/22/23 16:01 Temperature 98.6 F 103 F H Pulse Rate 103 H Respiratory Rate 18 Blood Pressure 122/70 Pulse Oximetry 100 Oxygen Delivery Intake/Output Intake/Output: Intake & Output 06/19/23 06/20/23 06/21/23 06/22/23 23:59 23:59 23:59 23:59 Intake Total 1560 2690 2390 1620 Output Total 200 Balance 1360 2690 2390 1620 Meds/Results Medications: Active Medications Generic Name Dose Route Start Last Admin Trade Name Freq PRN Reason Stop Dose Admin Acetaminophen 650 mg 06/13/23 01:13 06/22/23 16:01 Acetaminophen 325 Mg Tablet PO 650 mg Q4H PRN Administration Mild Pain (1-3) or Fever Hydrocodone Bitart/Acetaminophen 1 t
--- NOTE | 2023-06-22 17:16 | WPDGIPROGNO ---
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 Status: Acute Assessment and Plan: new finding by MRCP she is currently on eliquis (2) Post-ERCP acute pancreatitis: Code(s): K91.89 - Other postprocedural complications and disorders of digestive system; K85.90 - Acute pancreatitis without necrosis or infection, unspecified Status: Acute Assessment and Plan: tolerating low fat diet and clinically stable still leukocytosis but most likely is from pancreatitis, repeat CT scan few days ago no complications other than similar pancreatitis she has bee on abx empirically for last few days monitor if more blood with stool (3) Choledocholithiasis: Code(s): K80.50 - Calculus of bile duct without cholangitis or cholecystitis without obstruction Status: Acute Assessment and Plan: s/p ercp with sphincterotomy (stone had already passed), MRCP after ERCP no bile duct stone jessica postponed, will need follow-up with surgery currently on eliquis (4) RUQ pain: Code(s): R10.11 - Right upper quadrant pain Status: Acute Assessment and Plan: no surgery given acute thrombus requiring less pain meds, now only by mouth Subjective Date/time seen: 06/22/23 17:16 Interval history: no major changes, she is eating, pain is similar she finally had BM and noted small amount of blood in stool Review of Systems Review of Systems: All systems reviewed & are unremarkable except as noted in HPI and below Exam Const: General: comfortable and no acute distress Other: Obese. A&O x3. HENMT: Mouth: Yes moist mucous membranes Eyes: Sclera: sclerae normal Neck: Neck: supple Resp: Effort & Inspection: normal respiratory effort Auscultation: clear to auscultation bilaterally Cardio: Rate: regular rate Rhythm: regular rhythm GI: Inspection: non-distended GI Palp: Yes Soft to palpation and Yes Tenderness to palpation present (GI) (mild ttp in epigastric) Auscultation: normal bowel sounds Skin: General skin exam: normal color Neuro: Speech: normal speech Motor exam (neuro): 5/5 motor strength present throughout Extrem: General: no edema Psych: Mental Status: mental status grossly normal Objective Data Vital Signs Vital Signs: Vital Signs - 24 hr 06/21/23 17:42 06/21/23 17:47 06/21/23 19:41 Temperature 101.4 F H 101.4 F H Pulse Rate 99 Respiratory Rate Blood Pressure Pulse Oximetry Oxygen Delivery 06/21/23 22:00 06/22/23 06:00 06/22/23 08:00 Temperature 99.3 F 98.1 F Pulse Rate 110 H 103 H Respiratory Rate 16 16 Blood Pressure 127/73 124/65 Pulse Oximetry 98 97 Oxygen Delivery Room Air 06/22/23 14:00 06/22/23 16:01 06/22/23 17:09 Temperature 98.6 F 103 F H 102.9 F H Pulse Rate 103 H Respiratory Rate 18 Blood Pressure 122/70 Pulse Oximetry 100 Oxygen Delivery Intake/Output Intake/Output: Intake & Output 06/19/23 06/20/23 06/21/23 06/22/23 23:59 23:59 23:59 23:59 Intake Total 1560 2690 2390 1620 Output Total 200 Balance 1360 2690 2390 1620 Meds/Results Medications: Active Medications Generic Name Dose Route Start Last Admin Trade Name Freq PRN Reason Stop Dose Admin Acetaminophen 650 mg 06/13/23 01:13 06/22/23 16:01 Acetaminophen 325 Mg Tablet PO 650 mg Q4H PRN Administration Mild Pain (1-3) or Fever Hydrocodone Bitart/Acetaminophen 1 tab 06/16/23 13:44 06/20/23 05:51 Hydrocodone/Acetaminophen (*Crx) 10-325 Mg Tablet PO 1 tab Q6H PRN Administration Pain Rated 7-10 Hydrocodone Bitart/Acetaminophen 1 tab 06/20/23 12:03 06/22/23 10:08 Hydrocodone/Acetaminophen (*Crx) 7.5-325 Mg Tablet PO 1 tab Q6H PRN Administration Pain Rated 4-6 Apixaban 10 mg 06/16/23 21:00 06/22/23 08:26 Apixaban 5 Mg Tablet PO 06/23/23 09:01 10 mg Q12HR KSENIA Administration Apixaban 5 mg 0
[2023-06-23] VITALS (7 sets, daily range): BP systolic 118–129; BP diastolic 67–78; PULSE 82–101; RESP 12–18; TEMP 37.6–37.9; O2SAT 97–99
[2023-06-23] MEDS: metroNIDAZOLE 500 MG/ISO 100ML 500 MG/100 ML BAG 100 MG IVPB ×3 (05:48→20:34)
[2023-06-23] MEDS: ACETAMINOPHEN 325 MG TABLET 650 MG PO ×3 (05:54→14:15)
[2023-06-23 07:05] LABS: Basophils Absolute Auto 0.1 K/mm3 (0.0-0.1); Basophils Percent Auto 0.5 % (0.2-1.2); Eosinophils Absolute Auto 0.2 K/mm3 (0-0.3); Hematocrit 31.1 % (37.0-47.0); Hemoglobin 9.7 g/dL (12.0-15.0); Immature Granulocyte Absolute 0.79 K/mm3 (0.00-0.031); Immature Granulocyte Percent A 4.3 % (0-0.5); Lymphocytes Absolute Auto 1.12 K/mm3 (0.9-3.2); Lymphocytes Percent Auto 6.1 % (18.3-44.2); Mean Corpuscular HGB Conc 31.2 g/dl (32-36); Mean Corpuscular Hemoglobin 25.7 pg (26-34); Mean Corpuscular Volume 82.5 fl (80-100); Mean Platelet Volume 9.3 fl (7.4-10.4); Monocytes Absolute Auto 1.8 K/mm3 (0.1-0.6); Monocytes Percent Auto 9.5 % (2.6-8.5); Neutrophils Absolute Auto 14.5 K/mm3 (1.3-6.7); Neutrophils Percent Auto 78.6 % (45.5-73.1); Platelet Count Result 617 k/mm3 (150-375); Red Blood Count 3.77 M/mm3 (4.2-5.4); Red Cell Distribution Width 16.1 % (11.5-14.5); White Blood Count 18.5 K/mm3 (4.5-10.0)
[2023-06-23 07:52] LABS: Procalcitonin 0.3 ng/mL
[2023-06-23 08:11] LABS: Alanine Aminotransferase 39 U/L (6-35); Albumin Level 3.3 g/dL (3.5-5.1); Alkaline Phosphatase 103 U/L (38-126); Anion Gap 7 mmol/L (4-12); Aspartate Amino Transferase 51 U/L (14-36); Bilirubin,Total 0.5 mg/dL (0.2-1.3); Blood Urea Nitrogen 8 mg/dL (7-17); Calcium 8.5 mg/dL (8.4-10.2); Carbon Dioxide 25 mmol/L (22-30); Chloride 104 mmol/L (98-107); Estimated CRCL calculation 153 ml/min; Estimated Glomerular Filt Rate > 60; Glucose 104 mg/dL (65-110); Magnesium 2.5 mg/dL (1.6-2.3); Potassium 4.1 mmol/L (3.4-5.0); Sodium 136 mmol/L (137-145)
[2023-06-23] MEDS: APIXABAN 5 MG TABLET 10 MG PO (08:36)
[2023-06-23] MEDS: PANTOPRAZOLE 40 MG TABLET PO (08:37)
[2023-06-23] MEDS: CALCIUM/VITAMIN D 500 MG/5 MCG (200 I.U.) TABLET PO ×2 (08:37→17:11)
[2023-06-23] MEDS: LABETALOL HCL 100 MG TABLET PO ×2 (08:37→20:33)
[2023-06-23] MEDS: LIDOCAINE 5% PATCH 1 PATCH TRANSDERM (08:39)
[2023-06-23] MEDS: cefTRIAXone 2 GM/NS 100 ML 2 GM/100 ML BAG IVPB (08:40)
[2023-06-23 08:56] LABS: CRP 30.1 mg/dL (<1.0)
--- NOTE | 2023-06-23 10:22 | PM.IMPN ---
Progress Note: A&P Assessment and Plan (1) Leukocytosis: Code(s): D72.829 - Elevated white blood cell count, unspecified Status: Acute (2) Acute thrombosis of inferior vena cava: Code(s): I82.220 - Acute embolism and thrombosis of inferior vena cava Status: Acute (3) Post-ERCP acute pancreatitis: Code(s): K91.89 - Other postprocedural complications and disorders of digestive system; K85.90 - Acute pancreatitis without necrosis or infection, unspecified Status: Acute (4) Choledocholithiasis: Code(s): K80.50 - Calculus of bile duct without cholangitis or cholecystitis without obstruction Status: Acute (5) Nausea & vomiting: Code(s): R11.2 - Nausea with vomiting, unspecified Status: Acute (6) Transaminitis: Code(s): R74.01 - Elevation of levels of liver transaminase levels Status: Acute Plan Miss Dupont is a 32-year-old female with a past medical history hypertension and obesity who presented on June 11 with complaint of abdominal pain. She was found to have a 3 mm stone in the bile duct on 06/11 underwent ERCP at which time a sphincterotomy was performed. Subsequently developed post ERCP acute pancreatitis. MRCP demonstrated hepatic vein thrombosis and Eliquis was started. Surgery consulted advised patient to be anticoagulated and they will pursue interval cholecystectomy. #Febrile illness and leukocytosis -unclear etiology although the most likely culprit being her pancreatitis. CRP is elevated at 30. Procalcitonin normal at 0.3. Continue to trend. C diff negative. Interestingly enough, she has no symptomatology to report aside from feeling mildly feverish and a mild abdominal discomfort much improved compared to admission. Her fever as high as 103 and last night only about 100 now. Leukocytosis as high as 22,000 now down to 18,000 today. -considering the above, continue ceftriaxone and Flagyl started empirically days ago. Repeat CT with contrast chest abdomen pelvis, repeat UA repeat blood cultures. #Post ERCP pancreatitis -lipase has since downtrended. Only with mild abdominal discomfort. Tolerating diet and having loose stools. MiraLax discontinued. Again, as above will repeat imaging to assess for any pseudocyst/abscess/worsening interstitial edema. -GI and General surgery also following. #Anemia -this is new since admission and has down trended however stabilizing in the past few days. Patient reported bright red blood mixed in her stool on 06/21 and considering Eliquis has just been started needs to be watched tightly. Rectal exam performed on 06/21 demonstrating brown stool in the rectal vault without any internal or external hemorrhoids or fissures and good anal sphincter tone. GI is following this issue as well. #Hepatic vein thrombosis -discovered during MRCP. Received 7 days of Eliquis 10 mg p.o. b.i.d. -continue Eliquis 5 mg p.o. b.i.d. -further management in the outpatient setting for months of anticoagulation #Choledocholithiasis -appears to be the reason she presented with abdominal pain. 3 mm stone in the common bile duct not visualized on ERCP. ERCP status post sphincterotomy -general surgery following. Patient to have interval cholecystectomy after being anticoagulated for the hepatic vein thrombosis. #Essential hypertension -takes labetalol at home, holding. Currently controlled. Continue to monitor FEN: Low-fat diet. Saline lock IV. GI prophylaxis: Protonix 40 mg p.o. q.a.m. can consider discontinuing if patient continues to eat DVT prophylaxis: Eliquis 5 mg p.o. b.i.d. Lines: Peripheral IV Code Status: Full code Dispo: Stable. Subjective Date/time seen: 06/23/23 10:22 Interval history: Acute overnight events. Patient reports tolerating diet still with loose stools but no mention of blood mixed in. She reports feeling mildly fever shoulder night still has that abdominal discomfort is improved overall. She
--- NOTE | 2023-06-23 12:47 | PM.PNGS ---
Progress Note: A&P Assessment and Plan (1) Choledocholithiasis with acute cholecystitis: Code(s): K80.42 - Calculus of bile duct with acute cholecystitis without obstruction Status: Acute Assessment and Plan: Will need interval cholecystectomy at some point. (2) Leukocytosis: Code(s): D72.829 - Elevated white blood cell count, unspecified Status: Acute Assessment and Plan: WBC count down slightly to 18,500 today, but fevers persist. Agree with getting a repeat CT chest/abdomen/pelvis. Hospitalist also getting UA and blood cultures. Continue empiric IV antibiotics for now. Will await CT results. (3) Post-ERCP acute pancreatitis: Code(s): K91.89 - Other postprocedural complications and disorders of digestive system; K85.90 - Acute pancreatitis without necrosis or infection, unspecified Status: Acute Assessment and Plan: Continues to clinically improve. Abdominal exam benign with pain and tenderness improving. If CT scan is negative, then we would recommend to treat her clinically. Plan I have discussed the patient's case and plan of care with Dr. Murphy. Subjective Subjective Date/Time Seen: 06/23/23 12:47 Patient reports: no new complaints, feels better, pain is less, flatus and bowel movement Interval history: Patient reports feeling better every day. She is concerned about the fevers that persist. She continued to have a low grade fever overnight. She reports that today she feels like her abdominal pain is the best it has been for days. She is only having very mild LUQ intermittent pain. She was able to sleep last night. Denies any nausea or vomiting. She is tolerating a diet. She is having loose stools starting over the weekend, but only 1-2 daily. No excessive diarrhea. Exam Const: General: comfortable and no acute distress Orientation/consciousness: patient oriented x3 GI: Inspection: non-distended GI Palp: Yes Soft to palpation, Yes Tenderness to palpation present (GI) (very mild epigastric tenderness), No Guarding due to palpation present (GI) and No Rebound tenderness present Auscultation: normal bowel sounds Objective Data Vital Signs Vital Signs: Vital Signs - 24 hr 06/22/23 14:00 06/22/23 16:01 06/22/23 17:09 Temperature 98.6 F 103 F H 102.9 F H Pulse Rate 103 H Respiratory Rate 18 Blood Pressure 122/70 Pulse Oximetry 100 Oxygen Delivery 06/22/23 17:01 06/22/23 18:24 06/22/23 20:23 Temperature 102.9 F H 101.1 F H 99.9 F H Pulse Rate 105 H Respiratory Rate 14 Blood Pressure 138/78 Pulse Oximetry 98 Oxygen Delivery 06/22/23 20:40 06/22/23 20:45 06/22/23 21:45 Temperature 100.2 F H 99.7 F H Pulse Rate 106 H Respiratory Rate Blood Pressure Pulse Oximetry Oxygen Delivery 06/22/23 20:40 06/23/23 05:43 06/23/23 05:54 Temperature 99.8 F H 100.1 F H Pulse Rate 106 H 99 Respiratory Rate 12 Blood Pressure 120/67 Pulse Oximetry 97 Oxygen Delivery Room Air 06/23/23 06:50 06/23/23 08:37 06/23/23 08:00 Temperature 99.7 F H Pulse Rate 82 Respiratory Rate Blood Pressure Pulse Oximetry Oxygen Delivery Room Air Intake/Output Intake/Output: Intake & Output 06/20/23 06/21/23 06/22/23 06/23/23 23:59 23:59 23:59 23:59 Intake Total 2690 2390 1720 830 Balance 2690 2390 1720 830 Meds/Results Medications: Active Medications Generic Name Dose Route Start Last Admin Trade Name Freq PRN Reason Stop Dose Admin Acetaminophen 650 mg 06/13/23 01:13 06/23/23 05:54 Acetaminophen 325 Mg Tablet PO 650 mg Q4H PRN Administration Mild Pain (1-3) or Fever Hydrocodone Bitart/Acetaminophen 1 tab 06/16/23 13:44 06/20/23 05:51 Hydrocodone/Acetaminophen (*Crx) 10-325 Mg Tablet PO 1 tab Q6H PRN Administration Pain Rated 7-10 Hydrocodone Bitart/Acetaminophen 1 tab 06/20/23 12:03 06/22/23 22:36 Hydrocodone/Acetaminophen (*Crx) 7.5-325 Mg Tab
[2023-06-23 16:51] LABS: Appearance Urine Clear (Clear); Bacteria Urine None Seen /hpf; Bilirubin Urine Negative (Negative); Blood Urine 3+ (Negative); Color Urine Yellow (Yellow); Glucose Urine UA Negative (Negative); Ketones Urine Negative (Negative); Leukocyte Esterase Ur Negative LEU/UL (Negative); Need Manual Microscopic Reviewed; Nitrate Urine Negative (Negative); Non Pathogenic Casts 0-2; Protein Urine Negative (Negative); RBC Urine 51-100 /hpf (0-2); Squamous Epithelial Cell Urine None Seen /hpf (Few); Urobilinogen Urine 0.2 mg/dL (<2.0); WBC Urine 0-5 /hpf (0-3)
[2023-06-23 16:54] LABS: Add Urine Microscopic? YES; Specific Grav Ur 1.033 (1.001-1.035)
--- NOTE | 2023-06-23 17:43 | WPDGIPROGNO ---
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 Status: Acute Assessment and Plan: new finding by MRCP she is currently on eliquis (3) Choledocholithiasis: Code(s): K80.50 - Calculus of bile duct without cholangitis or cholecystitis without obstruction Status: Acute Assessment and Plan: s/p ercp with sphincterotomy (stone had already passed), MRCP after ERCP no bile duct stone jessica postponed, will need follow-up with surgery currently on eliquis (4) RUQ pain: Code(s): R10.11 - Right upper quadrant pain Status: Acute Assessment and Plan: no surgery given acute thrombus requiring less pain meds, now only by mouth Subjective Date/time seen: 06/23/23 17:43 Interval history: abdominal pain almost gone but persistent fever for which has been using tylenol repeat CT scan similar pancreatitis without complications, also pleural effusion Review of Systems Review of Systems: All systems reviewed & are unremarkable except as noted in HPI and below Exam Const: General: comfortable and no acute distress Orientation/consciousness: patient oriented x3 HENMT: Face/Nose/Sinus: Normal nares present Eyes: Sclera: sclerae normal Neck: Neck: supple Resp: Effort & Inspection: normal respiratory effort Cardio: Rate: regular rate GI: Inspection: non-distended GI Palp: Yes Soft to palpation, Yes Tenderness to palpation present (GI) (very mild epigastric tenderness), No Guarding due to palpation present (GI) and No Rebound tenderness present Auscultation: normal bowel sounds Skin: General skin exam: normal color Neuro: Speech: normal speech Motor exam (neuro): 5/5 motor strength present throughout Extrem: General: normal to inspection Psych: Mental Status: mental status grossly normal Objective Data Vital Signs Vital Signs: Vital Signs - 24 hr 06/22/23 18:24 06/22/23 20:23 06/22/23 20:40 Temperature 101.1 F H 99.9 F H Pulse Rate 105 H 106 H Respiratory Rate 14 Blood Pressure 138/78 Pulse Oximetry 98 Oxygen Delivery 06/22/23 20:45 06/22/23 21:45 06/22/23 20:40 Temperature 100.2 F H 99.7 F H Pulse Rate 106 H Respiratory Rate Blood Pressure Pulse Oximetry Oxygen Delivery Room Air 06/23/23 05:43 06/23/23 05:54 06/23/23 06:50 Temperature 99.8 F H 100.1 F H 99.7 F H Pulse Rate 99 Respiratory Rate 12 Blood Pressure 120/67 Pulse Oximetry 97 Oxygen Delivery 06/23/23 08:37 06/23/23 08:00 06/23/23 14:00 Temperature 100.3 F H Pulse Rate 82 96 Respiratory Rate 18 Blood Pressure 118/69 Pulse Oximetry 99 Oxygen Delivery Room Air Intake/Output Intake/Output: Intake & Output 06/20/23 06/21/23 06/22/23 06/23/23 23:59 23:59 23:59 23:59 Intake Total 2690 2390 1720 1070 Balance 2690 2390 1720 1070 Meds/Results Medications: Active Medications Generic Name Dose Route Start Last Admin Trade Name Freq PRN Reason Stop Dose Admin Acetaminophen 650 mg 06/13/23 01:13 06/23/23 14:15 Acetaminophen 325 Mg Tablet PO 650 mg Q4H PRN Administration Mild Pain (1-3) or Fever Hydrocodone Bitart/Acetaminophen 1 tab 06/16/23 13:44 06/20/23 05:51 Hydrocodone/Acetaminophen (*Crx) 10-325 Mg Tablet PO 1 tab Q6H PRN Administration Pain Rated 7-10 Hydrocodone Bitart/
[2023-06-23] MEDS: HYDROcodone/acetaminophen (*CRX) 7.5-325 MG TABLET 1 TAB PO (20:33)
[2023-06-23] MEDS: APIXABAN 5 MG TABLET PO (20:33)
[2023-06-24] MEDS: metroNIDAZOLE 500 MG/ISO 100ML 500 MG/100 ML BAG 100 MG IVPB (05:40)
[2023-06-24] MEDS: ACETAMINOPHEN 325 MG TABLET 650 MG PO ×4 (05:40→20:55)
[2023-06-24 06:20] VITALS: BP 128/72; PULSE 108; RESP 16; TEMP 37.8; O2SAT 97
[2023-06-24 06:35] LABS: Basophils Absolute Auto 0.1 K/mm3 (0.0-0.1); Basophils Percent Auto 0.5 % (0.2-1.2); Eosinophils Absolute Auto 0.2 K/mm3 (0-0.3); Hematocrit 30.4 % (37.0-47.0); Hemoglobin 9.3 g/dL (12.0-15.0); Immature Granulocyte Absolute 0.52 K/mm3 (0.00-0.031); Immature Granulocyte Percent A 3.2 % (0-0.5); Lymphocytes Absolute Auto 1.02 K/mm3 (0.9-3.2); Lymphocytes Percent Auto 6.2 % (18.3-44.2); Mean Corpuscular HGB Conc 30.6 g/dl (32-36); Mean Corpuscular Hemoglobin 25.6 pg (26-34); Mean Corpuscular Volume 83.7 fl (80-100); Mean Platelet Volume 9.4 fl (7.4-10.4); Monocytes Absolute Auto 1.6 K/mm3 (0.1-0.6); Monocytes Percent Auto 9.7 % (2.6-8.5); Neutrophils Absolute Auto 13.1 K/mm3 (1.3-6.7); Neutrophils Percent Auto 79.4 % (45.5-73.1); Platelet Count Result 632 k/mm3 (150-375); Red Blood Count 3.63 M/mm3 (4.2-5.4); Red Cell Distribution Width 16.3 % (11.5-14.5); White Blood Count 16.4 K/mm3 (4.5-10.0)
[2023-06-24 06:45] LABS: Alanine Aminotransferase 36 U/L (6-35); Albumin Level 3.3 g/dL (3.5-5.1); Alkaline Phosphatase 86 U/L (38-126); Anion Gap 10 mmol/L (4-12); Aspartate Amino Transferase 39 U/L (14-36); Bilirubin,Total 0.5 mg/dL (0.2-1.3); Blood Urea Nitrogen 9 mg/dL (7-17); Calcium 8.5 mg/dL (8.4-10.2); Carbon Dioxide 19 mmol/L (22-30); Chloride 105 mmol/L (98-107); Estimated CRCL calculation 153 ml/min; Estimated Glomerular Filt Rate > 60; Glucose 105 mg/dL (65-110); Magnesium 2.3 mg/dL (1.6-2.3); Potassium 4.1 mmol/L (3.4-5.0); Sodium 134 mmol/L (137-145)
[2023-06-24 07:12] LABS: Procalcitonin 0.3 ng/mL
[2023-06-24 07:13] LABS: CRP 24.1 mg/dL (<1.0)
--- NOTE | 2023-06-24 08:33 | PM.IMPN ---
Progress Note: A&P Assessment and Plan (1) Leukocytosis: Code(s): D72.829 - Elevated white blood cell count, unspecified Status: Acute (2) Acute thrombosis of inferior vena cava: Code(s): I82.220 - Acute embolism and thrombosis of inferior vena cava Status: Acute (3) Post-ERCP acute pancreatitis: Code(s): K91.89 - Other postprocedural complications and disorders of digestive system; K85.90 - Acute pancreatitis without necrosis or infection, unspecified Status: Acute (4) Choledocholithiasis: Code(s): K80.50 - Calculus of bile duct without cholangitis or cholecystitis without obstruction Status: Acute (5) Nausea & vomiting: Code(s): R11.2 - Nausea with vomiting, unspecified Status: Acute (6) Transaminitis: Code(s): R74.01 - Elevation of levels of liver transaminase levels Status: Acute Plan Miss Dupont is a 32-year-old female with a past medical history hypertension and obesity who presented on June 11 with complaint of abdominal pain. She was found to have a 3 mm stone in the bile duct on 06/11 underwent ERCP at which time a sphincterotomy was performed. Subsequently developed post ERCP acute pancreatitis. MRCP demonstrated hepatic vein thrombosis and Eliquis was started. Surgery consulted advised patient to be anticoagulated and they will pursue interval cholecystectomy. #Febrile illness and leukocytosis SIRS VS SEPSIS -unclear etiology although the most likely culprit being her pancreatitis. CRP is elevated at 30. Procalcitonin normal at 0.3. Continue to trend. C diff negative. Interestingly enough, she has no symptomatology to report aside from feeling mildly feverish and a mild abdominal discomfort much improved compared to admission. Her fever as high as 103 and last night only about 100 now. Leukocytosis as high as 22,000 now down to 18,000 today. -considering the above, continue ceftriaxone and Flagyl started empirically days ago. Repeat CT with contrast chest abdomen pelvis, repeat UA repeat blood cultures. 06/23: patient still have fever overnight, 100.3, leukocytosis persists, blood culture no growth of bacteria so far. CT chest abdomen pelvis shows no acute cardiopulmonary issue, but acute appendicitis with extensive intra abdomen per Antonio inflammation change, no necrosis or abscess was reported on June 22 Patient has been on ceftriaxone and Flagyl since Alina 12. Procalcitonin 0.3, change to zosyn #Post ERCP pancreatitis -lipase has since downtrended. Only with mild abdominal discomfort. Tolerating diet and having loose stools. MiraLax discontinued. Again, as above will repeat imaging to assess for any pseudocyst/abscess/worsening interstitial edema. -GI and General surgery also following. #Anemia -this is new since admission and has down trended however stabilizing in the past few days. Patient reported bright red blood mixed in her stool on 06/21 and considering Eliquis has just been started needs to be watched tightly. Rectal exam performed on 06/21 demonstrating brown stool in the rectal vault without any internal or external hemorrhoids or fissures and good anal sphincter tone. GI is following this issue as well. #Hepatic vein thrombosis -discovered during MRCP. Received 7 days of Eliquis 10 mg p.o. b.i.d. -continue Eliquis 5 mg p.o. b.i.d. -further management in the outpatient setting for months of anticoagulation #Choledocholithiasis -appears to be the reason she presented with abdominal pain. 3 mm stone in the common bile duct not visualized on ERCP. ERCP status post sphincterotomy -general surgery following. Patient to have interval cholecystectomy after being anticoagulated for the hepatic vein thrombosis. #Essential hypertension -takes labetalol at home, holding. Currently controlled. Continue to monitor FEN: Low-fat diet. Saline lock IV. GI prophylaxis: Protonix 40 mg p.o. q.a.m. can consider discontinuing if pa
[2023-06-24 08:44] VITALS: PULSE 80
[2023-06-24] MEDS: LABETALOL HCL 100 MG TABLET PO ×2 (08:44→20:55)
[2023-06-24] MEDS: PANTOPRAZOLE 40 MG TABLET PO (08:44)
[2023-06-24] MEDS: CALCIUM/VITAMIN D 500 MG/5 MCG (200 I.U.) TABLET PO ×2 (08:44→16:57)
[2023-06-24] MEDS: APIXABAN 5 MG TABLET PO ×2 (08:45→20:55)
[2023-06-24] MEDS: PIPERACILLN/TAZ 3.375GM/NS50ML 3.375 GM/50 ML BAG IVPB ×4 (09:03→23:15)
[2023-06-24] MEDS: LIDOCAINE 5% PATCH 1 PATCH TRANSDERM (11:38)
--- NOTE | 2023-06-24 13:02 | PM.PNGS ---
Progress Note: A&P Assessment and Plan (1) Choledocholithiasis with acute cholecystitis: Code(s): K80.42 - Calculus of bile duct with acute cholecystitis without obstruction Status: Acute Assessment and Plan: Will need interval cholecystectomy that can be scheduled as an outpatient in follow-up. (2) Post-ERCP acute pancreatitis: Code(s): K91.89 - Other postprocedural complications and disorders of digestive system; K85.90 - Acute pancreatitis without necrosis or infection, unspecified Status: Acute Assessment and Plan: Repeat CT scan yesterday showed changes of pancreatitis but no abscess, pseudocyst, or any other findings that would cause leukocytosis and fevers. Clinically she continues to improve. White blood cell count also has started trending down. Would continue to treat her clinically. Okay to discharge on oral antibiotics from a surgical standpoint. Will follow-up in 3-4 weeks. (3) Leukocytosis: Code(s): D72.829 - Elevated white blood cell count, unspecified Status: Acute Assessment and Plan: Clinically improving. White blood cell count trending down. Repeat CT scan chest, abdomen, and pelvis yesterday showed pancreatitis and moderate left pleural effusion. No pancreatic necrosis, pseudocyst, abscess, or any other finding that would be a source for her fevers. Plan I have discussed the patient's case and plan of care with Dr. Murphy. Subjective Subjective Date/Time Seen: 06/24/23 13:02 Patient reports: no new complaints, feels better, pain is less, flatus, bowel movement and afebrile Interval history: Patient continues to improve daily. Bowel movements are becoming more formed. Tolerating a diet. Still having minimal epigastric and left upper quadrant pain intermittently that is improving daily. No other complaints at this time. Review of Systems Review of Systems: All systems reviewed & are unremarkable except as noted in HPI and below Exam Const: General: comfortable and no acute distress Orientation/consciousness: patient oriented x3 GI: Inspection: non-distended GI Palp: Yes Soft to palpation, Yes Tenderness to palpation present (GI) (Mild epigastric and left upper quadrant tenderness), No Guarding due to palpation present (GI) and No Rebound tenderness present Auscultation: normal bowel sounds Objective Data Vital Signs Vital Signs: Vital Signs - 24 hr 06/23/23 14:00 06/23/23 20:00 06/23/23 20:23 Temperature 100.3 F H 99.9 F H Pulse Rate 96 101 H Respiratory Rate 18 18 Blood Pressure 118/69 129/78 Pulse Oximetry 99 99 98 Oxygen Delivery Room Air 06/24/23 06:20 06/24/23 08:44 06/24/23 08:00 Temperature 100.0 F H Pulse Rate 108 H 80 Respiratory Rate 16 Blood Pressure 128/72 Pulse Oximetry 97 Oxygen Delivery Room Air Intake/Output Intake/Output: Intake & Output 06/21/23 06/22/23 06/23/23 06/24/23 23:59 23:59 23:59 23:59 Intake Total 2390 1720 1620 660 Balance 2390 1720 1620 660 Meds/Results Medications: Active Medications Generic Name Dose Route Start Last Admin Trade Name Freq PRN Reason Stop Dose Admin Acetaminophen 650 mg 06/13/23 01:13 06/24/23 09:40 Acetaminophen 325 Mg Tablet PO 650 mg Q4H PRN Administration Mild Pain (1-3) or Fever Hydrocodone Bitart/Acetaminophen 1 tab 06/16/23 13:44 06/20/23 05:51 Hydrocodone/Acetaminophen (*Crx) 10-325 Mg Tablet PO 1 tab Q6H PRN Administration Pain Rated 7-10 Hydrocodone Bitart/Acetaminophen 1 tab 06/20/23 12:03 06/23/23 20:33 Hydrocodone/Acetaminophen (*Crx) 7.5-325 Mg Tablet PO 1 tab Q6H PRN Administration Pain Rated 4-6 Apixaban 5 mg 06/23/23 21:00 06/24/23 08:45 Apixaban 5 Mg Tablet PO 5 mg Q12HR KSENIA Administration Calcium Carbonate 500 mg 06/18/23 17:00 06/24/23 08:44 Calcium/Vitamin D 500 Mg/5 Mcg (200 I.U.) Tablet PO 500 mg BIDWM KSENIA Administration Dicyclomine HCl
[2023-06-24 14:00] VITALS: BP 125/86; PULSE 99; RESP 18; TEMP 37.6; O2SAT 100
[2023-06-24] MEDS: HYDROcodone/acetaminophen (*CRX) 10-325 MG TABLET 1 TAB PO (14:21)
--- NOTE | 2023-06-24 15:17 | WPDGIPROGNO ---
Progress Note: A&P Assessment and Plan (1) Post-ERCP acute pancreatitis: Code(s): K91.89 - Other postprocedural complications and disorders of digestive system; K85.90 - Acute pancreatitis without necrosis or infection, unspecified Status: Acute Assessment and Plan: tolerating low fat diet and clinically stable but lately with persistent fever- last 24 hours mostly low grade fever. 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 Status: Acute Assessment and Plan: new finding by MRCP she is currently on eliquis (3) Choledocholithiasis: Code(s): K80.50 - Calculus of bile duct without cholangitis or cholecystitis without obstruction Status: Acute Assessment and Plan: s/p ercp with sphincterotomy (stone had already passed), MRCP after ERCP no bile duct stone jessica postponed, will need follow-up with surgery currently on eliquis Subjective Date/time seen: 06/24/23 15:17 Interval history: low grade fever but better with tylenol, no other changes, she is comfortable Review of Systems Review of Systems: All systems reviewed & are unremarkable except as noted in HPI and below Exam Const: General: comfortable and no acute distress Orientation/consciousness: patient oriented x3 HENMT: Face/Nose/Sinus: Normal nares present Eyes: Sclera: sclerae normal Neck: Neck: supple Resp: Effort & Inspection: normal respiratory effort Cardio: Rate: regular rate GI: Inspection: non-distended GI Palp: Yes Soft to palpation, Yes Tenderness to palpation present (GI) (very mild epigastric tenderness), No Guarding due to palpation present (GI) and No Rebound tenderness present Auscultation: normal bowel sounds Skin: General skin exam: normal color Neuro: Speech: normal speech Motor exam (neuro): 5/5 motor strength present throughout Extrem: General: normal to inspection Psych: Mental Status: mental status grossly normal Objective Data Vital Signs Vital Signs: Vital Signs - 24 hr 06/23/23 20:00 06/23/23 20:23 06/24/23 06:20 Temperature 99.9 F H 100.0 F H Pulse Rate 101 H 108 H Respiratory Rate 18 16 Blood Pressure 129/78 128/72 Pulse Oximetry 99 98 97 Oxygen Delivery Room Air 06/24/23 08:44 06/24/23 08:00 06/24/23 14:00 Temperature 99.6 F Pulse Rate 80 99 Respiratory Rate 18 Blood Pressure 125/86 Pulse Oximetry 100 Oxygen Delivery Room Air Intake/Output Intake/Output: Intake & Output 06/21/23 06/22/23 06/23/23 06/24/23 23:59 23:59 23:59 23:59 Intake Total 2390 1720 1620 830 Balance 2390 1720 1620 830 Meds/Results Medications: Active Medications Generic Name Dose Route Start Last Admin Trade Name Freq PRN Reason Stop Dose Admin Acetaminophen 650 mg 06/13/23 01:13 06/24/23 09:40 Acetaminophen 325 Mg Tablet PO 650 mg Q4H PRN Administration Mild Pain (1-3) or Fever Hydrocodone Bitart/Acetaminophen 1 tab 06/16/23 13:44 06/24/23 14:21 Hydrocodone/Acetaminophen (*Crx) 10-325 Mg Tablet PO 1 tab Q6H PRN Administration Pain Rated 7-10 Hydrocodone Bitart/Acetaminophen 1 tab 06/20/23 12:03 06/23/23 20:33 Hydrocodone/Acetaminophen (*Crx) 7.5-325 Mg Tablet PO 1 tab Q6H PRN Administration Pain Rated 4-6 Apixaban 5 mg 06/23/23 21:00 06/24/23 08:45 Apixaban 5 Mg Tablet PO 5 mg Q12HR KSENIA Administration Calcium Carbonate 500 mg 06/18/23 17:00 06/24/23 08:44 Calcium/Vitamin D 500 Mg/5 Mcg (200 I.U.) Tablet PO 500 mg BIDWM KSENIA Administration Dicyclomine HCl 20 mg 06/18/23 18:25 06/19/23 10:22 Dicyclomine H
[2023-06-24 20:00] VITALS: O2SAT 99
[2023-06-24 20:51] VITALS: BP 113/71; PULSE 104; RESP 18; TEMP 37.6; O2SAT 99
[2023-06-24 20:55] VITALS: TEMP 37.6
[2023-06-25] VITALS (11 sets, daily range): BP systolic 118–130; BP diastolic 63–80; PULSE 78–95; RESP 15–18; TEMP 37.1–38.4; O2SAT 95–99
[2023-06-25] MEDS: ACETAMINOPHEN 325 MG TABLET 650 MG PO ×3 (00:15→15:47)
[2023-06-25] MEDS: PIPERACILLN/TAZ 3.375GM/NS50ML 3.375 GM/50 ML BAG IVPB ×2 (05:45→11:47)
[2023-06-25] MEDS: LABETALOL HCL 100 MG TABLET PO ×2 (08:59→22:23)
[2023-06-25] MEDS: PANTOPRAZOLE 40 MG TABLET PO (08:59)
[2023-06-25] MEDS: CALCIUM/VITAMIN D 500 MG/5 MCG (200 I.U.) TABLET PO ×2 (09:00→17:30)
[2023-06-25] MEDS: APIXABAN 5 MG TABLET PO ×2 (09:00→22:24)
[2023-06-25 10:46] LABS: Basophils Absolute Auto 0.1 K/mm3 (0.0-0.1); Basophils Percent Auto 0.5 % (0.2-1.2); Eosinophils Absolute Auto 0.2 K/mm3 (0-0.3); Eosinophils Percent Auto 1.8 % (0-4.4); Hematocrit 31.4 % (37.0-47.0); Hemoglobin 9.7 g/dL (12.0-15.0); Immature Granulocyte Absolute 0.39 K/mm3 (0.00-0.031); Immature Granulocyte Percent A 3.2 % (0-0.5); Lymphocytes Absolute Auto 0.98 K/mm3 (0.9-3.2); Lymphocytes Percent Auto 7.9 % (18.3-44.2); Mean Corpuscular HGB Conc 30.9 g/dl (32-36); Mean Corpuscular Hemoglobin 25.5 pg (26-34); Mean Corpuscular Volume 82.6 fl (80-100); Mean Platelet Volume 8.9 fl (7.4-10.4); Monocytes Percent Auto 8.4 % (2.6-8.5); Neutrophils Absolute Auto 9.7 K/mm3 (1.3-6.7); Neutrophils Percent Auto 78.2 % (45.5-73.1); Platelet Count Result 749 k/mm3 (150-375); Red Cell Distribution Width 16.1 % (11.5-14.5); White Blood Count 12.4 K/mm3 (4.5-10.0)
[2023-06-25 10:59] LABS: Alanine Aminotransferase 34 U/L (6-35); Albumin Level 3.5 g/dL (3.5-5.1); Alkaline Phosphatase 78 U/L (38-126); Anion Gap 7 mmol/L (4-12); Aspartate Amino Transferase 39 U/L (14-36); Bilirubin,Total 0.5 mg/dL (0.2-1.3); Blood Urea Nitrogen 11 mg/dL (7-17); Calcium 8.6 mg/dL (8.4-10.2); Carbon Dioxide 24 mmol/L (22-30); Chloride 104 mmol/L (98-107); Estimated CRCL calculation 130 ml/min; Estimated Glomerular Filt Rate > 60; Glucose 132 mg/dL (65-110); Sodium 135 mmol/L (137-145)
[2023-06-25 11:42] LABS: Procalcitonin 0.2 ng/mL
--- NOTE | 2023-06-25 13:08 | PM.PNGS ---
Progress Note: A&P Assessment and Plan (1) Choledocholithiasis with acute cholecystitis: Code(s): K80.42 - Calculus of bile duct with acute cholecystitis without obstruction Status: Acute Assessment and Plan: Will need interval cholecystectomy that can be scheduled as an outpatient in follow-up. Will likely need to wait at least 6-8 weeks. (2) Post-ERCP acute pancreatitis: Code(s): K91.89 - Other postprocedural complications and disorders of digestive system; K85.90 - Acute pancreatitis without necrosis or infection, unspecified Status: Acute Assessment and Plan: Continues to clinically improve. Okay to discharge on oral antibiotics from a surgical standpoint. Follow-up with Dr. Murphy in 3-4 weeks. (3) Leukocytosis: Code(s): D72.829 - Elevated white blood cell count, unspecified Status: Acute Assessment and Plan: Leukocytosis improving, temp. curve trending down. Overall clinically improving. Okay to discharge from a surgical standpoint. Plan I have discussed the patient's case and plan of care with Dr. Murphy. Subjective Subjective Date/Time Seen: 06/25/23 13:08 Patient reports: no new complaints, feels better, pain is less, flatus, bowel movement and fever (overall temp curve trending down) Interval history: Patient reports feeling well today. Still improving daily. Mostly just some mild epigastric and left upper quadrant abdominal pain that is intermittent and improving. No nausea or vomiting. Tolerating a diet. Bowels are moving. No specific complaints at the time of my exam. Exam Const: General: comfortable and no acute distress GI: Inspection: non-distended GI Palp: Yes Soft to palpation, Yes Tenderness to palpation present (GI) (mild tenderness in the epigastric area ), No Guarding due to palpation present (GI) and No Rebound tenderness present Auscultation: normal bowel sounds Objective Data Vital Signs Vital Signs: Vital Signs - 24 hr 06/24/23 14:00 06/24/23 20:51 06/24/23 20:55 Temperature 99.6 F 99.7 F H 99.7 F H Pulse Rate 99 104 H Respiratory Rate 18 18 Blood Pressure 125/86 113/71 Pulse Oximetry 100 99 Oxygen Delivery 06/24/23 20:00 06/25/23 00:15 06/25/23 00:47 Temperature 101.2 F H 100.2 F H Pulse Rate Respiratory Rate Blood Pressure Pulse Oximetry 99 Oxygen Delivery Room Air 06/25/23 06:33 06/25/23 08:59 06/25/23 08:59 Temperature 99.2 F 99.1 F Pulse Rate 94 78 78 Respiratory Rate 16 Blood Pressure 121/63 Pulse Oximetry 97 95 Oxygen Delivery 06/25/23 10:39 Temperature 99.1 F Pulse Rate Respiratory Rate Blood Pressure Pulse Oximetry Oxygen Delivery Intake/Output Intake/Output: Intake & Output 06/22/23 06/23/23 06/24/23 06/25/23 23:59 23:59 23:59 23:59 Intake Total 1720 1620 1505 530 Balance 1720 1620 1505 530 Meds/Results Medications: Active Medications Generic Name Dose Route Start Last Admin Trade Name Freq PRN Reason Stop Dose Admin Acetaminophen 650 mg 06/13/23 01:13 06/25/23 10:39 Acetaminophen 325 Mg Tablet PO 650 mg Q4H PRN Administration Mild Pain (1-3) or Fever Hydrocodone Bitart/Acetaminophen 1 tab 06/16/23 13:44 06/24/23 14:21 Hydrocodone/Acetaminophen (*Crx) 10-325 Mg Tablet PO 1 tab Q6H PRN Administration Pain Rated 7-10 Hydrocodone Bitart/Acetaminophen 1 tab 06/20/23 12:03 06/23/23 20:33 Hydrocodone/Acetaminophen (*Crx) 7.5-325 Mg Tablet PO 1 tab Q6H PRN Administration Pain Rated 4-6 Apixaban 5 mg 06/23/23 21:00 06/25/23 09:00 Apixaban 5 Mg Tablet PO 5 mg Q12HR KSENIA Administration Calcium Carbonate 500 mg 06/18/23 17:00 06/25/23 09:00 Calcium/Vitamin D 500 Mg/5 Mcg (200 I.U.) Tablet PO 500 mg BIDWM KSENIA Administration Dicyclomine HCl 20 mg 06/18/23 18:25 06/19/23 10:22 Dicyclomine Hcl 10 Mg Capsule PO 20 mg QID PRN Administration Abdominal Cramping P
--- NOTE | 2023-06-25 15:25 | PM.IMPN ---
Progress Note: A&P Assessment and Plan (1) Leukocytosis: Code(s): D72.829 - Elevated white blood cell count, unspecified Status: Acute (2) Acute thrombosis of inferior vena cava: Code(s): I82.220 - Acute embolism and thrombosis of inferior vena cava Status: Acute (3) Post-ERCP acute pancreatitis: Code(s): K91.89 - Other postprocedural complications and disorders of digestive system; K85.90 - Acute pancreatitis without necrosis or infection, unspecified Status: Acute (4) Choledocholithiasis: Code(s): K80.50 - Calculus of bile duct without cholangitis or cholecystitis without obstruction Status: Acute (5) Nausea & vomiting: Code(s): R11.2 - Nausea with vomiting, unspecified Status: Acute (6) Transaminitis: Code(s): R74.01 - Elevation of levels of liver transaminase levels Status: Acute Plan Miss Dupont is a 32-year-old female with a past medical history hypertension and obesity who presented on June 11 with complaint of abdominal pain. She was found to have a 3 mm stone in the bile duct on 06/11 underwent ERCP at which time a sphincterotomy was performed. Subsequently developed post ERCP acute pancreatitis. MRCP demonstrated hepatic vein thrombosis and Eliquis was started. Surgery consulted advised patient to be anticoagulated and they will pursue interval cholecystectomy. #Febrile illness and leukocytosis SIRS VS SEPSIS -unclear etiology although the most likely culprit being her pancreatitis. CRP is elevated at 30. Procalcitonin normal at 0.3. Continue to trend. C diff negative. Interestingly enough, she has no symptomatology to report aside from feeling mildly feverish and a mild abdominal discomfort much improved compared to admission. Her fever as high as 103 and last night only about 100 now. Leukocytosis as high as 22,000 now down to 18,000 today. -considering the above, continue ceftriaxone and Flagyl started empirically days ago. Repeat CT with contrast chest abdomen pelvis, repeat UA repeat blood cultures. 06/23: patient still have fever overnight, 100.3, leukocytosis persists, blood culture no growth of bacteria so far. CT chest abdomen pelvis shows no acute cardiopulmonary issue, but acute appendicitis with extensive intra abdomen per Antonio inflammation change, no necrosis or abscess was reported on June 22 Patient has been on ceftriaxone and Flagyl since [place]ina 12. Procalcitonin 0.3, change to zosyn 06/24: patient has low-grade fever over the night, leukocytosis improving, procalcitonin 0.2, blood cultures a per 16 no growth a 2nd days. most likely sirs due to inflammation reaction of acute pancreatitis. start antibiotics today #Post ERCP pancreatitis -lipase has since downtrended. Only with mild abdominal discomfort. Tolerating diet and having loose stools. MiraLax discontinued. Again, as above will repeat imaging to assess for any pseudocyst/abscess/worsening interstitial edema. -GI and General surgery also following. #Anemia -this is new since admission and has down trended however stabilizing in the past few days. Patient reported bright red blood mixed in her stool on 06/21 and considering Eliquis has just been started needs to be watched tightly. Rectal exam performed on 06/21 demonstrating brown stool in the rectal vault without any internal or external hemorrhoids or fissures and good anal sphincter tone. GI is following this issue as well. #Hepatic vein thrombosis -discovered during MRCP. Received 7 days of Eliquis 10 mg p.o. b.i.d. -continue Eliquis 5 mg p.o. b.i.d. -further management in the outpatient setting for months of anticoagulation #Choledocholithiasis -appears to be the reason she presented with abdominal pain. 3 mm stone in the common bile duct not visualized on ERCP. ERCP status post sphincterotomy -general surgery following. Patient to have interval cholecystectomy after being anticoagulated for the hepatic vein
[2023-06-25] MEDS: HYDROcodone/acetaminophen (*CRX) 7.5-325 MG TABLET 1 TAB PO (22:22)
[2023-06-26 05:40] VITALS: BP 128/77; PULSE 98; RESP 14; TEMP 37.2; O2SAT 98
--- NOTE | 2023-06-26 08:14 | PM.IMPN ---
Progress Note: A&P Assessment and Plan (1) Leukocytosis: Code(s): D72.829 - Elevated white blood cell count, unspecified Status: Acute (2) Acute thrombosis of inferior vena cava: Code(s): I82.220 - Acute embolism and thrombosis of inferior vena cava Status: Acute (3) Post-ERCP acute pancreatitis: Code(s): K91.89 - Other postprocedural complications and disorders of digestive system; K85.90 - Acute pancreatitis without necrosis or infection, unspecified Status: Acute (4) Choledocholithiasis: Code(s): K80.50 - Calculus of bile duct without cholangitis or cholecystitis without obstruction Status: Acute (5) Nausea & vomiting: Code(s): R11.2 - Nausea with vomiting, unspecified Status: Acute (6) Transaminitis: Code(s): R74.01 - Elevation of levels of liver transaminase levels Status: Acute Plan Miss Dupont is a 32-year-old female with a past medical history hypertension and obesity who presented on June 11 with complaint of abdominal pain. She was found to have a 3 mm stone in the bile duct on 06/11 underwent ERCP at which time a sphincterotomy was performed. Subsequently developed post ERCP acute pancreatitis. MRCP demonstrated hepatic vein thrombosis and Eliquis was started. Surgery consulted advised patient to be anticoagulated and they will pursue interval cholecystectomy. #Febrile illness and leukocytosis SIRS VS SEPSIS -unclear etiology although the most likely culprit being her pancreatitis. CRP is elevated at 30. Procalcitonin normal at 0.3. Continue to trend. C diff negative. Interestingly enough, she has no symptomatology to report aside from feeling mildly feverish and a mild abdominal discomfort much improved compared to admission. Her fever as high as 103 and last night only about 100 now. Leukocytosis as high as 22,000 now down to 18,000 today. -considering the above, continue ceftriaxone and Flagyl started empirically days ago. Repeat CT with contrast chest abdomen pelvis, repeat UA repeat blood cultures. 06/23: patient still have fever overnight, 100.3, leukocytosis persists, blood culture no growth of bacteria so far. CT chest abdomen pelvis shows no acute cardiopulmonary issue, but acute appendicitis with extensive intra abdomen per Antonio inflammation change, no necrosis or abscess was reported on June 22 Patient has been on ceftriaxone and Flagyl since Alina 12. Procalcitonin 0.3, change to zosyn 06/24: patient has low-grade fever over the night, leukocytosis improving, procalcitonin 0.2, blood cultures a per 16 no growth a 2nd days. most likely sirs due to inflammation reaction of acute pancreatitis. stopped antibiotics 06/24 06/25: leukocytosis improving, no sign infection. continue her antibiotics #Post ERCP pancreatitis -lipase has since downtrended. Only with mild abdominal discomfort. Tolerating diet and having loose stools. MiraLax discontinued. Again, as above will repeat imaging to assess for any pseudocyst/abscess/worsening interstitial edema. -GI and General surgery also following. 06/25: patient tolerated diet well, denies abdomen pain, appetite is improving #Anemia -this is new since admission and has down trended however stabilizing in the past few days. Patient reported bright red blood mixed in her stool on 06/21 and considering Eliquis has just been started needs to be watched tightly. Rectal exam performed on 06/21 demonstrating brown stool in the rectal vault without any internal or external hemorrhoids or fissures and good anal sphincter tone. GI is following this issue as well. #Hepatic vein thrombosis -discovered during MRCP. Received 7 days of Eliquis 10 mg p.o. b.i.d. -continue Eliquis 5 mg p.o. b.i.d. -further management in the outpatient setting for months of anticoagulation #Choledocholithiasis -appears to be the reason she presented with abdominal pain. 3 mm stone in the common bile duct not visualized
[2023-06-26] MEDS: APIXABAN 5 MG TABLET PO ×2 (08:19→21:09)
[2023-06-26] MEDS: PANTOPRAZOLE 40 MG TABLET PO (08:19)
[2023-06-26 08:20] VITALS: PULSE 96
[2023-06-26] MEDS: DICYCLOMINE HCL 10 MG CAPSULE 20 MG PO (08:20)
[2023-06-26] MEDS: CALCIUM/VITAMIN D 500 MG/5 MCG (200 I.U.) TABLET PO ×2 (08:20→17:32)
[2023-06-26] MEDS: LABETALOL HCL 100 MG TABLET PO ×2 (08:20→21:09)
[2023-06-26 08:22] VITALS: TEMP 37.2
[2023-06-26 08:57] LABS: Basophils Absolute Auto 0.1 K/mm3 (0.0-0.1); Basophils Percent Auto 0.6 % (0.2-1.2); Eosinophils Absolute Auto 0.3 K/mm3 (0-0.3); Eosinophils Percent Auto 2.4 % (0-4.4); Hematocrit 32.7 % (37.0-47.0); Hemoglobin 9.9 g/dL (12.0-15.0); Immature Granulocyte Percent A 2.7 % (0-0.5); Immature Platelet Fraction Pct 4.4 % (0.9-11.2); Lymphocytes Absolute Auto 1.07 K/mm3 (0.9-3.2); Lymphocytes Percent Auto 9.6 % (18.3-44.2); Mean Corpuscular HGB Conc 30.3 g/dl (32-36); Mean Corpuscular Hemoglobin 25.7 pg (26-34); Mean Corpuscular Volume 84.9 fl (80-100); Mean Platelet Volume 10.2 fl (7.4-10.4); Monocytes Percent Auto 8.7 % (2.6-8.5); Neutrophils Absolute Auto 8.5 K/mm3 (1.3-6.7); Platelet Count Result 767 k/mm3 (150-375); Red Blood Count 3.85 M/mm3 (4.2-5.4); Red Cell Distribution Width 16.1 % (11.5-14.5); White Blood Count 11.2 K/mm3 (4.5-10.0)
[2023-06-26 09:26] LABS: Alanine Aminotransferase 42 U/L (6-35); Albumin Level 3.8 g/dL (3.5-5.1); Alkaline Phosphatase 86 U/L (38-126); Anion Gap 8 mmol/L (4-12); Aspartate Amino Transferase 49 U/L (14-36); Bilirubin,Total 0.5 mg/dL (0.2-1.3); Blood Urea Nitrogen 11 mg/dL (7-17); Calcium 8.8 mg/dL (8.4-10.2); Carbon Dioxide 21 mmol/L (22-30); Chloride 105 mmol/L (98-107); Estimated CRCL calculation 186 ml/min; Estimated Glomerular Filt Rate > 60; Glucose 105 mg/dL (65-110); Potassium 4.8 mmol/L (3.4-5.0); Sodium 134 mmol/L (137-145)
--- NOTE | 2023-06-26 09:53 | PCNWS ---
Weekly nutritional screen. Patient is tolerating current diet with adequate intake, 25-100%. Still having some nausea and vomiting. No weight loss reported. No nutritional needs at this time.
[2023-06-26 10:58] LABS: Procalcitonin 0.1 ng/mL
[2023-06-26 14:00] VITALS: BP 135/90; PULSE 96; RESP 18; TEMP 37.4; O2SAT 99
[2023-06-26 21:11] VITALS: BP 117/72; PULSE 90; RESP 14; TEMP 37.1; O2SAT 98
[2023-06-27 05:58] VITALS: BP 120/75; PULSE 89; RESP 12; TEMP 36.6; O2SAT 99
[2023-06-27 08:55] VITALS: PULSE 86
[2023-06-27] MEDS: APIXABAN 5 MG TABLET PO (08:55)
[2023-06-27] MEDS: PANTOPRAZOLE 40 MG TABLET PO (08:55)
[2023-06-27] MEDS: LABETALOL HCL 100 MG TABLET PO (08:55)
[2023-06-27] MEDS: CALCIUM/VITAMIN D 500 MG/5 MCG (200 I.U.) TABLET PO (08:55)
[2023-06-27] MEDS: LIDOCAINE 5% PATCH 1 PATCH TRANSDERM (08:55)
[2023-06-27 08:58] LABS: Basophils Absolute Auto 0.1 K/mm3 (0.0-0.1); Basophils Percent Auto 0.6 % (0.2-1.2); Eosinophils Absolute Auto 0.2 K/mm3 (0-0.3); Eosinophils Percent Auto 2.3 % (0-4.4); Hematocrit 33.4 % (37.0-47.0); Hemoglobin 10.2 g/dL (12.0-15.0); Immature Granulocyte Absolute 0.26 K/mm3 (0.00-0.031); Immature Granulocyte Percent A 2.6 % (0-0.5); Lymphocytes Absolute Auto 1.06 K/mm3 (0.9-3.2); Lymphocytes Percent Auto 10.7 % (18.3-44.2); Mean Corpuscular HGB Conc 30.5 g/dl (32-36); Mean Corpuscular Hemoglobin 25.3 pg (26-34); Mean Corpuscular Volume 82.9 fl (80-100); Mean Platelet Volume 8.7 fl (7.4-10.4); Monocytes Absolute Auto 0.8 K/mm3 (0.1-0.6); Monocytes Percent Auto 8.1 % (2.6-8.5); Neutrophils Absolute Auto 7.5 K/mm3 (1.3-6.7); Neutrophils Percent Auto 75.7 % (45.5-73.1); Red Blood Count 4.03 M/mm3 (4.2-5.4); Red Cell Distribution Width 15.6 % (11.5-14.5); White Blood Count 9.9 K/mm3 (4.5-10.0)
[2023-06-27 09:13] LABS: Alanine Aminotransferase 72 U/L (6-35); Albumin Level 3.8 g/dL (3.5-5.1); Alkaline Phosphatase 81 U/L (38-126); Anion Gap 5 mmol/L (4-12); Aspartate Amino Transferase 80 U/L (14-36); Bilirubin,Total 0.4 mg/dL (0.2-1.3); Blood Urea Nitrogen 11 mg/dL (7-17); Carbon Dioxide 26 mmol/L (22-30); Chloride 104 mmol/L (98-107); Estimated CRCL calculation 153 ml/min; Estimated Glomerular Filt Rate > 60; Glucose 111 mg/dL (65-110); Potassium 4.3 mmol/L (3.4-5.0); Sodium 135 mmol/L (137-145)
[2023-06-27 09:38] LABS: Procalcitonin 0.1 ng/mL
[2023-06-27 10:28] LABS: Platelet Count Result 1019 k/mm3 (150-375)
[2023-06-27 14:00] VITALS: BP 119/81; PULSE 87; RESP 16; TEMP 36.7; O2SAT 98
--- NOTE | 2023-06-27 15:39 | PM.DS ---
DS: Admitting Diagnosis Discharge Date June 27, 2023 Admitting Diagnosis Pancreatitis DS: Discharge Diagnosis Discharge Diagnosis (1) Leukocytosis: Code(s): D72.829 - Elevated white blood cell count, unspecified Status: Acute (2) Transaminitis: Code(s): R74.01 - Elevation of levels of liver transaminase levels Status: Acute (3) Cholecystitis: Code(s): K81.9 - Cholecystitis, unspecified Status: Acute (4) Choledocholithiasis: Code(s): K80.50 - Calculus of bile duct without cholangitis or cholecystitis without obstruction Status: Acute (5) Post-ERCP acute pancreatitis: Code(s): K91.89 - Other postprocedural complications and disorders of digestive system; K85.90 - Acute pancreatitis without necrosis or infection, unspecified Status: Acute (6) 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 Is found to have a 3 mm stone in the bile duct via imaging and underwent ERCP on June 11 at which time a sphincterotomy was performed. Subsequently she developed post ERCP pancreatitis and had a prolonged stay. The patient was fever and had leukocytosis. Sets of blood cultures on 2 separate occasions to not grow anything. On June 26 she is stable for discharge home, afebrile, leukocytosis resolved, tolerating a low-fat diet with only minimal abdominal pain. The patient will need an interval cholecystectomy and will see the surgery team in 6-8 weeks to set that up. Reason for this is on MRCP she was found to have a thrombus in the right hepatic vein and inferior vena cava. The patient has been started on Eliquis and prescription made. Adverse effects, risks, benefits discussed with the patient and she understands and agrees to this plan. She knows to follow up with her PCP as well within 1-2 weeks. The patient was full code during admission. Time Spent with Patient Time attestation: Total time spent providing and/or coordinating discharge services: Exam Const: General: cooperative and no acute distress Resp: Effort & Inspection: normal respiratory effort Auscultation: clear to auscultation bilaterally Cardio: Rate: regular rate Rhythm: regular rhythm Heart sounds: S1 normal heart sound present and S2 normal heart sound present GI: GI Palp: No abdominal tenderness Auscultation: normal bowel sounds DS: Data Data Completed and Pending Labs on day of discharge: Labs from last 24 hours 06/27/23 08:47 WBC 9.9 RBC 4.03 L Hgb 10.2 L Hct 33.4 L MCV 82.9 MCH 25.3 L MCHC 30.5 L RDW 15.6 H Plt Count 1019 H MPV 8.7 Immature Gran % (Auto) 2.6 H Neut % (Auto) 75.7 H Lymph % (Auto) 10.7 L [place] % (Auto) 8.1 Eos % (Auto) 2.3 Baso % (Auto) 0.6 Lymph # (Auto) 1.06 [place] # (Auto) 0.8 H Eos # (Auto) 0.2 Baso # (Auto) 0.1 Abs Immat Gran (auto) 0.26 H Absolute Neuts (auto) 7.5 H Absolute Nucleated RBC 0.000 Nucleated RBC % 0.0 Sodium 135 L Potassium 4.3 Chloride 104 Carbon Dioxide 26 Anion Gap 5 BUN 11 Creatinine 0.50 L Estim Creat Clear Calc 153 Estimated GFR > 60 Glucose 111 H Calcium 9.0 Total Bilirubin 0.4 AST 80 H ALT 72 H Alkaline Phosphatase 81 Total Protein 7.0 Albumin 3.8 Procalcitonin 0.1 Preliminary micro results at discharge 06/23/23 11:11 Blood Culture - Preliminary Blood 06/23/23 11:31 Blood Culture - Preliminary Blood Discharge Plan Discharge Attending physician on discharge: Mercedes Dukes Consulting providers: Jozef Murphy; Jhoan Kuhn Discharging Clinician: Mercedes Dukes Patient Disposition: Home, Self-Care Activity: may shower Diet: low fat Discharge Instructions: Patient may discharge from the hospital general surgery
== END 2023-06-27 16:30 | disposition home or self-care (01) | DRG 444 ==
LOC: ANHED 07:19 → ANH3MEDSUR 08:35
PROVIDERS: Hospitalist; Internal Medicine Gastroenterology; Nurse Practitioner Family; Physician Assistant; Student in an Organized Health Care Education/Training Program; Surgery; Admitting Provider Internal Medicine; Emergency Provider Emergency Medicine; Visit Provider General Practice
PROC: 0F798ZZ Dilation of Common Bile Duct, Via Natural or Artificial Opening Endoscopic (ICD-10-PCS; CPT 43260; principal; 2023-06-12 15:30)
DX: K80.60 Calculus of gallbladder and bile duct with cholecystitis, unspecified, without obstruction (principal); I82.0 Budd-Chiari syndrome; I82.220 Acute embolism and thrombosis of inferior vena cava; K85.90 Acute pancreatitis without necrosis or infection, unspecified; K91.89 Other postprocedural complications and disorders of digestive system; E87.1 Hypo-osmolality and hyponatremia; K62.5 Hemorrhage of anus and rectum; Z68.41 Body mass index [BMI] 40.0-44.9, adult; R65.10 Systemic inflammatory response syndrome (SIRS) of non-infectious origin without acute organ dysfunction; I10 Essential (primary) hypertension; E83.51 Hypocalcemia; E87.6 Hypokalemia; D64.9 Anemia, unspecified; R19.7 Diarrhea, unspecified; E66.9 Obesity, unspecified
CPT/HCPCS: 36415; 71260; 74177; 74183; 74329; 76376; 76705; 80048; 80053; 81001; 81025; 82330; 83690; 83735; 84100; 84145; 85025; 85027; 85055; 85610; 85730; 86140; 87040; 87493; 96374; 96375; 99285; A9270; A9577; C9113; G0378; J0330; J0612; J0613; J0696; J1100; J1170; J1644; J1836; J1885; J2001; J2250; J2270; J2405; J2543; J2704; J7030; J7050; J7120; Q9966; Q9967

== ENCOUNTER 2023-07-13 09:51 | Emergency (ER) | payer OTHER, SELFPAY ==
--- NOTE | ~2023-07-13 | CT_ITS ---
EXAMINATION: CT abdomen pelvis w con DATE: 07/13/2023 11:00 INDICATION: Diarrhea. Blood in stool. TECHNIQUE: Computed tomography (CT) of the abdomen and pelvis was performed with 100 mL Omnipaque 350 intravenous contrast. Automated exposure control and iterative reconstruction technique were employe d. The dose-length product was 1285.89 mGy-cm. COMPARISON: CT abdomen and pelvis 06/23/2023, 06/19/23, 06/12/23 FINDINGS: The lungs demonstrate mild atelectasis. There is a small left pleural effusion. The heart s ize is normal. No pericardial effusion. The liver, gallbladder, spleen, adrenal glands, and kidneys a re normal. The pancreas enhances throughout. There is widespread fat stranding and nodularity centere d at the pancreas, consistent with peripancreatic necrosis. These findings abut the ascending and lio cending colon. There are multiple acute necrotic collections around the pancreas. There are no dilate d loops of bowel. The appendix is normal. There are no pathologically enlarged lymph nodes. There is no free intraperitoneal fluid. There is mild thoracic and lumbar spondylosis. IMPRESSION: 1. Acute necrotic pancreatitis with improvement from 06/23/2023. 2. Small left pleural effusion with improvement from 06/23/2023. Reviewed, dictated and finalized at location A.
[2023-07-13 10:06] VITALS: BP 129/81; PULSE 78; RESP 20; TEMP 36.4; O2SAT 98
[2023-07-13 10:17] VITALS: BP 129/81; PULSE 80; RESP 16; TEMP 36.6; O2SAT 100
--- NOTE | 2023-07-13 10:22 | ED.GIBLEED ---
HPI - GI Bleed General Chief complaint: GI Bleed <James Dc APRN - Last Filed: 07/13/23 12:14> Stated complaint: GI Bleed <James Dc APRN - Last Filed: 07/13/23 12:14> Time Seen by Provider: 07/13/23 10:03 <James Dc APRN - Last Filed: 07/13/23 12:14> Source: patient <James Dc APRN - Last Filed: 07/13/23 12:14> Mode of arrival: ambulatory <James Dc APRN - Last Filed: 07/13/23 12:14> Limitations: no limitations <James Dc APRN - Last Filed: 07/13/23 12:14> History of Present Illness HPI Narrative: Narcisa is a 32-year-old female patient presenting to the emergency room today with complaints of possible rectal bleeding. She reports that she had a diarrhea bowel movement this morning and noticed blood in her stool. She is currently taking Eliquis due to a hepatic vein blood clot. History necrotic pancreatitis and left lung effusion. Had cholecystectomy, choledocholithiasis, and ERCP completed. Sees Dr. Ochoa. Reporting mild abdominal discomfort due to diarrhea. <James Dc APRN - Last Filed: 07/13/23 12:14> Related Data Home medications: Home Medications Medication Instructions Recorded Confirmed labetalol 100 mg tablet 100 mg PO Q12H 06/12/23 06/14/23 <James Dc APRN - Last Filed: 07/13/23 12:14> Allergies/Adverse reactions: Allergies Allergy/AdvReac Type Severity Reaction Status Date / Time vancomycin AdvReac Redness of Verified 07/13/23 09:52 Skin <James Dc APRN - Last Filed: 07/13/23 12:14> Review of Systems Review of Systems: Pertinent positives per HPI. Patient denies any fever, chills, rash, headache, visual changes, dizziness, cough, runny nose, sore throat, shortness of breath, chest pain, palpitations, nausea, vomiting, diarrhea, constipation, abdominal pain, or any urinary issues. <James Dc APRN - Last Filed: 07/13/23 12:14> FOR[facility]LY [facility], [facility] Past Medical History Medical History: Medical History (Updated 07/13/23 @ 12:08 by James Dc APRN) Hypertension Post-ERCP acute pancreatitis RUQ pain <James Dc APRN - Last Filed: 07/13/23 12:14> Family History Family History: Family History Other Family history of malignant neoplasm of ovary <James Dc APRN - Last Filed: 07/13/23 12:14> Social History Social History: Social History Smoking status: Never smoker Alcohol intake: never Substance use: never Do You Feel Safe in your Home?: Yes Lack of Transportation: No Lack of Food: Never True Current Housing: I Have Housing Concerned About Future Housing: No Difficulty Paying Gas/Electric Bills: No Difficulty Paying for Meds: No Currently Unemployed: No Education: Decline to Answer Difficulty w/ Childcare or Family Care: No Gender identity (if verbalized by the patient): Female Spiritual care concerns: No <James Dc APRN - Last Filed: 07/13/23 12:14> Comments At the time of my signature, I reviewed and agree with the nursing past medical, surgical, social, and family history. There is no relevant family history pertinent to the patient complaint. <Jaems Dc APRN - Last Filed: 07/13/23 12:14> Exam Narrative: General: Well-developed, obese, in no apparent distress. Head: Normocephalic, atraumatic. Cardio: Regular rate and rhythm, s1 and s2 normal, no murmur appreciated. Resp: Clear to auscultation bilaterally, no rhonchi, rales, wheezing or rubs. Abdomen: Soft, pliable, bowel sounds present in all quadrants, mildly tender to palpation over the lower abdomen, no organomegly, no CVAT tenderness. <James Dc APRN - Last Filed: 07/13/23 12:14> Course Course Emergency Course: Portions of this simba
[2023-07-13 10:31] VITALS: BP 136/62; PULSE 87; RESP 17; O2SAT 96
[2023-07-13 10:33] LABS: Basophils Absolute Auto 0.1 K/mm3 (0.0-0.1); Eosinophils Absolute Auto 0.1 K/mm3 (0-0.3); Eosinophils Percent Auto 2.2 % (0-4.4); Hematocrit 37.6 % (37.0-47.0); Hemoglobin 11.6 g/dL (12.0-15.0); Immature Granulocyte Absolute 0.01 K/mm3 (0.00-0.031); Immature Granulocyte Percent A 0.2 % (0-0.5); Lymphocytes Absolute Auto 1.27 K/mm3 (0.9-3.2); Lymphocytes Percent Auto 25.9 % (18.3-44.2); Mean Corpuscular HGB Conc 30.9 g/dl (32-36); Mean Corpuscular Hemoglobin 25.9 pg (26-34); Mean Corpuscular Volume 83.9 fl (80-100); Mean Platelet Volume 10.2 fl (7.4-10.4); Monocytes Absolute Auto 0.6 K/mm3 (0.1-0.6); Neutrophils Absolute Auto 2.9 K/mm3 (1.3-6.7); Neutrophils Percent Auto 58.7 % (45.5-73.1); Platelet Count Result 346 k/mm3 (150-375); Red Blood Count 4.48 M/mm3 (4.2-5.4); Red Cell Distribution Width 16.1 % (11.5-14.5); White Blood Count 4.9 K/mm3 (4.5-10.0)
[2023-07-13 10:38] LABS: Appearance Urine Cloudy (Clear); Bacteria Urine 1+ /hpf; Bilirubin Urine 1+ (Negative); Blood Urine Negative (Negative); Color Urine Dark Yellow (Yellow); Glucose Urine UA Negative (Negative); Ketones Urine Trace mg/dL (Negative); Leukocyte Esterase Ur Negative LEU/UL (Negative); Nitrate Urine Negative (Negative); Protein Urine Trace mg/dL (Negative); RBC Urine 0-2 /hpf (0-2); Specific Grav Ur 1.027 (1.001-1.035); Squamous Epithelial Cell Urine Many /hpf (Few); WBC Urine 0-5 /hpf (0-3)
[2023-07-13 10:45] LABS: Alanine Aminotransferase 63 U/L (6-35); Albumin Level 4.9 g/dL (3.5-5.1); Alkaline Phosphatase 80 U/L (38-126); Anion Gap 14 mmol/L (4-12); Aspartate Amino Transferase 51 U/L (14-36); Bilirubin,Total 0.6 mg/dL (0.2-1.3); Blood Urea Nitrogen 11 mg/dL (7-17); Calcium 10.3 mg/dL (8.4-10.2); Carbon Dioxide 22 mmol/L (22-30); Chloride 106 mmol/L (98-107); Estimated CRCL calculation 129 ml/min; Estimated Glomerular Filt Rate > 60; Glucose 114 mg/dL (65-110); INR 1.3; Potassium 4.3 mmol/L (3.4-5.0); Prothrombin Time 17.1 Seconds (11.1-14.7); Sodium 142 mmol/L (137-145)
[2023-07-13 10:46] LABS: Partial Thromboplastin Time 36.7 Seconds (22.3-36.8)
[2023-07-13 10:48] LABS: Add Urine Microscopic? YES
[2023-07-13 11:30] VITALS: BP 132/88; PULSE 76; RESP 15; TEMP 36.8; O2SAT 98
[2023-07-13 12:19] VITALS: BP 134/92; PULSE 75; RESP 18; O2SAT 98
== END 2023-07-13 12:20 | disposition home or self-care (01) ==
PROVIDERS: Emergency Provider Nurse Practitioner Family
DX: K62.5 Hemorrhage of anus and rectum (principal); Z79.01 Long term (current) use of anticoagulants; I10 Essential (primary) hypertension
CPT/HCPCS: 36415; 74177; 80053; 81001; 81025; 85025; 85610; 85730; 86850; 86900; 86901; 99284; Q9967

== ENCOUNTER 2023-08-05 07:42 | Outpatient (CLI) | payer OTHER, SELFPAY ==
--- NOTE | ~2023-08-05 | MR_ITS ---
EXAMINATION: MR MRCP wo/w con/w 3D wo ind DATE: 08/05/2023 09:03 INDICATION: Budd-Chiari syndrome. Right upper quadrant abdominal pain. TECHNIQUE: Magnetic resonance imaging (MRI) of the abdomen was performed without and with 20 mL Multi Ezra intravenous contrast. Sequences included coronal T2-weighted FS FSE, coronal T2-weighted FSE, a xial T1-weighted LAVA, coronal FS FIESTA, axial dual-echo T1-weighted SPGR, coronal lava-FLEX, sagitt al T2-weighted FSE, axial T2-weighted FSE, and axial DWI. Thick-slab T2-weighted FSE images were obta ined for magnetic resonance cholangiopancreatography (MRCP). Maximum intensity projection 3-D reconst ructions of the volumetric data were created by the technologist. Postcontrast sequences included cor onal LAVA-flex and time course of axial T1-weighted LAVA. COMPARISON: Abdomen MRI 06/13/2023, CT abdomen and pelvis 07/13/2023, 06/23/23 FINDINGS: ABDOMEN MRI: There is a trace left pleural effusion. There is diffuse hepatic steatosis. There is a 6 mm hyperenhancing mass in right hepatic lobe, likely a hemangioma. There are gallstones in the gallb ladder, which is normal in size. The spleen is normal. There is a 4 mm focus of nonenhancement in the head of the pancreas. There is extensive nodular fat stranding and enhancement centered at the pancr eas, consistent with necrotic pancreatitis. There are no dilated loops of bowel. There is mild peripo rtal lymphadenopathy, likely reactive. ABDOMEN MRCP: The common duct is normal and measures 5 mm. No choledocholithiasis. IMPRESSION: 1. Chronic necrotic pancreatitis, improved from 07/13/23. Reviewed, dictated and finalized at location A.
== END 2023-08-05 07:43 | disposition home or self-care (01) ==
PROVIDERS: Visit Provider Nurse Practitioner Family
DX: K86.1 Other chronic pancreatitis (principal); I82.0 Budd-Chiari syndrome; K91.89 Other postprocedural complications and disorders of digestive system
CPT/HCPCS: 74183; 76376; A9577

== ENCOUNTER 2023-08-18 15:25 | Outpatient (CLI) | payer OTHER, SELFPAY ==
--- NOTE | 2023-08-18 15:30 | ECG_ITS ---
Test Date: 2023-08-18 15:51:31 Measurements Intervals [place] Rate: 79 P: 27 IL: 161 QRS: 20 QRSD: 82 T: 11 QT: 374 QTc: 429 Interpretive Statements SINUS RHYTHM SEPTAL MYOCARDIAL INFARCTION [40+ ms Q WAVE IN V1/V2], PROBABLY OLD No previous ECG available for comparison Electronically Signed On 08-18-2023 16:05:21 CDT by Kelsie Barraza M.D.
[2023-08-18 16:09] LABS: Alanine Aminotransferase 43 U/L (6-35); Albumin Level 4.7 g/dL (3.5-5.1); Alkaline Phosphatase 73 U/L (38-126); Amylase 64 U/L (30-110); Aspartate Amino Transferase 32 U/L (14-36); Bilirubin,Total 0.5 mg/dL (0.2-1.3); Lipase 46 U/L (23-300)
== END 2023-08-18 15:26 | disposition home or self-care (01) ==
LOC: ANHSURGERY 15:31
PROVIDERS: Visit Provider Surgery
DX: K80.20 Calculus of gallbladder without cholecystitis without obstruction (principal); I10 Essential (primary) hypertension; Z01.818 Encounter for other preprocedural examination
CPT/HCPCS: 36415; 80076; 82150; 83690; 93005

== ENCOUNTER 2023-08-24 01:53 | Day surgery (SDC) | payer OTHER, SELFPAY ==
[2023-08-13 11:04] VITALS: BMI 38.1
--- NOTE | 2023-08-13 11:12 | PC.NURSE ---
Report to the Outpatient Waiting Room, entrance under the green pavilion located off [facility], at time _0700_ on date _[id number]_. Planned Procedure Time: _0900_. Time changes happen often and if your time is changed the preop area will call you the afternoon before. - You and your visitor will be asked to self-screen and do not enter if you have any COVID symptoms. - A mask is optional within the hospital at this time. Patients may have clear liquids (water, carbonated beverages, clear teas, apple juice) until 3 hours prior to surgery with a maximum of 20 ounces. - No food from midnight until time of surgery Take the following medications with a SIP of water the morning of surgery: ___Labetolol DO NOT STOP ANY OF YOUR OTHER PRESCRIPTION MEDICATIONS PRIOR TO SURGERY ?EXCEPT THE FOLLOWING Medications to discontinue per physician ___Eliquis and calcium Patient says she has permission of her emergency room clerk to stop eliquis and Dr Murphy said 3 days. Date to take last [id number] Please no make-up, nail trinidadian, hairspray, perfume, deodorant, or body powder the day of surgery. No jewelry (including any body piercings) or valuables the day of surgery, leave them at home. Please take a shower or bath the night before, or the morning of, surgery with an antibacterial soap. Wear comfortable, loose fitting clothing. - Jewelry must be removed prior to entering the operating room. Rings and piercings that are not removed may be cut off. - The hospital will not accept responsibility for valuables. - Please leave all valuables, including medications, at home the day of surgery. If you are going home after surgery, a licensed courtesy driver must drive you home. - NO public transportation without another adult if you receive anesthesia. - We recommend that an adult stay with you for 24 hours following discharge. - We also recommend that you do not drive, make important decision, drink alcoholic beverages, or take any drugs that were not prescribed by your health care provider for at least 24 hours after your discharge time. Follow any additional instructions given to you from your surgeon. If you or anyone in your household have experienced Covid symptoms in the past week, please notify your surgeon or the nurse liaison at the phone number below for possible testing. Telephone instructions given to __Narcisa__and asked if any additional questions and then verbalized understanding. Patient advised to call surgeon office or pre surgery nurse liaison [phone] if any additional questions.
[2023-08-24] VITALS (9 sets, daily range): BP systolic 117–132; BP diastolic 71–80; PULSE 69–80; RESP 16–18; TEMP 36.4–36.7; O2SAT 96–100
[2023-08-24] MEDS: ACETAMINOPHEN 500 MG TABLET 1000 MG PO (06:55)
[2023-08-24] MEDS: LACTATED RINGERS 1,000 ML 30 ML IV CONT ×2 (06:56→09:17)
[2023-08-24] MEDS: KETOROLAC 15 MG/ML VIAL (*BKC) IV PUSH ×2 (06:56→08:34)
--- NOTE | 2023-08-24 06:59 | P.PNAN_ITS ---
Anes - Initial Pre Proc Eval Procedure: Operation Date: 08/24/23 07:30 Proposed Procedures p Laparoscopic Cholecystectomy, Possible Open - Jozef Murphy MD Date/Time: 08/24/23 06:59 Surgeon: Jozef Murphy MD Pre Op Diagnosis: cholelithiasis Patient Data Age: 32 Gender: F Height: 1.6 m Weight: 91 kg Allergies Allergy/AdvReac Type Severity Reaction Status Date / Time vancomycin AdvReac Redness of Verified 08/24/23 06:20 Skin Home Medications Medication Instructions Recorded Confirmed Type labetalol 100 mg tablet 100 mg PO Q12H 06/12/23 08/24/23 History apixaban 5 mg tablet (Eliquis) 5 mg PO Q12HR #60 tabs 06/27/23 08/24/23 Rx calcium carbonate 500 mg-vitamin 1 tablet PO BIDWM #60 tabs 06/27/23 08/24/23 Rx D3 5 mcg (200 unit) tablet (Oyster Shell Calcium-Vitamin D3) Patient hx anesthesia problems: none Family hx anesthesia problems: none Results Review: All pre-operative results and documents have been reviewed as part of the pre- operative evaluation. [facility] Past Medical History Medical History Hypertension Post-ERCP acute pancreatitis Rectal bleeding RUQ pain Family History Family History Other Family history of malignant neoplasm of ovary Social History Social History Smoking status: Never smoker Alcohol intake: never Substance use: never Do You Feel Safe in your Home?: Yes Lack of Transportation: No Lack of Food: Never True Current Housing: I Have Housing Concerned About Future Housing: No Difficulty Paying Gas/Electric Bills: No Difficulty Paying for Meds: No Currently Unemployed: No Education: Decline to Answer Difficulty w/ Childcare or Family Care: No Living arrangements: with family Gender identity (if verbalized by the patient): Female Spiritual care concerns: No Anes - Eval Final PreProcedure Day of Procedure 08/24/23 06:59 Patient weight: obese Heart: regular rate and rhythm Lungs: clear to auscultation Airway: Mallampati scale and special considerations (Small chip L upper incisor. ) Neurological: alert and oriented Last oral intake: >/= 8 hours ASA classification: III Emergent: no Anesthetic plan: proceed Anesthesia type and monitoring: general ETT and standard monitoring Results Review: All pre-operative results and documents have been reviewed as part of the pre- operative evaluation.\ HTN, hx of mesenteric v thrombosis, off anticoag since 08/20/23. Informed Consent: The patient's anesthetic plan and its attendant risks and benefits were discussed with the patient/family/POA. Questions were solicited and answers provided to the satisfaction of the patient/family/POA.
--- NOTE | 2023-08-24 07:21 | PM.IMHP ---
H&P: HPI History of Present Illness Date/Time: 08/24/23 07:21 Chief Complaint: Cholelithiasis, hx CBD stone and pancreatitis Narrative: Narcisa is a 32 y/o female who presents in the office for a gallbladder evaluation. Patient presented to [facility] on 06/12/23 for RUQ pain that radiated to her back and bright, bloody stools. She had CT done on 06/11 that showed 3mm stone in the common bile duct and cholelithiasis. US done on 06/11 showed cholelithiasis. ERCP done on 06/12/23. Another CT was done on 06/12 that showed acute intersitial pancreatitis, cholelithiasis, small volume of ascites and small plural effusions. She was discharged on 06/27/23. Patient symptoms have improved since hospital stay. She reports tolerating a low fat diet, but has decreased appetite. Patient states she has more epigastric pain after more fatty foods. She states she has been taking fiber supplements to help have regular BM's. GI wants to do a repeat MRCP. She is currently scheduled 07/28/23. Patient will also see furniture sander as recommended. Her energy level is improving. Review of Systems Review of Systems: The remainder of the review of systems to include constitutional, HEENT, cardiovascular, respiratory, GI, , integumentary, musculoskeletal, endocrine, immunologic, hematologic, psychiatric, and neurologic are all negative except for which is mentioned above in the HPI. [facility] Past Medical History Medical History Hypertension Post-ERCP acute pancreatitis Rectal bleeding RUQ pain Family History Family History Other Family history of malignant neoplasm of ovary Social History Social History Smoking status: Never smoker Alcohol intake: never Substance use: never Do You Feel Safe in your Home?: Yes Lack of Transportation: No Lack of Food: Never True Current Housing: I Have Housing Concerned About Future Housing: No Difficulty Paying Gas/Electric Bills: No Difficulty Paying for Meds: No Currently Unemployed: No Education: Decline to Answer Difficulty w/ Childcare or Family Care: No Living arrangements: with family Gender identity (if verbalized by the patient): Female Spiritual care concerns: No Meds Home Medications and Allergies Home Medications Medication Instructions Recorded Confirmed Type labetalol 100 mg tablet 100 mg PO Q12H 06/12/23 08/24/23 History apixaban 5 mg tablet (Eliquis) 5 mg PO Q12HR #60 tabs 06/27/23 08/24/23 Rx calcium carbonate 500 mg-vitamin 1 tablet PO BIDWM #60 tabs 06/27/23 08/24/23 Rx D3 5 mcg (200 unit) tablet (Oyster Shell Calcium-Vitamin D3) Allergies Allergy/AdvReac Type Severity Reaction Status Date / Time vancomycin AdvReac Redness of Verified 08/24/23 06:20 Skin Vital Signs Vital Signs - 24 hr 08/24/23 06:19 Temperature 36.4 C L Pulse Rate 69 Respiratory Rate 18 Blood Pressure 132/72 Pulse Oximetry 100 Oxygen Delivery Room Air Exam Const: General: comfortable and no acute distress HENMT: Ears: TM's normal bilaterally Face/Nose/Sinus: Normal nares present Mouth: Yes moist mucous membranes Eyes: General: appearance normal, both eyes and all related structures Sclera: sclerae normal Pupils: Equal, round and reactive pupils present Neck: Neck: supple and no JVD Resp: Effort & Inspection: normal respiratory effort Auscultation: clear to auscultation bilaterally Cardio: Rate: regular rate Rhythm: regular rhythm GI: Other: Soft, obese minimal epigastric tenderness. No rebounds, no masses. Skin: General skin exam: normal color and no rashes or lesions noted Neuro: General: gait normal Speech: normal speech Motor exam (neuro): 5/5 motor strength present throughout Extrem: General: normal to inspection Psych: Mental Status: mental status grossly normal Affect: normal
--- NOTE | 2023-08-24 07:26 | WPDHPUPDATE1 ---
History and Physical Update Update Date/Time: 08/24/23 07:26 History and Physical has been reviewed, including an updated exam of the patient. There are NO changes in the patient's condition. Risks, benefits, and alternatives have been discussed and questions answered. Patient agrees to proceed with procedure.
[2023-08-24] MEDS: ceFAZolin 2 GM/D5W 50 ML 2 GM/50 ML BAG IVPB (07:45)
[2023-08-24] MEDS: BUPivacaine HCL 0.5% 10 ML AMP 30 ML INFILTRATE (08:11)
[2023-08-24] MEDS: LIDO 1%/EPINEPHRINE 1:100,000 50 ML VIAL 30 ML INFILTRATE (08:11)
--- NOTE | 2023-08-24 09:21 | W.PM.PROC2 ---
Procedure Note - Detailed Date of Procedure 08/24/23 Pre-op Diagnosis Cholelithiasis, history of passing common bile duct stone, Post-op Diagnosis Other (Chronic cholecystitis secondary to cholelithiasis, history of passing common bile duct stone) Procedure Performed Laparoscopic cholecystectomy Surgeon Jozef Murphy MD Anesthesia General Indications Patient is a 42-year-old female who was admitted to the hospital initially for a gastric abdominal pain and elevated liver enzymes. It was thought that she was having issues with common bile duct stone. She did have cholelithiasis noted on her initial imaging studies. ERCP was performed and the common bile duct was swept and cleared. Unfortunately she developed pretty severe post ERCP pancreatitis then had subsequent complication of mesenteric vein thrombosis due to the severe pancreatitis. She says was placed on systemic anticoagulation for the mesenteric vein thrombosis. She was discharged from the hospital has been doing fairly well. Presents now for an elective laparoscopic cholecystectomy due to her remaining gallstones. Findings Patient had mild chronic cholecystitis secondary to cholelithiasis. No other significant abnormalities. Description of Procedure After informed consent was obtained patient brought to the operating room she was placed supine position and general endotracheal anesthesia was administered. The abdomen was then prepped and draped usual sterile fashion. A time-out was then performed correctly identifying the patient as well as procedure to be performed. She was given perioperative IV antibiotics. I then entered the abdomen left upper quadrant utilizing a 5mm Optiview port. Once inside the abdomen insufflated to adequate pneumoperitoneum of 15mmHg of CO2. There were no adhesions around the area the umbilicus I placed a 5mm Optiview port in that position. Then looking to the upper portions of the abdomen placed an epigastric 10mm trocar port and 2 right lateral subcostal 5mm trocar ports all under direct visualization. The gallbladder was visualized and it was mildly distended. A laparoscopic grasper used to hold the gallbladder at the dome and the gallbladder was elevated over the right half of the towards the right shoulder. There were adhesions of the omentum to the infundibular gallbladder which were stripped down bluntly with a laparoscopic dissected. Second grasper was then used to hold the gallbladder at the infundibulum. The gallbladder was mildly thickened with chronic inflammatory changes but no acute inflammatory changes. I then continued to dissect down along the infundibular gallbladder stripping down the visceroperitoneum in to identify the cystic duct. Cystic duct was then dissected out circumferentially. Cystic artery was identified and dissected out circumferentially as well. Posterior wall the gallbladder at the infundibulum dissected free of the liver into the critical view was obtained. At this point I then placed 2 clips proximally cystic duct and 2 clips distally high on infundibular gallbladder. The cystic duct was then divided with Endo Davis. In similar fashion cystic artery clipped and divided as well. The gallbladder was then resected off the liver utilized electrocautery. No stones or bile was spilled. Once the gallbladder was freed from the liver is placed into an Endo-Catch bag and brought out through the epigastric port site. The gallbladder and contents were sent to pathology for examination. I then irrigated out the right upper quadrant the abdomen gallbladder fossa with copious amounts sterile saline solution. Hemostasis was excellent. No evidence of bile leak was noted. I then aspirated the fluid from the right upper quadrant from the pelvis. I then removed all the trocar ports under direct visualization all port sites appeared hemostatic. I then allowed the abdomen decompressed. I irrigated the port sites and the port sites were hemos
[2023-08-24] MEDS: fentaNYL CITRATE INJ (*CRX) 100 MCG/2 ML VIAL 25 MCG IV PUSH ×4 (09:35→10:05)
[2023-08-24] MEDS: ONDANSETRON INJ 4 MG/2 ML VIAL IV PUSH (10:21)
[2023-08-24] MEDS: diphenhydrAMINE HCl INJ 50 MG/ML VIAL 12.5 MG IV PUSH (10:46)
[2023-08-24] MEDS: oxyCODONE HCL (*CRX) 5 MG TAB IR PO (11:16)
== END 2023-08-24 11:46 | disposition home or self-care (01) ==
PROVIDERS: Visit Provider Surgery
PROC: 0FT44ZZ Resection of Gallbladder, Percutaneous Endoscopic Approach (ICD-10-PCS; CPT 47562; principal; 2023-08-24 07:30)
DX: K80.10 Calculus of gallbladder with chronic cholecystitis without obstruction (principal); I10 Essential (primary) hypertension; Z79.01 Long term (current) use of anticoagulants; E66.9 Obesity, unspecified; Z68.35 Body mass index [BMI] 35.0-35.9, adult
CPT/HCPCS: 47562; 88304; A9270; J0690; J1100; J1200; J1885; J2250; J2371; J2405; J2704; J3010; J7120

== ENCOUNTER 2024-11-25 14:02 | Outpatient (CLI) | payer OTHER, SELFPAY ==
--- NOTE | ~2024-11-25 | US_ITS ---
EXAMINATION: US pelvic complete w TV INDICATION: Follow-up right ovarian cyst. Comparison:No prior studies for comparison. TECHNIQUE: Multiple transabdominal and endovaginal sonographic images of the pelvis performed. FINDINGS: The uterus measures 6.5 x 3.1 x 3.7 cm. There is trace fluid in the cervix. The endometrial complex measures 4 mm. The right ovary measures 2.8 x 2.3 x 2 cm and the left ovary measures 2.5 x 2.2 x 1.3 cm. There are small follicles in each ovary. Normal doppler signal in both ovaries. There is no free fluid in the pelvis. There are no abnormal masses seen on either side. IMPRESSION: 1. Unremarkable pelvic ultrasound. Reviewed, dictated and finalized at location O.
== END 2024-11-25 14:03 | disposition home or self-care (01) ==
LOC: ANHIMG 14:06
PROVIDERS: Visit Provider Obstetrics & Gynecology Gynecology
DX: N83.201 Unspecified ovarian cyst, right side (principal)
CPT/HCPCS: 76830; 76856